=== PATIENT | male | born 1940 | race Caucasian/White ===

== ENCOUNTER → 2019-07-25 | Outpatient (REF) | payer MEDICARE ==
[~2019-07-25] MED LIST: ALLO100T PO; AMLO25TA PO; ASPI325T PO; ASPI81TA83 OR; BENAZEPRIL/HCTZ OR; CALC1CAP31 PO; CRES10TA32 OR; FISHCAP PO; FURO40TA2 PO; KLOR1TAB69 PO; LOPRESSOR PO; METO1TAB32 PO; MINO2.5T PO; PLAV75TA2 OR; TYLE325T5 PO
[2019-07-27 12:45] LABS: HEPATITIS B CORE ANTIBODY IGM NEGATIVE (NEGATIVE); HEPATITIS B SURFACE ANTIBODY NEGATIVE (POSITIVE); HEPATITIS B SURFACE ANTIGEN NEGATIVE (NEGATIVE); HEPATITIS C VIRUS ABY INDEX 0.1 INDEX (<0.8)
== END ==
LOC: M LAB REF 16:46
PROVIDERS: ATTEND Internal Medicine Nephrology
DX: N18.6 End stage renal disease (principal); Z79.899 Other long term (current) drug therapy

== ENCOUNTER 2019-09-01 11:56 | Outpatient (CLI) | payer MEDICARE ==
[~2019-09-01] VITALS: Ht 177.8 cm; Wt 104.5 kg
[2019-09-01 13:00] VITALS: BP 139/61
[2019-09-01 14:00] VITALS: BP 130/67
[2019-09-01] MEDS ORDERED: diphenhydrAMINE INJ 50MG/ML VIAL (J1200) IV PRN (14:00)
[2019-09-01] MEDS ORDERED: EPINEPHrine INJ 1 MG/ML 1ML VIAL IM PRN (14:00)
[2019-09-01] MEDS ORDERED: ALBUTEROL SULFATE 2.5 MG/0.5 ML INH NEB SOLN INH PRN (14:00)
[2019-09-01] MEDS ORDERED: methylPREDNISolone INJ 125 MG/2 ML VIAL (J2930) IV PRN (14:00)
[2019-09-01] MEDS ORDERED: FERRIC CARBOXYMALTOSE INJ 750 MG in NS 250 ML IV ONE (14:00)
[2019-09-01] MEDS ORDERED: NS 1,000 ML IV SCH (14:00)
[2019-09-01] MEDS ORDERED: diphenhydrAMINE INJ 50MG/ML VIAL (J1200) IV ONE (14:00)
[2019-09-01 15:00] VITALS: BP 141/74
[2019-09-01 15:30] VITALS: BP 141/67
== END 2019-09-01 15:35 | disposition home or self-care (01) ==
LOC: M INFU 11:56
PROVIDERS: ATTEND Internal Medicine Nephrology
DX: D50.9 Iron deficiency anemia, unspecified (principal)
CPT/HCPCS: 96365; J1200; J1439

== ENCOUNTER 2019-09-08 10:28 | Outpatient (CLI) | payer MEDICARE ==
[~2019-09-08] VITALS: Ht 177.8 cm; Wt 104.5 kg
[2019-09-08 10:50] VITALS: BP 123/61
[2019-09-08] MEDS ORDERED: EPINEPHrine INJ 1 MG/ML 1ML VIAL IM PRN (11:00)
[2019-09-08] MEDS ORDERED: diphenhydrAMINE INJ 50MG/ML VIAL (J1200) IV PRN (11:00)
[2019-09-08] MEDS ORDERED: methylPREDNISolone INJ 125 MG/2 ML VIAL (J2930) IV PRN (11:00)
[2019-09-08] MEDS ORDERED: FERRIC CARBOXYMALTOSE INJ 750 MG in NS 250 ML IV ONE (11:00)
[2019-09-08] MEDS ORDERED: NS 1,000 ML IV SCH (11:00)
[2019-09-08] MEDS ORDERED: diphenhydrAMINE INJ 50MG/ML VIAL (J1200) IV ONE (11:00)
[2019-09-08] MEDS ORDERED: ALBUTEROL SULFATE 2.5 MG/0.5 ML INH NEB SOLN INH PRN (11:00)
[2019-09-08 12:31] VITALS: BP 143/67
== END 2019-09-08 12:35 | disposition home or self-care (01) ==
LOC: M INFU 10:28
PROVIDERS: ATTEND Internal Medicine Nephrology
DX: D50.9 Iron deficiency anemia, unspecified (principal)
CPT/HCPCS: 96365; 96375; J1200; J1439

== ENCOUNTER → 2019-09-28 | Outpatient (CLI) | payer MEDICARE ==
[~2019-09-28] MED LIST changes: +ISOVUE-370 76% 100ML VIAL (Q9967) As Ordered ONE
--- NOTE | 2019-09-28 08:23 | REP ---
CT PULMONARY ANGIOGRAM: With IV contrast. HISTORY: Chronic pulmonary embolism. COMPARISON STUDIES: Comparison noncontrast CT study March 21, 2016. CONTRAST DOSE: 75 mL of Isovue [address] TECHNIQUE: Helical scanning is acquired and overlapping 1.5 mm and contiguous 3 mm axial images are reformatted. In addition, maximum intensity projection and multiplanar re-formation images are generated in sagittal and coronal imaging projections. CT PULMONARY ANGIOGRAPHIC FINDINGS: There is good opacification of the pulmonary arterial tree. Median sternotomy wires and mediastinal clips are noted consistent with previous coronary bypass surgery. There is no evidence of pulmonary arterial filling defect or vessel cutoff. No CT evidence of pulmonary embolism is visible. The thoracic aorta shows vascular calcification. No evidence of aneurysm or dissection. There is mild diffuse pleural thickening and there are pleural calcifications scattered bilaterally suggesting previous asbestos exposure. No adrenal lesion is seen. There is marked atrophy of the left kidney and mild atrophy of the right kidney. Cholelithiasis is noted. There is an infrarenal abdominal aortic aneurysm visible at the bottom of the imaging field of view with a stent graft in place. Cardiomegaly is observed. There is no evidence of pericardial or free pleural effusion. There is a small quantity of fissural fluid on the right. There are scattered pretracheal and superior mediastinal lymph nodes. The largest of these is a right paratracheal lymph node in the superior mediastinum measuring 13 mm in short axis dimension. No definite adenopathy. One or two of these lymph nodes contain granulomatous calcifications. There is a right-sided central venous tunnel catheter in place. IMPRESSION: No CT evidence of pulmonary embolus. Cardiomegaly. Small quantity of pleural fluid in the fissures. Cholelithiasis, renal cortical atrophy, granulomatous changes. Calcific pleural plaquing. Prior sternotomy and abdominal aortic stent graft. Electronically Signed by Nirmal Ambrosio MD 09/28/2019 08:59 A
== END ==
LOC: M RAD 07:38
PROVIDERS: ATTEND Internal Medicine Nephrology
DX: I27.82 Chronic pulmonary embolism (principal)
CPT/HCPCS: 71275; Q9967

== ENCOUNTER 2020-07-11 16:02 | Inpatient (IN) | payer MEDICARE ==
[~2020-07-11] VITALS: Ht 177.8 cm; Wt 87.9 kg
[2020-07-11] MEDS: PANTOPRAZOLE SODIUM 40 MG in D5W 50 ML IV SCH ×2 (03:40→18:58)
[~2020-07-11 16:02] MED LIST changes: -ISOVUE-370 76% 100ML VIAL (Q9967) As Ordered ONE
--- OUTSIDE RECORDS SUMMARY | 2020-07-11 16:11 | CCD ---
Continuity of Care Document (CCD) Created on: 05/22/2020 Jaren Wallis JR External Reference #: [id number] : [id number] Sex: Male Author Author Jaren FIELD D.O. Organization Unknown Address [address] [address] Phone [phone] Problems Active Problems Provider Date Coronary arteriosclerosis Delvis Field D.O., [place] Onset : 04/02/2008 Hyperlipidemia Delvis Field D.O., FAAFP Onset: 03/22 Benign essential hypertension Delvis Field D.O., MIRNAFP O nset: 04/02/2008 Type 2 diabetes mellitus Delvis Field D.O., FAAFP Onset: 01/17/2010 Gout Delvis Field D.O., FAAFP Onset: 12/21 Cerebrovascular disease Delvis Field D.O., FAAFP Onset: 03/14/2011 Obesity Delvis Field D.O., FAAFP Onset: 06/23 Proteinuria Delvis Field D.O., FAAFP Onset: 06/23 Chronic kidney disease stage 4 Delvis Field D.O., FAAFP Onset: 06/07/2015 History of malignant neoplasm of bladder Lashonda Nj, FAAFP Onset: 07/11/2018 Note: followed by urology said to be non invasive Social History Type Date Description Comments Sex Unknown Tobacco Use Start: Unknown Never Smoked Cigarettes ETOH Use current.liquor.rarely Tobacco Use Start: Unknown Patient has never smoked Smoking Status Reviewed: 05/22/20 Patient has never smoked Allergies, Adverse Reactions, Alerts Active Allergies Reaction Severity Comments Date No Drug Allergies 03/31/2008 NSAIDs RENAL FAILURE 03/29/2014 Inactive Allergies NKDA 12/09/2010 Medications Active Medications SIG Qnty Indications Ordering Provide r Date Crestor 10mg Tablets take one tablet by mouth every day 90tabs Delvis Field D.O., [facility] 05/2016 Clopidogrel Bisulfate 75mg Tablets take one tablet by mouth every day 90tabs Laura Nj, [facility] 11/17/[address] 1 by mouth every day Unknown Calcitriol 0.25mcg Capsules take one capsule by mouth one time daily during dyalisis 3 times a week Unknown Sevelamer Carbonate 800mg Tablets 2 PO tid with meals Unknown Vitamin D3 Ultra Potency 1.25mg (22228 Ut) Tablets take one tablet once a week Unknown Pentoxifylline ER 400mg Tablets ER 1 by mouth twice a day Unknown History Medications Mupirocin 2% Ointment top twice a day x 10 days prn Lesions Please Call Patient 22gm Delvis Field D.O., [facility] 02/22/2020 - 05/22/2020 Medications Administered in Office Medication SIG Qnty Indications Ordering Provider Date Injection (SC)/(Im) Injection Delvis Field D.O., [facility] 01/14/2010 Immunizations CPT Code Status Date Vaccine Reaction Lot # [id number] Given 01/14/2010 Tdap Tetanus,Dip htheria Toxoids/Acellular Pertussis 7Yrs Or Older [id number] Refused 05/22/2020 Influenza Virus Vaccine, Quadrivalent, Slit Virus, Im Use 3Y & Up 05754 Refused 03/27/2017 Influenza Virus Vaccine, Quadrivalent, Slit Virus, Im Use 3Y & Up 01159 Refused 04/18/2016 Influenza Virus Vaccine, Quadrivalent, Slit Virus, Im Use 3Y & Up 98896 Refused 05/19/2014 Influenza Virus Vac. Split Virus Individuals 3 Years And Above 79320 Refused 07/14/2012 Pneumococcal Immunization 67867 Refused 04/07/2012 Influenza Virus Vac. Split Virus Individuals 3 Years And Above pt refused Vital Signs Date Vital Result Comment 05/22/2020 1:50pm BP Systolic 118 mmHg BP Diastolic 68 mmHg Body Temperature 98.4 F Heart Rate 70 /min Respiratory Rate 16 /min Height 70 inches 5'10" Weight 198.00 lb [place] Body Weight 166 lb BMI (Body Mass Index) 28.4 kg/m2 O2 % BldC Oximetry 97 % 02/21/2020 1:14pm BP Systolic 118 mmHg BP Diastolic 74 mmHg Body Temperature 98.0 F Heart Rate 70 /min Respiratory Rate 16 /min Height 70 inches 5'10" Weight 198.00 lb [place] Body Weight 166 lb BMI (Body Mass Index) 28.4 kg/m2 O2 % BldC Oximetry 94 % Results Test Acquired Date Facility Test Result H/L Range Note Laboratory test finding 05/22/2020 [facility] Hemoglobin A1c 4.9 % 4.40 - 6.10 Laboratory test finding 02/21/2020 [facility] Hemoglobin A1c 5.3 % 4.40 - 6.10 Procedures Date Code Description Status 02/21/2020 35570 Capillary Blood Collection Finge r, Heel, Ear Stick Completed Medical Devices Description No Information Available Encounters Type Date Location Provider Dx Diagnosis Office Visit 05/22/2020 1:30p [place] [facility] Tim Nj, [facility] R73.09 Other abnormal glucose Z99.2 Dependence on renal dialysis E78.5 Hyperlipidemia, unspecified I25.810 Atherosclerosis of CABG w/o angina pectoris Office Visit 02/21/2020 1:00p [place] [facility] Tim Nj, FAAFP E11.9 Type 2 diabetes mellitus without complic ations I73.9 Peripheral vascular disease, unspecified Office Visit 11/24/2019 1:00p [place] [facility] Aaron Trejo M.D . R21 Rash and other nonspecific skin eruption Assessments Date Code Description Provider 05/22/2020 R73.09 Other abnormal glucose Delvis Field D.O., FAAFP 05/22/2020 Z99.2 Dependence on renal dialysis Calixto Field D.O., FAAFP 05/22/2020 E78.5 Hyperlipidemia, unspecified Ever Field D.O., FAAFP 05/22/2020 I25.810 Atherosclerosis of c oronary artery bypass graft(s) without angina pectoris Delvis Field D.O., FAAFP 02/21/2020 E11.9 Type 2 diabetes mellitus without complications Delvis Field D.O., FAAFP 02/21/2020 I73.9 Peripheral vascular disease, uns pecified Delvis Field D.O., FAAFP 11/24/2019 R21 Rash and other nonspecific skin eruption Aaron Trejo M.D. Plan of Treatment Future Appointment(s):* 08/21/2020 1:45 pm - Delvis Field D.O., FAA at [facility] Functional Status Description No Information Available Mental Status Description No Information Available Referrals Description No Information Available
--- OUTSIDE RECORDS SUMMARY | 2020-07-11 16:11 | CCD | Continuity of Care Document ---
Author Author Jaren ARANA Organization Unknown Address [address] [place] [address] Phone [phone] Care Team Providers Care Training And Documentation Specialist Name Role Phone Delvis Veronica D.O. AUTM [phone] Luke Avila M.D. AUTM [phone] John Mullen M.D. AUTM [phone] [facility] Care Everywhere AUTM Problems Active Problems Provider Date Essential hypertension Giuseppe Espinosa M.D. Onset: 01/23/2014 Hyperlipidemia Giuseppe Espinosa M.D. Onset: 01/23/2014 Coronary arteriosclerosis Giuseppe Espinosa M.D. Onset: 014 Acute myocardial infarction Giuseppe Espinosa M.D. Onset: 01/23 Cerebrovascular disease Giuseppe Espinosa M.D. Onset: 4 Abdominal aortic aneurysm without rupture Belinda Hernandez M.D. Onset: 02/10/2014 Proteinuria John Mullen M.D. Onset: 02/21/2014 History of cerebrovascular accident John Mullen M.D. Onse t: 02/21/2014 Gout John Mullen M.D. Onset: 02/21/2014 Type 2 diabetes mellitus John Mullen M.D. Onset: 02/22/20 14 Kidney disease Onset: 12/13/2014 End-stage renal disease Nael Welsh Onset: 0 Social History Type Date Description Comments Sex Unknown ETOH Use Rarely consumes alcohol Tobacco Use Reviewed: 05/10/20 Patient has never smoked Smoking Status Reviewed: 05/10/20 Patient has never smoked Allergies, Adverse Reactions, Alerts Active Allergies Reaction Severity Comments Date Contrast Dye decreased renal function Medications Active Medications SIG Qnty Indications Ordering Provide r Date Metoprolol Succinate ER 50mg Tablets ER 24HR bid Unknown Clopidogrel Bisulfate 75mg Tablets 1 by mouth every day 30tabs Unknown Crestor 10mg Tablets 3 Days A Week Unknown Calcitriol 0.25mcg Capsules e very day Unknown Aspirin [address] tu trae day Unknown Vitamin D (Ergocalciferol) 1.25mg (63150 Ut) Capsules every week Unknown Sevelamer HCL 800mg Tablets 3 tablets 3x /day Unknown Pentoxifylline ER 400mg Tablets ER take one tablet by mouth three times a day Unknown Immunizations Description No Information Available Vital Signs Date Vital Result Comment 05/10/2020 1:18pm BP Systolic Right Arm 110 mmHg BP Diastolic Right Arm 70 mmHg Heart Rate 40 /min Height 70 inches 5'10" Weight 195.00 lb Weight 88.452 kg BMI (Body Mass Index) 28.0 kg/m2 04/18/2020 2:08pm BP Systolic Right Arm 130 mmHg BP Diastolic Right Arm 80 mmHg Heart Rate 70 /min Weight 195.00 lb Weight 88.452 kg Results Test Acquired Date Facility Test Result H/L Range Note Xray 01/17/2020 Main Office [phone] Carotid Ultrasound Bilateral <pending> Abdominal Aortic Aneurysm Ultrasound <pending> Procedures Date Code Description Status 01/17/2020 81259 Duplex Scan Aorta/In f Vena Cava/Iliac Vasc/Bypass GRFT LTD/Fol-Up Completed 01/17/2020 22838 Duplex Scan Extracranial Arterie s, Follow-Up Or Limited Study Completed 01/17/2020 98067 Duplex Scan Extracranial Arterie s, Follow-Up Or Limited Study Completed Medical Devices Description No Information Available Encounters Type Date Location Provider Dx Diagnosis Office Visit 04/18/2020 2:00p Main Office Belinda Hernandez M.D. 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 01/17/2020 Z48.812 Encounter for surgic al aftercare following surgery on the circulatory system Belinda Hernandez M.D. 01/17/2020 Z48.812 Encounter for surgic al aftercare following surgery on the circulatory system [facility] Lab 01/17/2020 I71.4 Abdominal aortic aneurysm, witho ut rupture Belinda Hernandez M.D. 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 11/18/2019 L97.419 Non-pressure chronic ulcer of right heel and midfoot with unspecified severity Belinda Hernandez M.D. Plan of Treatment Future Appointment(s):* 01/22/2021 11:30 am - [facility] * 01/22/2021 11:30 am - Belinda Hernandez M.D. at [facility] * 08/17/2020 11:00 am - Belinda Hernandez M.D. at Main Office * 08/17/2020 10:00 am - Vascular Lab at Main Office Functional Status Description No Information Available Mental Status Description No Information Available Referrals Description No Information Available
--- OUTSIDE RECORDS SUMMARY | 2020-07-11 16:11 | CCD | Continuity of Care Document ---
Author Author Jaren VERONICA D.O. Organization Unknown Address [address] [address] Phone [phone] Problems Active Problems Provider Date Coronary arteriosclerosis Delvis Veronica D.O., [place] Onset : 04/02/2008 Hyperlipidemia Delvis Veronica D.O., FAAFP Onset: 03/22 Gout Delvis Veronica D.O., FAAFP Onset: 12/21 Cerebrovascular disease Delvis Veronica D.O., FAAFP Onset: 03/14/2011 Obesity Delvis Veronica D.O., FAAFP Onset: 06/23 Proteinuria Delvis Veronica D.O., FAAFP Onset: 06/23 Chronic kidney disease stage 4 Delvis Veronica D.O., FAAFP Onset: 06/07/2015 History of malignant neoplasm of bladder Lashonda Nj, FAAFP Onset: 07/11/2018 Note: followed by urology said to be non invasive Renal dialysis Delvis Veronica D.O., FAAFP Onset: 06/2019 Social History Type Date Description Comments Sex [...] tablet by mouth every day 90tabs Delvis Veronica D.O., FAAFP 05/2016 Clopidogrel Bisulfate 75mg Tablets take one tablet by mouth every day 90tabs Laura Nj, [facility] 11/17/[address] 1 by mouth every day Unknown Calcitriol 0.25mcg Capsules take one capsule by mouth one time daily during dyalisis 3 times a week Unknown Sevelamer Carbonate 800mg Tablets 2 PO tid with meals Unknown Vitamin D3 Ultra Potency 1.25mg (38894 Ut) Tablets take one tablet once a week Unknown Pentoxifylline ER 400mg Tablets ER 1 by mouth twice a day Unknown History Medications Mupirocin 2% Ointment top twice a day x 10 days prn Lesions Please Call Patient 22gm Delvis Veronica D.O., [facility] 02/22/2020 - 05/22/2020 Medications Administered in Office Medication SIG Qnty Indications Ordering Provider Date Injection (SC)/(Im) Injection Delvis Veronica D.O., [facility] 01/14/2010 Immunizations CPT Code Status Date Vaccine Reaction Lot # [id number] Given 01/14/2010 Tdap Tetanus,Dip htheria Toxoids/Acellular Pertussis 7Yrs Or Older [id number] Refused 05/22/2020 Influenza Virus Vaccine, Quadrivalent, Slit Virus, Im Use 3Y & Up 47064 Refused 03/27/2017 Influenza Virus Vaccine, Quadrivalent, Slit Virus, Im Use 3Y & Up 63930 Refused 04/18/2016 Influenza Virus Vaccine, Quadrivalent, Slit Virus, Im Use 3Y & Up 31796 Refused 05/19/2014 Influenza Virus Vac. Split Virus Individuals 3 Years And Above 98182 Refused 07/14/2012 Pneumococcal Immunization 19609 Refused 04/07/2012 Influenza Virus Vac. Split Virus Individuals 3 Years And Above pt refused Vital Signs Date Vital Result Comment 05/22/2020 1:50pm BP Systolic 118 mmHg BP Diastolic 68 mmHg Body Temperature 98.4 F Heart Rate 70 /min Respiratory Rate 16 /min Height 70 inches 5'10" Weight 198.00 lb [place] Body Weight 166 lb BMI (Body Mass Index) 28.4 kg/m2 O2 % BldC Oximetry 97 % 02/21/2020 1:14pm BP Systolic 118 mmHg BP Diastolic 74 mmHg Body Temperature 98.0 F Heart Rate 70 /min Respiratory Rate 16 /min Height 70 inches 5'10" Weight 198.00 lb [place] Body Weight 166 lb BMI (Body Mass Index) 28.4 kg/m2 O2 % BldC Oximetry 94 % Results Test Acquired Date Facility Test Result H/L Range Note Laboratory test finding 05/22/2020 [facility] Hemoglobin A1c 4.9 % 4.40 - 6.10 Laboratory test finding 02/21/2020 [facility] Hemoglobin A1c 5.3 % 4.40 - 6.10 Procedures Date Code Description Status 05/22/2020 39378 Capillary Blood Collection Finge r, Heel, Ear Stick Completed 02/21/2020 00669 Capillary Blood Collection Finge r, Heel, Ear Stick Completed Medical Devices Description No Information Available Encounters Type Date Location Provider Dx Diagnosis Office Visit 05/22/2020 1:30p [place] [facility] Tim Nj, FAAFP R73.09 Other abnormal glucose Z99.2 Dependence on renal dialysis E78.5 Hyperlipidemia, unspecified I25.810 Atherosclerosis of CABG w/o angina pectoris Office Visit 02/21/2020 1:00p [place] [facility] Tim Nj, FAAFP E11.9 Type 2 diabetes mellitus without complic ations I73.9 Peripheral vascular disease, unspecified Assessments Date Code Description Provider 05/22/2020 R73.09 Other abnormal glucose Delvis Veronica D.O., FAAFP 05/22/2020 Z99.2 Dependence on renal dialysis Calixto Veronica D.O., FAAFP 05/22/2020 E78.5 Hyperlipidemia, unspecified Ever Veronica D.O., FAAFP 05/22/2020 I25.810 Atherosclerosis of c oronary artery bypass graft(s) without angina pectoris Delvis Veronica D.O., FAAFP 02/21/2020 E11.9 Type 2 diabetes mellitus without complications Delvis Veronica D.O., FAAFP 02/21/2020 I73.9 Peripheral vascular disease, uns pecified Delvis Veronica D.O., FAAFP Plan of Treatment Future Appointment(s):* 08/21/2020 1:45 pm - Delvis Veronica D.O., MIRNAFP at [facility] Functional Status Description No Information Available Mental Status Description No Information Available Referrals Description No Information Available
--- OUTSIDE RECORDS SUMMARY | 2020-07-11 16:11 | CCD | Continuity of Care Document ---
Author Author Jaren ARANA Organization Unknown Address [address] [place] [address] Phone [phone] Care Team Providers Care Hot Worker Name Role Phone Delvis Veronica D.O. AUTM [phone] Luke Avila M.D. AUTM [phone] John Mullen M.D. AUTM [phone] [facility] Care Everywhere AUTM [phone] Problems Active Problems Provider Date Essential hypertension [...] trae day Unknown Vitamin D (Ergocalciferol) 1.25mg (59702 Ut) Capsules every week Unknown Sevelamer HCL [...] H/L Range Note Xray 01/17/2020 Main Office [phone] Carotid Ultrasound Bilateral <pending> Abdominal Aortic Aneurysm Ultrasound <pending> Procedures Date Code Description Status 05/01/2020 66480 Revise Arteriovenous Fistula Com pleted 01/17/2020 62069 Duplex Scan Aorta/In f Vena Cava/Iliac Vasc/Bypass GRFT LTD/Fol-Up Completed 01/17/2020 67301 Duplex Scan Extracranial Arterie s, Follow-Up Or Limited Study Completed 01/17/2020 80492 Duplex Scan Extracranial Arterie s, Follow-Up Or Limited Study Completed Medical Devices Description No Information Available Encounters Type Date Location Provider Dx Diagnosis Office Visit 05/10/2020 1:15p Main Office Nael Welsh Z48.812 Encntr for surgical aftcr following surgery on the circ sys Office Visit 04/18/2020 2:00p Main Office Belinda Hernandez M.D. 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 04/18/2020 N18.6 End stage renal disease Belinda [...] Future Appointment(s):* 01/22/2021 11:30 am - [facility] * 01/22/2021 11:30 am - Belinda Hernandez M.D. at [facility] * 08/17/2020 11:00 am - Belinda Hernandez M.D. at Main Office * 08/17/2020 10:00 am - Vascular Lab at Main Office 05/10/2020 - Emerald Welsh.* Z48.812 Encntr for surgical aftcr following surgery on the circ sys Functional Status Description No Information Available Mental Status Description No Information Available Referrals Description No Information Available
--- OUTSIDE RECORDS SUMMARY | 2020-07-11 16:11 | CCD ---
Continuity of Care Document (CCD) Created on: 04/24/2020 Jaren Wallis JR External Reference #: [id number] Sex: Male Author Author Jaren HERNANDEZ MD Organization Unknown Address [address] [place] [address] Phone [phone] Care Team Providers Care Cnc Mill Set Up Operator Name Role Phone Jeremías Delvis Newell AUTM [phone] Luke Avila M.D. AUTM [phone] John Mullen M.D. AUTM [phone] Problems Active Problems Provider Date Essential hypertension [...] Onset: 02/22/20 14 Kidney disease Onset: 12/13/2014 Social History Type Date Description Comments Sex Unknown ETOH Use Rarely consumes alcohol Tobacco Use Reviewed: 04/18/20 Patient has never smoked Smoking Status Reviewed: 04/18/20 Patient has never smoked Allergies, Adverse Reactions, [...] Unknown Aspirin [address] tu larkin day Unknown Vitamin D (Ergocalciferol) 1.25mg (13081 Ut) Capsules every week Unknown Sevelamer HCL 800mg Tablets 3 tablets 3x /day Unknown Pentoxifylline ER 400mg Tablets ER take one tablet by mouth three times a day Unknown History Medications Eliquis 2.5mg Tablets 1 tab by mouth twice a day 60tabs Belinda Hernandez M.D. 10/25/2019 - 10/30/2019 Immunizations Description No Information Available Vital Signs Date Vital Result Comment 04/18/2020 2:08pm BP Systolic Right Arm 130 mmHg BP Diastolic Right Arm 80 mmHg Heart Rate 70 /min Weight 195.00 lb Weight 88.452 kg 01/24/2020 11:03am BP Systolic Right Arm 131 mmHg BP Diastolic Right Arm 89 mmHg Heart Rate 69 /min Body Temperature 96.0 F Respiratory Rate 17 /min Weight 199.94 lb Weight 90.700 kg O2 % BldC Oximetry 97 % Pain Level 0 Results Test Acquired Date Facility Test Result H/L Range Note Xray 01/17/2020 Main Office [phone] Carotid Ultrasound Bilateral <pending> Abdominal Aortic Aneurysm Ultrasound <pending> Procedures Date Code Description Status 01/17/2020 30841 Duplex Scan Aorta/In f Vena Cava/Iliac Vasc/Bypass GRFT LTD/Fol-Up Completed 01/17/2020 19430 Duplex Scan Extracranial Arterie s, Follow-Up Or Limited Study Completed 01/17/2020 92638 Duplex Scan Extracranial Arterie s, Follow-Up Or [...] Future Appointment(s):* 01/22/2021 11:30 am - [facility] * 01/22/2021 11:30 am - Belinda Hernandez M.D. at [facility] * 08/17/2020 11:00 am - Belinda Hernandez M.D. 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
--- OUTSIDE RECORDS SUMMARY | 2020-07-11 16:11 | CCD | Continuity of Care Document ---
Author Author Jaren HERNANDEZ MD Organization Unknown Address [address] [place] [id number] Phone [phone] Care Team Providers Care Customer Engineering Specialist Name Role Phone Delvis Veronica D.O. AUTM [phone] Luke Avila M.D. AUTM [phone] John Mullen M.D. AUTM [phone] [facility] Care Everywhere AUTM Problems Active Problems [...] Aspirin [address] tu trae Unknown Vitamin D (Ergocalciferol) 1.25mg (88239 Ut) Capsules every week Unknown Sevelamer HCL [...] H/L Range Note Xray 01/17/2020 Main Office [phone] Carotid Ultrasound Bilateral <pending> Abdominal Aortic Aneurysm Ultrasound <pending> Procedures Date Code Description Status 05/01/2020 24861 Revise Arteriovenous Fistula Com pleted 01/17/2020 41704 Duplex Scan Aorta/In f Vena Cava/Iliac Vasc/Bypass GRFT LTD/Fol-Up Completed 01/17/2020 17120 Duplex Scan Extracranial Arterie s, Follow-Up Or Limited Study Completed 01/17/2020 00344 Duplex Scan Extracranial Arterie s, Follow-Up Or [...] unsp severt Assessments Date Code Description Provider 05/01/2020 T82.898A Other specified comp lication of [...] Future Appointment(s):* 01/22/2021 11:30 am - [facility] [...]
--- OUTSIDE RECORDS SUMMARY | 2020-07-11 16:12 | CCD ---
Author Author [facility] Organization [facility] Address Unknown Phone Unavailable Care Team Providers Care Putty Mixer And Applier Name Role Phone Cassandra, Bossman Lopez MD Unavailable Unavailable Cassandra, Bossman Lopez MD Unavailable Unavailable Cassandra, Bossman Lopez MD Unavailable Unavailable Cassandra, Bossman Lopez MD Unavailable Unavailable Cassandra, Bossman Lopez MD Unavailable Unavailable Cassandra, Bossman Lopez MD Unavailable Unavailable Cassandra, Bossman Lopez MD Unavailable Unavailable Cassandra, Bossman Lopez MD Unavailable Unavailable Cassandra, Bossman Lopez MD Unavailable Unavailable Cassandra, Bossman Lopez MD Unavailable Unavailable Cassandra, Bossman Lopez MD Unavailable Unavailable Cassandra, Bossman Lopez MD Unavailable Unavailable Cassandra, Bossman Lopez MD Unavailable Unavailable Cassandra, Bossman Lopez MD Unavailable Unavailable Cassandra, Bossman Lopez MD Unavailable Unavailable Cassandra, Bossman Lopez MD Unavailable Unavailable Cassandra, Bossman Lopez MD Unavailable Unavailable Cassandra, Bossman Lopez MD Unavailable Unavailable Cassandra, Bossman Lopez MD Unavailable Unavailable Cassandra, Bossman Lopez MD Unavailable Unavailable Cassandra, Bossman Lopez MD Unavailable Unavailable Cassandra, Bossman Lopez MD Unavailable Unavailable Cassandra, Bossman Lopez MD Unavailable Unavailable Cassandra, Bossman Lopez MD Unavailable Unavailable Cassandra, Bossman Lopez MD Unavailable Unavailable Cassandra, Bossman Lopez MD Unavailable Unavailable Cassandra, Bossman Lpoez MD Unavailable Unavailable Cassandra, Bossman Lopez MD Unavailable Unavailable Cassandra, P Khalid MD Unavailable Unavailable Cassandra, P Khalid MD Unavailable Unavailable Cassandra, P Khalid MD Unavailable Unavailable Cassandra, P Khalid MD Unavailable Unavailable Cassandra, P Khalid MD Unavailable Unavailable Cassandra, P Khalid MD Unavailable Unavailable Cassandra, P Khalid MD Unavailable Unavailable Cassandra, P Khalid MD Unavailable Unavailable Cassandra, P Khalid MD Unavailable Unavailable Cassandra, P Khalid MD Unavailable Unavailable Cassandra, P Khalid MD Unavailable Unavailable Cassandra, P Khalid MD Unavailable Unavailable Cassandra, P Khalid MD Unavailable Unavailable Cassandra, P Khalid MD Unavailable Unavailable Cassandra, P Khalid MD Unavailable Unavailable Cassandra, P Khalid MD Unavailable Unavailable Cassandra, P Khalid MD Unavailable Unavailable Cassandra, P Khalid MD Unavailable Unavailable Cassandra, P Khalid MD Unavailable Unavailable Cassandra, P Khalid MD Unavailable Unavailable Cassandra, P Khalid MD Unavailable Unavailable Cassandra, P Khalid MD Unavailable Unavailable Fish, J Delvis Unavailable Unavailable Fish, J Delvis Unavailable Unavailable Fish, J Delvis Unavailable Unavailable Fish, J Delvis Unavailable Unavailable Fish, J Delvis Unavailable Unavailable Fish, J Delvis Unavailable Unavailable Fish, J Delvis Unavailable Unavailable Fish, J Delvis Unavailable Unavailable Fish, J Delvis Unavailable Unavailable Fish, J Delvis Unavailable Unavailable Fish, J Delvis Unavailable Unavailable Fish, J Delvis Unavailable Unavailable Fish, J Delvis Unavailable Unavailable Fish, J Delvis Unavailable Unavailable Fish, J Delvis Unavailable Unavailable Fish, J Delvis Unavailable Unavailable Fish, J Delvis Unavailable Unavailable Fish, J Delvis Unavailable Unavailable Fish, J Delvis Unavailable Unavailable Fish, J Delvis Unavailable Unavailable Fish, J Delvis Unavailable Unavailable Fish, J Delvis Unavailable Unavailable Fish, J Delvis Unavailable Unavailable Fish, J Delvis Unavailable Unavailable Fish, J Delvis Unavailable Unavailable Fish, J Delvis Unavailable Unavailable Fish, J Delvis Unavailable Unavailable Fish, J Delvis Unavailable Unavailable Fish, J Delvis Unavailable Unavailable Fish, J Delvis Unavailable Unavailable Fish, J Delvis Unavailable Unavailable Fish, J Delvis Unavailable Unavailable Fish, J Delvis Unavailable Unavailable Fish, J Delvis Unavailable Unavailable Fish, J Delvis Unavailable Unavailable Fish, J Delvis Unavailable Unavailable Fish, J Delvis Unavailable Unavailable Fish, J Delvis Unavailable Unavailable Fish, J Delvis Unavailable Unavailable Fish, J Delvis Unavailable Unavailable Fish, J Delvis Unavailable Unavailable Fish, J Delvis Unavailable Unavailable Fish, J Delvis Unavailable Unavailable Fish, J Delvis Unavailable Unavailable Fish, J Delvis Unavailable Unavailable Fish, J Delvis Unavailable Unavailable Fish, J Delvis Unavailable Unavailable Fish, J Delvis Unavailable Unavailable Fish, J Delvis Unavailable Unavailable Fish, J Delvis Unavailable Unavailable Fish, J Delvis Unavailable Unavailable Fish, J Delvis Unavailable Unavailable Fish, J Delvis Unavailable Unavailable Fish, J Delvis Unavailable Unavailable Fish, J Delvis Unavailable Unavailable Fish, J Delvis Unavailable Unavailable Fish, J Delvis Unavailable Unavailable Fish, J Delvis Unavailable Unavailable Fish, J Delvis Unavailable Unavailable Fish, J Delvis Unavailable Unavailable Fish, J Delvis Unavailable Unavailable Fish, J Delvis Unavailable Unavailable Fish, J Delvis Unavailable Unavailable Fish, J Delvis Unavailable Unavailable Fish, J Delvis Unavailable Unavailable Fish, J Delvis Unavailable Unavailable Fish, J Delvis Unavailable Unavailable Fish, J Delvis Unavailable Unavailable Fish, J Delvis Unavailable Unavailable Fish, J Delvis Unavailable Unavailable Fish, J Delvis Unavailable Unavailable Fish, J Delvis Unavailable Unavailable Fish, J Delvis Unavailable Unavailable Fish, J Delvis Unavailable Unavailable Fish, J Delvis Unavailable Unavailable Fish, J Delvis Unavailable Unavailable Fish, J Delvis Unavailable Unavailable Fish, J Delvis Unavailable Unavailable Fish, J Delvis Unavailable Unavailable Fish, J Delvis Unavailable Unavailable Fish, J Delvis Unavailable Unavailable Fish, J Delvis Unavailable Unavailable Fish, J Delvis Unavailable Unavailable Fish, J Delvis Unavailable Unavailable Fish, J Delvis Unavailable Unavailable Lynette MENDEZ MD Unavailable Unavailable Lynette MENDEZ MD Unavailable Unavailable Lynette MENDEZ MD Unavailable Unavailable Lynette MENDEZ MD Unavailable Unavailable Lynette MENDEZ MD Unavailable Unavailable Lynette MENDEZ MD Unavailable Unavailable Lynette MENDEZ MD Unavailable Unavailable Lynette MENDEZ MD Unavailable Unavailable Lynette MENDEZ MD Unavailable Unavailable Lynette MENDEZ MD Unavailable Unavailable Lynette MENDEZ MD Unavailable Unavailable Lynette MENDEZ MD Unavailable Unavailable Lynette MENDEZ MD Unavailable Unavailable VANESSA H AUDIE BAKER Unavailable Unavailable VANESSA H AUDIE BAKER Unavailable Unavailable VANESSA, H AUDIE BAKER Unavailable Unavailable VANESSA H AUDIE BAKER Unavailable Unavailable VANESSA, H AUDIE BAKER Unavailable Unavailable VANESSA H AUDIE MD Unavailable Unavailable VANESSA H AUDIE MD Unavailable Unavailable VANESSA, H AUDIE MD Unavailable Unavailable VANESSA, H AUDIE MD Unavailable Unavailable VANESSA, H AUDIE ABKER Unavailable Unavailable VANESSA, H AUDIE MD Unavailable Unavailable VANESSA, H AUDIE MD Unavailable Unavailable VANESSA, H AUDIE MD Unavailable Unavailable VANESSA, H AUDIE MD Unavailable Unavailable VANESSA, H AUDIE MD Unavailable Unavailable VANESSA, H AUDIE MD Unavailable Unavailable VANESSA, H AUDIE MD Unavailable Unavailable VANESSA, H AUDIE MD Unavailable Unavailable VANESSA, H AUDIE MD Unavailable Unavailable VANESSA, H AUDIE MD Unavailable Unavailable VANESSA, H AUDIE MD Unavailable Unavailable VANESSA, H AUDIE BAKER Unavailable Unavailable VANESSA, H AUDIE BAKER Unavailable Unavailable VANESSA, H AUDIE BAKER Unavailable Unavailable VANESSA H AUDIE BAKER Unavailable Unavailable VANESSA H AUDIE BAKER Unavailable Unavailable VANESSA H AUDIE BAKER Unavailable Unavailable VANESSA H AUDIE BAKER Unavailable Unavailable VANESSA H AUDIE BAKER Unavailable Unavailable VANESSA H AUDIE BAKER Unavailable Unavailable VANESSA H AUDIE BAKER Unavailable Unavailable VANESSA H AUDIE BAKER Unavailable Unavailable Lynette MENDEZ MD Unavailable Unavailable Lynette MENDEZ MD Unavailable Unavailable Lynette MENDEZ MD Unavailable Unavailable Lynette MENDEZ MD Unavailable Unavailable Lynette MEDNEZ MD Unavailable Unavailable VANESSA H AUDIE BAKER Unavailable Unavailable Lynette MENDEZ MD Unavailable Unavailable Lynette MENDEZ MD Unavailable Unavailable Lynette MENDEZ MD Unavailable Unavailable Lynette MENDEZ MD Unavailable Unavailable Lynette MENDEZ MD Unavailable Unavailable Lynette MENDEZ MD Unavailable Unavailable Lynette MENDEZ MD Unavailable Unavailable Lynette MENDEZ MD Unavailable Unavailable VANESSA H AUDIE BAKER Unavailable Unavailable Lynette MENDEZ MD Unavailable Unavailable VANESSA H AUDIE BAKER Unavailable Unavailable Lynette MENDEZ MD Unavailable Unavailable Lynette MENDEZ MD Unavailable Unavailable Lynette MENDEZ MD Unavailable Unavailable Lynette MENDEZ MD Unavailable Unavailable Lynette MENDEZ MD Unavailable Unavailable Lynette MENDEZ MD Unavailable Unavailable VANESSA H AUDIE BAKER Unavailable Unavailable VANESSA H AUDIE BAKER Unavailable Unavailable Lynette MENDEZ MD Unavailable Unavailable VANESSA H AUDIE BAKER Unavailable Unavailable Lynette MENDEZ MD Unavailable Unavailable Lynette MENDEZ MD Unavailable Unavailable Lynette MENDEZ MD Unavailable Unavailable VANESSA H AUDIE BAKER Unavailable Unavailable Awilda WOLF MD Unavailable Unavailable Awilda WOLF MD Unavailable Unavailable Awilda WOLF MD Unavailable Unavailable Awilda WOLF MD Unavailable Unavailable Awilda WOLF MD Unavailable Unavailable LUCIANO, A VASYL MD Unavailable Unavailable LUCIANO, A VASYL MD Unavailable Unavailable LUCIANO, A VASYL MD Unavailable Unavailable LUCIANO, A VASYL MD Unavailable Unavailable LUCIANO, A VASYL MD Unavailable Unavailable LUCIANO, A VASYL MD Unavailable Unavailable LUCIANO, A VASYL MD Unavailable Unavailable LUCIANO, A VASYL MD Unavailable Unavailable LUCIANO, A VASYL MD Unavailable Unavailable LUCIANO, A VASYL MD Unavailable Unavailable LUCIANO, A VASYL MD Unavailable Unavailable LUCIANO, A VASYL MD Unavailable Unavailable LUCIANO, A VASYL MD Unavailable Unavailable LUCIANO, A VASYL MD Unavailable Unavailable LUCIANO, A VASYL MD Unavailable Unavailable LUCIANO, A VASYL MD Unavailable Unavailable LUCIANO, A VASYL MD Unavailable Unavailable LUCIANO, A VASYL MD Unavailable Unavailable LUCIANO, A VASYL MD Unavailable Unavailable LUCIANO, A VASYL MD Unavailable Unavailable LUCIANO, A VASYL MD Unavailable Unavailable LUCIANO, A VASYL MD Unavailable Unavailable LUCIANO, A VASYL MD Unavailable Unavailable LUCIANO, A VASYL MD Unavailable Unavailable LUCIANO, A VASYL MD Unavailable Unavailable LUCIANO, A VASYL MD Unavailable Unavailable LUCIANO, A VASYL MD Unavailable Unavailable LUCIANO, A VASYL MD Unavailable Unavailable LUCIANO, A VASYL MD Unavailable Unavailable LUCIANO, A VASYL MD Unavailable Unavailable LUCIANO, A VASYL MD Unavailable Unavailable LUCIANO, A VASYL MD Unavailable Unavailable LUCIANO, A VASYL MD Unavailable Unavailable LUCIANO, A VASYL MD Unavailable Unavailable LUCIANO, A VASYL MD Unavailable Unavailable LUCIANO, A VASYL MD Unavailable Unavailable LUCIANO, A VASYL MD Unavailable Unavailable LUCIANO, A VASYL MD Unavailable Unavailable LUCIANO, A VASYL MD Unavailable Unavailable LUCIANO, A VASYL MD Unavailable Unavailable LUCIANO, A VASYL MD Unavailable Unavailable LUCIANO, A VASYL MD Unavailable Unavailable LUCIANO, A VASYL MD Unavailable Unavailable LUCIANO, A VASYL MD Unavailable Unavailable LUCIANO, A VASYL MD Unavailable Unavailable LUCIANO, A VASYL MD Unavailable Unavailable LUCIANO, A VASYL MD Unavailable Unavailable LUCIANO, A VASYL MD Unavailable Unavailable LUCIANO, A VASYL MD Unavailable Unavailable LUCIANO, A VASYL MD Unavailable Unavailable LUCIANO, A VASYL MD Unavailable Unavailable LUCIANO, A VASYL MD Unavailable Unavailable LUCIANO, A VASYL MD Unavailable Unavailable LUCIANO, A VASYL MD Unavailable Unavailable LUCIANO, A VASYL MD Unavailable Unavailable LUCIANO, A VASYL MD Unavailable Unavailable LUCIANO, A VASYL MD Unavailable Unavailable Awilda WOLF MD Unavailable Unavailable Awilda WOLF MD Unavailable Unavailable Awilda WOLF MD Unavailable Unavailable Awilda WOLF MD Unavailable Unavailable Awilda WOLF MD Unavailable Unavailable Awilda WOLF MD Unavailable Unavailable Awilda WOLF MD Unavailable Unavailable Awilda WOLF MD Unavailable Unavailable Awilda WOLF MD Unavailable Unavailable Awilda WOLF MD Unavailable Unavailable Awilda WOLF MD Unavailable Unavailable Awilda WOLF MD Unavailable Unavailable Awilda WOLF MD Unavailable Unavailable Awilda WOLF MD Unavailable Unavailable Awilda WOLF MD Unavailable Unavailable LAMBERT, J GENO DPM PC Unavailable Unavailable LAMBERT, J GENO DPM PC Unavailable Unavailable LAMBERT, J GENO DPM PC Unavailable Unavailable LAMBERT, J GENO DPM PC Unavailable Unavailable LAMBERT, J GENO DPM PC Unavailable Unavailable LAMBERT, J GENO DPM PC Unavailable Unavailable LAMBERT, J GENO DPM PC Unavailable Unavailable LAMBERT, J GENO DPM PC Unavailable Unavailable LAMBERT, J GENO DPM PC Unavailable Unavailable LAMBERT, J GENO DPM PC Unavailable Unavailable LAMBERT, J GENO DPM PC Unavailable Unavailable LAMBERT, J GENO DPM PC Unavailable Unavailable LAMBERT, J GENO DPM PC Unavailable Unavailable LAMBERT, J GENO DPM PC Unavailable Unavailable LAMBERT, J GENO DPM PC Unavailable Unavailable LAMBERT, J GENO DPM PC Unavailable Unavailable LAMBERT, J GENO DPM PC Unavailable Unavailable LAMBERT, J GENO DPM PC Unavailable Unavailable LAMBERT, J GENO DPM PC Unavailable Unavailable LAMBERT, J GENO DPM PC Unavailable Unavailable LAMBERT, J GENO DPM PC Unavailable Unavailable LAMBERT, J GENO DPM PC Unavailable Unavailable LAMBERT, J GENO DPM PC Unavailable Unavailable LAMBERT, J GENO DPM PC Unavailable Unavailable LAMBERT, J GENO DPM PC Unavailable Unavailable Antonio, Nathalie PA Unavailable Unavailable Antonio, Nathalie PA Unavailable Unavailable Antonio, Nathalie PA Unavailable Unavailable Antonio, Nathalie PA Unavailable Unavailable Antonio, Nathalie PA Unavailable Unavailable Antonio, Nathalie PA Unavailable Unavailable Antonio, Nathalie PA Unavailable Unavailable Antonio, Nathalie PA Unavailable Unavailable Antonio, Nathalie PA Unavailable Unavailable Antonio, Nathalie PA Unavailable Unavailable Antonio, Nathalie PA Unavailable Unavailable Antonio, Nathalie PA Unavailable Unavailable Antonio, Nathalie PA Unavailable Unavailable Antonio, Nathalie PA Unavailable Unavailable Antonio, Nathalie PA Unavailable Unavailable Antonio, Nathalie PA Unavailable Unavailable Antonio, Nathalie PA Unavailable Unavailable Antonio, Nathalie PA Unavailable Unavailable Antonio, Nathalie PA Unavailable Unavailable Antonio, Nathalie PA Unavailable Unavailable Antonio, Nathalie PA Unavailable Unavailable Antonio, Nathalie PA Unavailable Unavailable Antonio, Nathalie PA Unavailable Unavailable Antonio, Nathalie PA Unavailable Unavailable Antonio, Nathalie PA Unavailable Unavailable Antonio, Nathalie PA Unavailable Unavailable Antonio, Nathalie PA Unavailable Unavailable Antonio, Nathalie PA Unavailable Unavailable Antonio, Nathalie PA Unavailable Unavailable Antonio, Nathalie PA Unavailable Unavailable Antonio, Nathalie PA Unavailable Unavailable Antonio, Nathalie PA Unavailable Unavailable Antonio, Nathalie PA Unavailable Unavailable Antonio, Nathalie PA Unavailable Unavailable Antonio, Nathalie PA Unavailable Unavailable Antonio, Nathalie PA Unavailable Unavailable Antonio, Nathalie PA Unavailable Unavailable Antonio, Nathalie PA Unavailable Unavailable Antonio, Nathalie PA Unavailable Unavailable Antonio, Nathalie PA Unavailable Unavailable Antonio, Nathalie PA Unavailable Unavailable Antonio, Nathalie PA Unavailable Unavailable Antonio, Nathalie PA Unavailable Unavailable CATARINO AMANUELAMADO Unavailable Unavailable Edda JOLLY MD Unavailable Unavailable Edda JOLLY MD Unavailable Unavailable Edda JOLLY MD Unavailable Unavailable Edda JOLLY MD Unavailable Unavailable Edda JOLLY MD Unavailable Unavailable Edda JOLLY MD Unavailable Unavailable Edda JOLLY MD Unavailable Unavailable Edda JOLLY MD Unavailable Unavailable Edda JOLLY MD Unavailable Unavailable Edda JOLLY MD Unavailable Unavailable Edda JOLLY MD Unavailable Unavailable Edda JOLLY MD Unavailable Unavailable Edda JOLLY MD Unavailable Unavailable Edda JOLLY MD Unavailable Unavailable Edda JOLLY MD Unavailable Unavailable Edda JOLLY MD Unavailable Unavailable Edda JOLLY MD Unavailable Unavailable Edda JOLLY MD Unavailable Unavailable Edda JOLLY MD Unavailable Unavailable Edda JOLLY MD Unavailable Unavailable Edda JOLLY MD Unavailable Unavailable Edda JOLLY MD Unavailable Unavailable Edda JOLLY MD Unavailable Unavailable Edda JOLLY MD Unavailable Unavailable Edda JOLLY MD Unavailable Unavailable Edda JOLLY MD Unavailable Unavailable Edda JOLLY MD Unavailable Unavailable Edda JOLLY MD Unavailable Unavailable Edda JOLLY MD Unavailable Unavailable Edda JOLLY MD Unavailable Unavailable Edda JOLLY MD Unavailable Unavailable Edda JOLLY MD Unavailable Unavailable Edda JOLLY MD Unavailable Unavailable Edda JOLLY MD Unavailable Unavailable SHANAEEdda MD Unavailable Unavailable SHANAEEdda MD Unavailable Unavailable SHANAEEdda MD Unavailable Unavailable SHANAE, Edda BUSTILLOS MD Unavailable Unavailable SHANAE, Edda BUSTILLOS MD Unavailable Unavailable SHANAE, Edda BUSTILLOS MD Unavailable Unavailable SHANAE, Edda BUSTILLOS MD Unavailable Unavailable SHANAEEdda MD Unavailable Unavailable SHANAE, Edda BUSTILLOS MD Unavailable Unavailable SHANAE, Edda BUSTILLOS MD Unavailable Unavailable SHANAE, Edda BUSTILLOS MD Unavailable Unavailable SHANAE, Edda BUSTILLOS MD Unavailable Unavailable SHANAE, Edda BUSTILLOS MD Unavailable Unavailable SHANAE, Edda BUSTILLOS MD Unavailable Unavailable SHANAE, Edda BUSTILLOS MD Unavailable Unavailable SHANAE, Edda BUSTILLOS MD Unavailable Unavailable SHANAE, Edda BUSTILLOS MD Unavailable Unavailable SHANAE, Edda BUSTILLOS MD Unavailable Unavailable SHANAE, Edda BUSTILLOS MD Unavailable Unavailable SHANAE, Edda BUSTILLOS MD Unavailable Unavailable SHANAE, Edda BUSTILLOS MD Unavailable Unavailable SHANAE, Edda BUSTILLOS MD Unavailable Unavailable SHANAE, Edda BUSTILLOS MD Unavailable Unavailable SHANAE, Edda BUSTILLOS MD Unavailable Unavailable SHANAE, Edda BUSTILLOS MD Unavailable Unavailable SHANAE, Edda BUSTILLOS MD Unavailable Unavailable SHANAE, Edda BUSTILLOS MD Unavailable Unavailable SHANAEEdda MD Unavailable Unavailable SHANAEEdda MD Unavailable Unavailable SHANAEEdda MD Unavailable Unavailable SHANAEEdda MD Unavailable Unavailable SHANAEEdda MD Unavailable Unavailable SHANAEEdda MD Unavailable Unavailable SHANAE, Edda BUSTILLOS MD Unavailable Unavailable SHANAEEdda MD Unavailable Unavailable SHANAEEdda MD Unavailable Unavailable SHANAEEdda MD Unavailable Unavailable SHANAEEdda MD Unavailable Unavailable SHANAEEdda MD Unavailable Unavailable SHANAEEdda MD Unavailable Unavailable SHANAEEdda MD Unavailable Unavailable María CHOPRA SAFETY PHYSICIAN Unavailable Unavailable María CHOPRA SAFETY PHYSICIAN Unavailable Unavailable María CHOPRA SAFETY PHYSICIAN Unavailable Unavailable María CHOPRA SAFETY PHYSICIAN Unavailable Unavailable María CHOPRA SAFETY PHYSICIAN Unavailable Unavailable María CHOPRA SAFETY PHYSICIAN Unavailable Unavailable María CHOPRA SAFETY PHYSICIAN Unavailable Unavailable María CHOPRA SAFETY PHYSICIAN Unavailable Unavailable María CHOPRA SAFETY PHYSICIAN Unavailable Unavailable María CHOPRA SAFETY PHYSICIAN Unavailable Unavailable María CHOPRA SAFETY PHYSICIAN Unavailable Unavailable CHOPRAMaría Stroud SAFETY PHYSICIAN Unavailable Unavailable CHOPRA, M ALESSIA SAFETY PHYSICIAN Unavailable Unavailable CHOPRA, M ALESSIA SAFETY PHYSICIAN Unavailable Unavailable CHOPRA, M ALESSIA SAFETY PHYSICIAN Unavailable Unavailable CHOPRA, M ALESSIA SAFETY PHYSICIAN Unavailable Unavailable CHOPRA, M ALESSIA SAFETY PHYSICIAN Unavailable Unavailable CHOPRA, M ALESSIA SAFETY PHYSICIAN Unavailable Unavailable CHOPRA, M ALESSIA SAFETY PHYSICIAN Unavailable Unavailable CHOPRA, M ALESSIA SAFETY PHYSICIAN Unavailable Unavailable CHOPRA, M ALESSIA SAFETY PHYSICIAN Unavailable Unavailable CHOPRA, M ALESSAI SAFETY PHYSICIAN Unavailable Unavailable CHOPRA, M ALESSIA SAFETY PHYSICIAN Unavailable Unavailable CHOPRA, M ALESSIA SAFETY PHYSICIAN Unavailable Unavailable CHOPRA, M ALESSIA SAFETY PHYSICIAN Unavailable Unavailable CHOPRA, M ALESSIA SAFETY PHYSICIAN Unavailable Unavailable CHOPRA, M ALESSIA SAFETY PHYSICIAN Unavailable Unavailable CHOPRA, M ALESSIA SAFETY PHYSICIAN Unavailable Unavailable CHOPRA, M ALESSIA SAFETY PHYSICIAN Unavailable Unavailable CHOPRA, M ALESSIA SAFETY PHYSICIAN Unavailable Unavailable CHOPRA, M ALESSIA SAFETY PHYSICIAN Unavailable Unavailable CHOPRA, M ALESSIA SAFETY PHYSICIAN Unavailable Unavailable CHOPRA, M ALESSIA SAFETY PHYSICIAN Unavailable Unavailable CHOPRA, M ALESSIA SAFETY PHYSICIAN Unavailable Unavailable CHOPRA, M ALESSIA SAFETY PHYSICIAN Unavailable Unavailable CHOPRA, M ALESSIA SAFETY PHYSICIAN Unavailable Unavailable CHOPRA, M ALESSIA SAFETY PHYSICIAN Unavailable Unavailable CHOPRA, M ALESSIA SAFETY PHYSICIAN Unavailable Unavailable CHOPRA, M ALESSIA SAFETY PHYSICIAN Unavailable Unavailable CHOPRA, M ALESSIA SAFETY PHYSICIAN Unavailable Unavailable CHOPRA, M ALESSIA SAFETY PHYSICIAN Unavailable Unavailable CHOPRA, M ALESSIA SAFETY PHYSICIAN Unavailable Unavailable CHOPRA, M ALESSIA SAFETY PHYSICIAN Unavailable Unavailable CHOPRA, M ALESSIA SAFETY PHYSICIAN Unavailable Unavailable CHOPRA, M ALESSIA SAFETY PHYSICIAN Unavailable Unavailable CHOPRA, M ALESSIA SAFETY PHYSICIAN Unavailable Unavailable CHOPRA, M ALESSIA SAFETY PHYSICIAN Unavailable Unavailable CHOPRA, M ALESSIA SAFETY PHYSICIAN Unavailable Unavailable CHOPRA, M ALESSIA SAFETY PHYSICIAN Unavailable Unavailable CHOPRA, M ALESSIA SAFETY PHYSICIAN Unavailable Unavailable CHOPRA, M ALESSAI SAFETY PHYSICIAN Unavailable Unavailable CHOPRA, M ALESSIA SAFETY PHYSICIAN Unavailable Unavailable CHOPRA, M ALESSIA SAFETY PHYSICIAN Unavailable Unavailable CHOPRA, M ALESSIA SAFETY PHYSICIAN Unavailable Unavailable CHOPRA, M ALESSIA SAFETY PHYSICIAN Unavailable Unavailable CHOPRA, M ALESSIA SAFETY PHYSICIAN Unavailable Unavailable CHOPRA, M ALESSIA SAFETY PHYSICIAN Unavailable Unavailable CHOPRA, M ALESSIA SAFETY PHYSICIAN Unavailable Unavailable Sweet, Gambee Lala PA-C Unavailable Unavailable Sweet, Gambee Lala PA-C Unavailable Unavailable Sweet, Gambee Lala PA-C Unavailable Unavailable Sweet, Gambee Lala PA-C Unavailable Unavailable Sweet, Gambee Lala PA-C Unavailable Unavailable Sweet, Gambee Lala PA-C Unavailable Unavailable Sweet, Gambee Lala PA-C Unavailable Unavailable Sweet, Gambee Lala PA-C Unavailable Unavailable Sweet, Gambee Lala PA-C Unavailable Unavailable Sweet, Gambee Lala PA-C Unavailable Unavailable Sweet, Gambee Lala PA-C Unavailable Unavailable Sweet, Gambee Lala PA-C Unavailable Unavailable Sweet, Gambee Lala PA-C Unavailable Unavailable Sweet, Gambee Lala PA-C Unavailable Unavailable Sweet, Gambee Lala PA-C Unavailable Unavailable Sweet, Gambee Lala PA-C Unavailable Unavailable Sweet, Gambee Lala PA-C Unavailable Unavailable Sweet, Gambee Lala PA-C Unavailable Unavailable Sweet, Gambee Lala PA-C Unavailable Unavailable Sweet, Gambee Lala PA-C Unavailable Unavailable Sweet, Gambee Lala PA-C Unavailable Unavailable Sweet, Gambee Lala PA-C Unavailable Unavailable Sweet, Gambee Lala PA-C Unavailable Unavailable Sweet, Gambee Lala PA-C Unavailable Unavailable Sweet, Gambee Lala PA-C Unavailable Unavailable Sweet, Gambee Lala PA-C Unavailable Unavailable Sweet, Gambee Lala PA-C Unavailable Unavailable Sweet, Gambee Lala PA-C Unavailable Unavailable Sweet, Gambee Lala PA-C Unavailable Unavailable Sweet, Gambee Lala PA-C Unavailable Unavailable Sweet, Gambee Lala PA-C Unavailable Unavailable Sweet, Gambee Lala PA-C Unavailable Unavailable Sweet, Gambee Lala PA-C Unavailable Unavailable Sweet, Gambee Lala PA-C Unavailable Unavailable Sweet, Gambee Lala PA-C Unavailable Unavailable Sweet, Gambee Lala PA-C Unavailable Unavailable Sweet, Gambee Lala PA-C Unavailable Unavailable Sweet, Gambee Lala PA-C Unavailable Unavailable Sweet, Gambee Lala PA-C Unavailable Unavailable Fish, J Delvis Unavailable Unavailable Fish, J Delvis Unavailable Unavailable Fish, J Delivs Unavailable Unavailable Fish, J Delvis Unavailable Unavailable Fish, J Delvis Unavailable Unavailable Fish, J Delvis Unavailable Unavailable Fish, J Delvis Unavailable Unavailable Fish, J Delvis Unavailable Unavailable Fish, J Delvis Unavailable Unavailable Fish, J Delvis Unavailable Unavailable Fish, J Delvis Unavailable Unavailable Fish, J Delvis Unavailable Unavailable Fish, J Delvis Unavailable Unavailable Fish, J Delvis Unavailable Unavailable Fish, J Delvis Unavailable Unavailable Fish, J Delvis Unavailable Unavailable Fish, J Delvis Unavailable Unavailable Fish, J Delvis Unavailable Unavailable Fish, J Delvis Unavailable Unavailable Fish, J Delvis Unavailable Unavailable Fish, J Delvis Unavailable Unavailable Fish, J Delvis Unavailable Unavailable Fish, J Delvis Unavailable Unavailable Fish, J Delvis Unavailable Unavailable Fish, J Delvis Unavailable Unavailable Fish, J Delvis Unavailable Unavailable Fish, J Delvis Unavailable Unavailable Fish, J Delvis Unavailable Unavailable Fish, J Delvis Unavailable Unavailable Fish, J Delvis Unavailable Unavailable Fish, J Delvis Unavailable Unavailable Fish, J Delvis Unavailable Unavailable Fish, J Delvis Unavailable Unavailable Fish, J Delvis Unavailable Unavailable Fish, J Delvis Unavailable Unavailable Fish, J Delvis Unavailable Unavailable Fish, J Delvis Unavailable Unavailable Fish, J Delvis Unavailable Unavailable Fish, J Delvis Unavailable Unavailable Fish, J Delvis Unavailable Unavailable Fish, J Delvis Unavailable Unavailable Fish, J Delvis Unavailable Unavailable Fish, J Delvis Unavailable Unavailable Fish, J Delvis Unavailable Unavailable Fish, J Delvis Unavailable Unavailable Fish, J Delvis Unavailable Unavailable Fish, J Delvis Unavailable Unavailable Fish, J Delvis Unavailable Unavailable Fish, J Delvis Unavailable Unavailable Fish, J Delvis Unavailable Unavailable Fish, J Delvis Unavailable Unavailable Fish, J Delvis Unavailable Unavailable Fish, J Delvis Unavailable Unavailable Fish, J Delvis Unavailable Unavailable Fish, J Delvis Unavailable Unavailable Fish, J Delvis Unavailable Unavailable Fish, J Delvis Unavailable Unavailable Fish, J Delvis Unavailable Unavailable Fish, J Delvis Unavailable Unavailable Fish, J Delvis Unavailable Unavailable Fish, J Delvis Unavailable Unavailable Fish, J Delvis Unavailable Unavailable Fish, J Delvis Unavailable Unavailable Fish, J Delvis Unavailable Unavailable Fish, J Delvis Unavailable Unavailable Fish, J Delvis Unavailable Unavailable Fish, J Delvis Unavailable Unavailable Fish, J Delvis Unavailable Unavailable Fish, J Delvis Unavailable Unavailable Fish, J Delvis Unavailable Unavailable Fish, J Delvis Unavailable Unavailable Fish, J Delvis Unavailable Unavailable Fish, J Delvis Unavailable Unavailable Fish, J Delvis Unavailable Unavailable Fish, J Delvis Unavailable Unavailable Fish, J Delvis Unavailable Unavailable Fish, J Delvis Unavailable Unavailable Fish, J Devlis Unavailable Unavailable Fish, J Delvis Unavailable Unavailable Fish, J Delvis Unavailable Unavailable Fish, J Delvis Unavailable Unavailable Fish, J Delvis Unavailable Unavailable Fish, J Delvis Unavailable Unavailable Fish, J Delvis Unavailable Unavailable Fish, J Delvis Unavailable Unavailable Juan A Hernandez MD Unavailable Unavailable Juan A Hernandez MD Unavailable Unavailable Juan A Hernandez MD Unavailable Unavailable Juan A Hernandez MD Unavailable Unavailable Juan A Hernandez MD Unavailable Unavailable Juan A Hernandez MD Unavailable Unavailable Juan A Hernandez MD Unavailable Unavailable Juan A Hernandez MD Unavailable Unavailable Juan A Hernandez MD Unavailable Unavailable Juan A Hernandez MD Unavailable Unavailable Juan A Hernandez MD Unavailable Unavailable Juan A Hernandez MD Unavailable Unavailable Juan A Hernandez MD Unavailable Unavailable Juan A Hernandez MD Unavailable Unavailable Juan A Hernandez MD Unavailable Unavailable Juan A Hernandez MD Unavailable Unavailable Juan A Hernandez MD Unavailable Unavailable Juan A Hernandez MD Unavailable Unavailable Juan A Hernandez MD Unavailable Unavailable Juan A Hernandez MD Unavailable Unavailable Juan A Hernandez MD Unavailable Unavailable Juan A Hernandez MD Unavailable Unavailable Juan A Hernandez MD Unavailable Unavailable Juan A Hernandez MD Unavailable Unavailable Juan A Hernandez MD Unavailable Unavailable Juan A Hernandez MD Unavailable Unavailable Juan A Hernandez MD Unavailable Unavailable Juan A Hernandez MD Unavailable Unavailable Juan A Hernandez MD Unavailable Unavailable Juan A Hernandez MD Unavailable Unavailable Juan A Hernandez MD Unavailable Unavailable Juan A Hernandez MD Unavailable Unavailable Juan A Hernandez MD Unavailable Unavailable Juan A Hernandez MD Unavailable Unavailable Juan A Hernandez MD Unavailable Unavailable Juan A Hernandez MD Unavailable Unavailable Juan A Hernandez MD Unavailable Unavailable Juan A Hernandez MD Unavailable Unavailable Juan A Hernandez MD Unavailable Unavailable Juan A Hernandez MD Unavailable Unavailable Juan A Hernandez MD Unavailable Unavailable Juan A Hernandez MD Unavailable Unavailable Juan A Hernandez MD Unavailable Unavailable Juan A Hernandez MD Unavailable Unavailable Juan A Hernandez MD Unavailable Unavailable Juan A Hernandez MD Unavailable Unavailable Juan A Hernandez MD Unavailable Unavailable Juan A Hernandez MD Unavailable Unavailable Juan A Hernandez MD Unavailable Unavailable Juan A Hernandez MD Unavailable Unavailable Juan A Hernandez MD Unavailable Unavailable Juan A Hernandez MD Unavailable Unavailable Juan A Hernandez MD Unavailable Unavailable Juan A Hernandez MD Unavailable Unavailable Juan A Hernandez MD Unavailable Unavailable Juan A Hernandez MD Unavailable Unavailable Juan A Hernandez MD Unavailable Unavailable Juan A Hernandez MD Unavailable Unavailable Juan A Hernandez MD Unavailable Unavailable Juan A Hernandez MD Unavailable Unavailable Juan A Hernandez MD Unavailable Unavailable Juan A Hernandez MD Unavailable Unavailable Juan A Hernandez MD Unavailable Unavailable Juan A Hernandez MD Unavailable Unavailable Juan A Hernandez MD Unavailable Unavailable Juan A Hernandez MD Unavailable Unavailable Juan A Hernandez MD Unavailable Unavailable Juan A Hernandez MD Unavailable Unavailable Juan A Hernandez MD Unavailable Unavailable Juan A Hernandez MD Unavailable Unavailable Juan A Hernandez MD Unavailable Unavailable Juan A Hernandez MD Unavailable Unavailable Juan A Hernandez MD Unavailable Unavailable Re-disclosure Warning The records that you are about to access may contain information from federally-assisted alcohol or drug abuse programs. If such information is present, then the following federally mandated warning applies: This information has been disclosed to you from records protected by federal confidentiality rules (42 CFR part 2). The federal rules prohibit you from making any further disclosure of this information unless further disclosure is expressly permitted by the written consent of the person to whom it pertains or as otherwise permitted by 42 CFR part 2. A general authorization for the release of medical or other information is NOT sufficient for this purpose. The Federal rules restrict any use of the information to criminally investigate or prosecute any alcohol or drug abuse patient.The records that you are about to access may contain highly sensitive health information, the redisclosure of which is protected by Article 27-F of the [facility] Public Health law. If you continue you may have access to information: Regarding HIV / AIDS; Provided by facilities licensed or operated by the [facility] Office of Mental Health; or Provided by the [facility] Office for People With Developmental Disabilities. If such information is present, then the following [facility] mandated warning applies: This information has been disclosed to you from confidential records which are protected by state law. State law prohibits you from making any further disclosure of this information without the specific written consent of the person to whom it pertains, or as otherwise permitted by law. Any unauthorized further disclosure in violation of state law may result in a fine or senior care sentence or both. A general authorization for the release of medical or other information is NOT sufficient authorization for further disc losure. Allergies and Adverse Reactions Type Description Substance Reaction Status Data Source(s ) CLASS CONTRAST MEDIA, IODINE RELATED CONTRAST MEDIA, IODINE RELA SANDER [facility] Family History Family Member Name Family Member Gender Family Member Status Date o f Status Description Data Source(s) Unknown Male Problem [facility] ([facility] Unknown Unknown Problem [facility] ([facility] Unknown Female Problem [facility] ([facility] ) Encounters Encounter Providers Location Date Indications Data Source(s ) Outpatient Attender: Delvis Veronica [place] [facility] 05/22/2020 12:30:0 0 PM EST [facility] ([facility] Office Visit Attender: Nathalie CASTRO Main Office 05/10/2020 12:15:00 PM EST [facility] ([facility]) Outpatient Attender: Gabriella Hernandez MDReferrer: Gabriella cooper MD MOB-MOB.PAT 04/26/2020 12:51:28 PM EST - 04/26/2020 02:30:19 PM [facility] Outpatient Referrer: Gabriella ANDREWS.PAT 04/26 11:13:22 AM EST - 04/26/2020 11:13:36 AM EST [facility] Attender: Gabriella Hernandez MDAdmitter: Gabriella cooper MD ES1-OR 04/25/2020 10:38:43 AM EST - 05/01/2020 07:03:00 PM [facility] Patient discharged. Outpatient Attender: Gabriella Hernandez MD Main Office 04/18/2020 02:00:00 PM EDT [facility] ([facility]) Outpatient Attender: GENO VERDIN DPM PCConsultant: Mary Veronica 03/27/2020 01:50:00 PM EDT [facility] GENO VERDIN DPM PCConsultant: Mary Veronica 03/06/2020 09:48:00 AM EDT - 03/06/2020 09:48:00 AM [facility] Outpatient Attender: Delvis Veronica [place] [facility] 02/21/2020 01:00:0 0 PM EDT MED[facility] ([facility] Outpatient Attender: GENO VERDIN DPM PCConsultant: Calixtokarina chu Jeremías 02/14/2020 09:38:00 AM EDT - 02/14/2020 09:38:00 AM [facility] Outpatient Attender: VASYL Montiel/ A.M.P. Urology 02/01/2020 01:00:00 PM EDT [facility] ([facility]) Outpatient Attender: GENO VERDIN DPM PCConsultant: Calixtokarina chu Jeremías 01/25/2020 08:41:00 AM EDT - 01/25/2020 08:41:00 AM [facility] Outpatient Attender: GENO VERDIN DPM PCConsultant: Mary Veronica 01/03/2020 01:51:00 PM EDT - 01/03/2020 01:51:00 PM EDT [facility] Outpatient Attender: APOLLO JOLLY MD BF-BF 12/20/2019 07:29:14 AM EDT [facility] Outpatient Attender: GENO VERDIN DPM PCConsultant: Mary Veronica 12/13/2019 01:33:00 PM EDT - 12/13/2019 01:33:00 PM EDT [facility] Outpatient Attender: GENO VERDIN DPM PCConsultant: Mary Veronica 11/29/2019 10:12:00 AM EDT - 11/29/2019 10:12:00 AM EDT [facility] Outpatient Attender: AUDIE MENDEZ MD [place] [facility] 09/2019 01:00:00 PM EDT [facility] ([facility] Outpatient Attender: APOLLO JOLLY MD BF-BF 11/24/2019 07:45:57 AM EDT [facility] Outpatient Referrer: Gabriella Hernandez MD 11/18/2019 10:57:50 AM EDT [facility] Outpatient Attender: Gabriella Hernandez MD Main Office 11/18/2019 09:00:00 AM EDT [facility] ([facility]) Outpatient Attender: Delvis Veronica [place] [facility] 11/15/2019 01:30:0 0 PM EDT [facility] ([facility] Outpatient Attender: ALESSIA CHOPRA NP [place] [facility] 11/07 02:00:00 PM EDT [facility] ([facility] Outpatient Referrer: CIELO HERNANDEZ 11/02/2019 11:21:00 AM EDT [facility] Outpatient Referrer: CIELO HERNANDEZ 11/02/2019 11:20:00 AM EDT [facility] Outpatient Referrer: CIELO HERNANDEZ 10/27/2019 03:52:00 PM EDT [facility] Outpatient Attender: Lala Figueroa PA-C BF-BF.[facility] 12:00:00 AM EDT - 09/06/2019 03:41:26 PM EDT [facility] Outpatient Attender: John Cassandra MDConsultant: Delvis Kemar almeida 08/16/2019 11:40:00 AM EST - 08/16/2019 12:40:00 PM EST [facility] Outpatient Attender: Gabriella Hernandez MD Main Office 08/05/2019 10:00:00 AM EST [facility] ([facility]) Immunizations Vaccine Date Status Description Data Source(s) New in 2012. IIV4 05/22/2020 12:51:00 PM EST completed [facility] ([facility] Medications Medication Brand Name Start Date Product Form Dose Route Admi nistrative Instructions Pharmacy Instructions Status Indications Reaction Description Data Source(s) Pentoxifylline 400 MG Extended Release Oral Tablet Pentoxify lline ER 03/06/2020 12:00:00 AM EDT ORAL active M EDENT ([facility]) Mupirocin 0.02 MG/MG Topical Ointment Mupirocin 02/22/2020 12:00:00 AM EDT completed [facility] Rosuvastatin calcium 10 MG Oral Tablet rosuvastatin (C RESTOR) 10 MG tablet rosuvastatin (CRESTOR) 10 MG tablet 01/11/2020 12:00:00 AM EDT active TAKE 1 TABLET BY MOUTH THREE TIMES A WEE K. THURSDAY, THURSDAY, AND THURSDAY. [facility] Pentoxifylline 400 MG Extended Release Oral Tablet Pentoxify lline ER 11/29/2019 12:00:00 AM EDT ORAL completed [facility] ([facility]) Doxycycline Monohydrate 100 MG Oral Capsule Doxycycline [place] hydrate 11/08/2019 12:00:00 AM EDT ORAL completed [facility] ([facility] mometasone furoate 1 MG/ML Topical Cream Mometasone Furoate 11/08/2019 12:00:00 AM EDT active [facility] ([facility] Eucrisa Eucrisa 11/08/2019 12:00:00 AM EDT complet ed [facility] ([facility] apixaban 2.5 MG Oral Tablet [Eliquis] Eliquis 10/25/2019 12:00:00 AM EDT ORAL completed [facility] ([facility]) 24 HR metoprolol succinate 50 MG Extende d Release Oral Tablet metoprolol succinate (TOPROL-XL) 50 MG 24 hr tablet metoprolol succinate (TOPROL-XL) 50 MG 24 hr tablet 09/19/2019 12:00:00 AM EDT 50 mg Oral abort ed Take 1 tablet (50 mg total) by mouth nightly [facility] clopidogrel 75 MG Oral Tablet clopidogrel (PLAVIX) 75 MG tablet clopidogrel (PLAVIX) 75 MG tablet 08/18/2019 12:00:00 AM EST 75 mg Oral active Take 1 tablet (75 mg total) by mouth daily [facility] 24 HR metoprolol succinate 25 MG Extende d Release Oral Tablet metoprolol succinate (TOPROL-XL) 25 MG 24 hr tablet metoprolol succinate (TOPROL-XL) 25 MG 24 hr tablet 03/17/2019 12:00:00 AM EDT 25 mg Oral abort ed Take 1 tablet (25 mg total) by mouth daily [facility] Spironolactone 25 MG Oral Tablet spironolactone (ALDAC TONE) 25 MG tablet spironolactone (ALDACTONE) 25 MG tablet 01/17/2019 12:00:00 AM EDT 25 mg Oral aborted Take 1 tablet (25 mg tota l) by mouth daily [facility] Finasteride 5 MG Oral Tablet finasteride (PROSCAR) 5 M G tablet finasteride (PROSCAR) 5 MG tablet 5 mg Oral aborted Ta ke 5 mg by mouth daily [facility] Ferrous Gluconate 239 (27 Fe) MG TABS 29901-97318 Oral aborted Take by mouth daily [facility] Calcitriol 0.30031 MG Oral Capsule calcitriol (ROCALTR OL) 0.25 MCG capsule calcitriol (ROCALTROL) 0.25 MCG capsule 0.25 ug Oral aborted Take 0.25 mcg by mouth daily [facility] Insurance Providers Payer name Policy type / Coverage type Policy ID Covered alliance party ID Covered alliance party's relationship to curry Policy Curry Plan Information MEDICARE [id number] SP [id number] [employer] HE[employer] C[employer] OPTIONS [id number] SP [id number] INSURANCE COVID-19 [id number] MEDICARE [id number] INSURANCE COVID-19 COVID Mackenzie C OVID MEDICARE [id number] Mackenzie [id number] UHC [id number] Mackenzie [id number] AARP HE[employer] CARE OPTIONS [id number] 18 [id number] MEDICARE PART A [place] [id number] 18 [id number] MEDICARE C [id number] S [id number] AARP O [id number] S [id number] MEDICARE PART A -O/P [id number] 18 [id number] AARP HEALTH CARE OPTIONS-O/P [id number] 18 [id number] MEDICARE [id number] Mackenzie [id number] A Medicare Part B Medicare Primary [id number] Self [id number] [employer] Healthcare Options Medigap Part B [id number] Self [id number] Medicare Part B Medicare Primary [id number] Self [id number] [employer]arp Medigap Part B [id number] Self [id number] Medicare Medicare Primary [id number] Self [id number] Aarp Supplemental Plan Medigap Part B [id number] Self [id number] Medicare Medicare Primary [id number] Self [id number] Aarp Supplemental Plan Medigap Part B [id number] Self [id number] Medicare Medicare Primary [id number] Self 11 [id number] [employer] Medigap Part B [id number] Self [id number] Medicare Medicare Primary [id number] Self [id number] MEDICARE C [id number] S [id number] A [employer] Medigap Part B Self Medicare Medicare Primary Self [employer] Medigap Part B [place] Primary Self MEDICARE -O/P [id number] 18 [id number] MEDICARE [id number] SP [id number] A Medicare Medicare Primary Self [employer] [facility] Medigap Part B Self MEDICARE M [id number] S [id number] A [facility] O [id number] S [id number] Problems, Conditions, and Diagnoses Code Display Name Description Problem Type Effective Dates Data Source(s) 917967701 Renal dialysis Renal dialysis Problem 05/22/2020 12:00: 00 AM EST [facility] ([facility] 86341660 Ulcer of foot Ulcer of foot Problem 11/29/2019 12:00:00 AM EDT [facility] ([facility]) 46769525 Pain in limb Pain in limb Problem 11/29/2019 12:00:00 A M EDT [facility] ([facility]) 60150800 Atherosclerosis of arteries of the extre mities Atherosclerosis of arteries of the extremities Problem 11/29/2019 12:00:00 AM EDT MEDEN T (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 Non-pressure chronic ulcer of other part of unspecified foot with unspecified severity Diagnosis 03/27/2020 01:50:00 PM EDT [facility] A11428 Pain in left foot Pain in left foot Diagnosis 03/27/2020 01:50:00 PM EDT [facility] D82623 Pain in right foot Pain in right foot Diagnosis 11/2019 01:50:00 PM EDT [facility] 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 Diagnosis 03/27/2020 01:50: 00 PM EDT [facility] R41107 Unspecified atherosclerosis of sun'[place] arteries of extremities, bilateral legs Unspecified atherosclerosis of [place] ar teries of extremities, bilateral legs Diagnosis 03/27/2020 01:50:00 PM EDT [facility] E78.5 Hyperlipidemia, unspecified Hyperlipidemia, unspecifie d Diagnosis 09/06/2019 03:10:29 PM EDT [facility] I10 Essential (primary) hypertension Essential (primary) h ypertension Diagnosis 09/06/2019 03:10:29 PM EDT [facility] 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 Atherosclerotic heart disease of sun'aq Diagnosis 09/06/2019 03:10:29 PM EDT [facility] R918 Other nonspecific abnormal finding of bisi ng field Other nonspecific abnormal finding of lung field Diagnosis 08/16/2019 11:40:00 AM [facility] I517 Cardiomegaly Cardiomegaly Diagnosis 08/16/2019 11:40:00 A M [facility] R0602 Shortness of breath Shortness of breath Diagnosis 0 08/16/2019 11:40:00 AM [facility] Surgeries/Procedures Procedure Description Date Indications Data Source(s) Capillary Blood Collection Finger, Heel, Ear Stick 05/22/2020 12:00:00 AM ANDREA JAMES ([facility] ) Revise Arteriovenous Fistula 05/01/2020 12:00:00 AM ADALBERTO JAMES ([facility]) ECG ROUTINE ECG W/LEAST 12 LDS TRCG ONLY W/O I&R ECG 12-LEAD Routine 04/26/2020 2:25 PM EST End stage renal disease 04/26/2020 07:25:08 PM EST End stage debby al disease [facility] End stage renal disease BLOOD COUNT COMPLETE AUTOMATED CBC Routine 0 2:10 PM EST End stage renal disease 04/26/2020 07:10:00 PM EST End stage debby al disease [facility] End stage renal disease HEMOGLOBIN GLYCOSYLATED A1C HEMOGLOBIN A1C Routine 04/26/2020 2:10 PM EST End stage renal disease 04/26/2020 07:10:00 PM EST End stage debby al disease [facility] End stage renal disease BASIC METABOLIC PANEL CALCIUM TOTAL BASIC METABOLIC PANEL Routi ne 04/26/2020 2:10 PM EST End stage renal disease 04/26/2020 07:10:00 PM EST End stage debby al disease [facility] End stage renal disease Capillary Blood Collection Finger, Heel, Ear Stick 02/21/2020 12:00:00 AM EDT [facility] ([facility] ) CYSTOURETHROSCOPY 02/01/2020 12:00:00 AM EDT [facility] ([facility]) US RETROPERITONEAL REAL TIME W/IMAGE LIMITED 0 12:00:00 AM EDT [facility] ([facility]) US RETROPERITONEAL REAL TIME W/IMAGE COMPLETE 02/01/20 20 12:00:00 AM EDT [facility] ([facility]) Duplex Scan Extracranial Arteries, Follow-Up Or Limited Stud y 01/17/2020 12:00:00 AM EDT [facility] ([facility]) Duplex Scan Extracranial Arteries, Follow-Up Or Limited Stud y 01/17/2020 12:00:00 AM EDT [facility] ([facility]) Duplex Scan Aorta/Inf Vena Cava/Iliac Vasc/Bypass GRFT LTD/F ol-Up 01/17/2020 12:00:00 AM EDT [facility] ([facility]) DUPLEX SCAN EXTRACRANIAL ART COMPL BI STUDY 01/17/2020 12:00:00 AM EDT [facility] ([facility]) Results ID Date Data Source [id number] 05/22/2020 02:17:00 PM EST [facility] ([facility] Name Value Range Interpretation Code Description Data Sil rce(s) Supporting Document(s) Hemoglobin A1c/Hemoglobin.total in Blood 4.9 % 4.40-6.10 [facility] ([facility] ID Date Data Source [id number] 05/04/2020 07:14:54 AM EST [facility]FORMATIONPatient MRN Name Date of Age Gend*PT [id number] Kell Wallis Jr. 1940 79 years M SDCPT Location Admission Date/Time [facility]44 --- --- EPI ID CSN Admitting Provider [id number] Gabriella Hernandez MD([id number]) [place] [address] OPERATIVE REPORT OPNAME: SHAN WARDHeladio KELL Paz#: [id number] #: [id number] ADMISSION DATE: 05/01/2020DOB: 1940 SEX: M PT TYPE: H SURACCT #: [id number] CARE PHYSICIAN: DELVIS MIDDLETONTE OF OPERATION: 05/01/2020PREOPERATIVE DIAGNOSIS:Aneurysmal dilation, left arm arteriovenous fistula.POSTOPERATIVE DIAGNOSIS:Aneurysmal dilation, left arm arteriovenous fistula.PROCEDURE PERFORMED:Revision of left arm AV fistula with primary repair of aneurysm.SURGEON:Gabriella Hernandez MD.PIPE FITTER MAINTENANCE:GLORIA Munoz. Please note that there was no qualified residentavailable for the procedure.ANESTHESIA:Local plus MAC.ESTIMATED BLOOD LOSS:100 mL.COMPLICATIONS:None.SPECIMEN:None.IMPLANTS:None.INDICATIONS:This is a 79-year-old gentleman with end-stage renal failure who has a leftarm AV fistula with aneurysmal dilation and thinning of the skin at thelevel of the wrist and is here for revision.DESCRIPTION OF PROCEDURE:After explaining the procedure to the patient, taking written consent, thepatient was taken to the operating room. Patient was placed under generalanesthesia by the Anesthesia staff. Ultrasound was done by me to niki thearea of the previously present stent. 1% lidocaine and 0.5% Marcaine wasused to anesthetize the wrist area. The old incision was opened up withcircumferential dissection and thinned out of the aneurysm was done.Manual compression was kept on both sides. Care was taken not to compressthe stent and a running 3-0 Prolene was used to repair the area of theaneurysm and a suture placed in the distal part of the fistula. Anelliptical removal of the skin was done, which was all thinned out. Afterconfirming hemostasis, there was still a very good thrill present in thefistula. Wound was closed. Skin was closed using vertical mattress 3-0nylon. Dressing was applied. Patient was woken up and brought to recoveryroom in stable condition with unchanged neurovascular exam. I was presentthroughout the case.GABRIELLA HERNANDEZ, KACY/BHUPINDER Job #: [id number] DOC #: [id number]: [facility] Name Value Range Interpretation Code Description Data Sil rce(s) Supporting Document(s) ID Date Data Source [id number] 05/01/2020 05:39:12 PM EST [facility] Name Value Range Interpretation Code Description Data Sil rce(s) Supporting Document(s) POC NOVA GLU 86 mg/dL (70-99) [facility] [place] PERFORMED BY [facility] ID Date Data Source [id number] 05/01/2020 04:08:42 PM EST [facility] NT INFORMATIONPatient MRN Name Date of Age Gend*PT [id number] Kell Wallis Jr. 1940 79 years M SDCPT Location Admission Date/Time [facility] --- Gabriella Hernandez MD([id number]) EPI ID CSN Admitting Provider [id number] Gabriella Hernandez MD([id number])H&P reviewed. The patient was examined and there are no changes to the H&P.Gabriella Hernandez MD4:08 PM Name Value Range Interpretation Code Description Data Sil rce(s) Supporting Document(s) ID Date Data Source [id number] 05/01/2020 01:33:16 PM EST [facility] Name Value Range Interpretation Code Description Data Sil rce(s) Supporting Document(s) POC GLU 62 MG/DL (70-99) L [facility] PERFORMED BY [facility] ID Date Data Source [id number] 05/01/2020 01:33:16 PM EST [facility] Name Value Range Interpretation Code Description Data Sil rce(s) Supporting Document(s) POC POTASSIUM 4.5 MMOL/L (3.6-5.2) [facility] BY [facility] ID Date Data Source [id number] 05/01/2020 01:33:16 PM EST [facility] Name Value Range Interpretation Code Description Data Sil rce(s) Supporting Document(s) POC HCT 32 % (41.0-53.0) L [facility] ID Date Data Source [id number] 04/26/2020 02:29:42 PM EST [facility] Name Value Range Interpretation Code Description Data Sil rce(s) Supporting Document(s) EKG [facility] [id number] jb2 [file] SAFETY PHYSICIAN/[id number]07XR6H [file] MR+manager golf/J3qZbf77Vjcs1M7nL9bFG6voP+t9Wap4bBroCOL4YWkhU+2nzY3U//cNY3E+/MYZc+hzi1QQf [file] pxZ9u6VJQzQLqmGG9gouOdGSUnErghOc8irCI6IOHiGbdFOv7Iw8TgqsA3ewGiAkEzGDe2UkAoYP2Q ID Date Data Source [id number] 04/26/2020 07:31:57 PM EST [facility] Name Value Range Interpretation Code Description Data Sil rce(s) Supporting Document(s) HEMOGLOBIN A1C @ 5.3 % (4.0-6.0) [facility] Performed using Siemens Dover immunoassa y.Care must be taken when interpreting VbE9njtmspgf in patients with a hemoglobin variantor decreased erythrocyte lifespan. Values 5.7 - 6.4% suggest prediabetes.Values >=6.5% are diagnostic for diabetes.REFERENCE: DIABETES CARE 2018: 41(S13-S27). EST AVERAGE GLUCOSE 105 mg/dL [facility] ID Date Data Source [id number] 04/26/2020 07:29:28 PM EST [facility] Name Value Range Interpretation Code Description Data Sil rce(s) Supporting Document(s) SODIUM 140 mmol/L (136-145) [facility] POTASSIUM 5.6 mmol/L (3.6-5.2) H [facility] CHLORIDE 100 mmol/L (100-108) [facility] CO2 30 mmol/L (22-31) [facility] ANION GAP 10 mmol/L (7-16) [facility] UREA NITROGEN 65 mg/dL (7-24) H [facility] CREATININE 7.82 mg/dL (0.80-1.30) HH [facility] RESULT(S) CALLED TO AND READ BACK BYDR Masoud MARES AT [phone] ON [id number] [address] [address]. BUN/CREAT RATIO 8.3 RATIO (10.0-20.0) L [facility] GLUCOSE 82 mg/dL (70-99) [facility] CALCIUM 9.4 mg/dL (8.4-10.2) [facility] GFR 7 ml/min/1.73m2 (>59) L [facility] GFR ( AMER) 8 ml/min/1.73m2 (>59) L [facility] GFR INTERPRETATION [facility] --NORMAL KIDNEY FUNCTION OR MILD DISEASE - GFR >OR= 60CHRONIC KIDNEY DISEASE - GFR 15 - 59RENAL FAILURE - GFR <15 Est. GFR calculation based on the MDRDstudy equation, which assumes a steadystate for creatinine. Est. GFR should notbe used for medication dosing. ID Date Data Source [id number] 04/26/2020 06:36:02 PM EST [facility] Name Value Range Interpretation Code Description Data Sil rce(s) Supporting Document(s) WBC 6.6 10*3/uL (4.1-11.0) [facility] RBC 3.35 10*6/uL (4.60-6.10) L [facility] HGB 11.0 g/dL (13.5-18.0) L [facility] HCT 33.7 % (41.0-53.0) L [facility] MCV 100.6 fL (80.0-95.0) H [facility] MCH 32.9 pg (27.0-32.0) H [facility] MCHC 32.7 g/dL (32.0-36.0) [facility] RDW 17.5 % (10.5-14.5) H [facility] PLT 94 10*3/uL (150-450) L [facility] MPV 9.6 fL (7.1-10.7) [facility] ID Date Data Source [id number] 04/26/2020 02:07:57 PM EST [facility]PAT[facility] NT INFORMATIONPatient MRN Name Date of Age Gend*PT [id number] Kell Wallis Jr. 1940 79 years M OPPT Location Admission Date/Time Visit ID Attending Provider --- --- --- Gabriella Hernandez MD([id number]) EPI ID CSN Admitting Provider [id number] ---OUTPATIENT / OBSERVATIONAL SURGICAL OR INVASIVE PROCEDUREName: Kell Wallis Jr. : 1940 Sex: male Care Provider: DELVIS VERONICA [facility] Physician: Dr. Hernandez.HISTORY OF PRESENT ILLNESS: 79 years old white male with a history of end-stagerenal disease followed by his vulcanizer rubber plate, Dr. Mullen. Patient had left AVfistula insertion in 2014. He states fistula has been enlarging. Patient metwith Dr. Hernandez, options were discussed, and he has now elected to undergosurgical intervention.PAST MEDICAL HISTORY:Past Medical History:Diagnosis Date AAA (abdominal aortic aneurysm) s/p EVAR 01/2014 Dr Espinosa Coronary artery disease Followed by Dr Jolly Diabetes mellitus previously documented patient denies End stage renal disease Dialysis Mondays and Fridays only. Followed by Dr Mullen Gout Hyperlipidemia Hypertension Myocardial infarction 2000, 2001 Peripheral vascular disease Stroke 2011PA SURGICAL HISTORY:Past Surgical History:Procedure Laterality Date ABDOMINAL AORTIC ANEURYSM REPAIR, ENDOVASCULAR N/A 01/31/2014 Procedure: REPAIR ANEURYSM ENDOVASCULAR ABDOMINAL AORTA/ILIAC ARTERY ;Surgeon: Giuseppe Espinosa MD; Location: [facility]; Service: Vascular;Laterality: N/A; AV FISTULA PLACEMENT Left 02/19/2015 Procedure: INSERT ARTERIAL VENOUS FISTULA UPPER EXTREMITY LEFT ; Surgeon:Gabriella Hernandez MD; Location: [facility]; Service: Vascular; Laterality:Left; CORONARY ANGIOPLASTY WITH STENT PLACEMENT 06/2019 and previous to CABG CORONARY ARTERY BYPASS GRAFT 03/17/2008 Endov[facility]culare repair AAA 01/31/2014 Dr EspinosaALLERGIES:AllergiesAllergen Reactions Iodinated Diagnostic Agents Other (See Comments) Kidney functionMEDICATIONS:Current Outpatient Medications on File Prior to VisitMedication Sig Dispense Refill aspirin EC 81 MG EC tablet Take 81 mg by mouth nightly clopidogrel (PLAVIX) 75 MG tablet Take 1 tablet (75 mg total) by mouth daily90 tablet 3 lidocaine-prilocaine (EMLA) cream Apply 1 application topically as needed (fordialysis) metoprolol succinate (TOPROL-XL) 25 MG 24 hr tablet Take 25 mg by mouth 2(two) times a day pentoxifylline (TRENTAL) 400 MG CR tablet Take 400 mg by mouth 2 (two) times aday rosuvastatin (CRESTOR) 10 MG tablet TAKE 1 TABLET BY MOUTH THREE TIMES A WEEK.THURSDAY, THURSDAY, AND THURSDAY. (Patient taking differently: Take 10 mg by mouth3 (three) times a week on Thursday, Thursday, and Thursday) 38 tablet 3 sevelamer (RENVELA) 800 MG tablet Take 2,400 mg by mouth 2 (two) times a day vitamin D, Ergocalciferol, 1.25 MG (03959 UT) CAPS Take 1 capsule by mouthonce a week on Thursday [DISCONTINUED] calcitriol (ROCALTROL) 0.25 MCG capsule Take 0.25 mcg by mouthdaily [DISCONTINUED] Ferrous Gluconate 239 (27 Fe) MG TABS Take by mouth daily [DISCONTINUED] finasteride (PROSCAR) 5 MG tablet Take 5 mg by mouth daily [DISCONTINUED] metoprolol succinate (TOPROL-XL) 25 MG 24 hr tablet Take 1tablet (25 mg total) by mouth daily 90 tablet 3 [DISCONTINUED] metoprolol succinate (TOPROL-XL) 50 MG 24 hr tablet Take 1tablet (50 mg total) by mouth nightly 90 tablet 3 [DISCONTINUED] spironolactone (ALDACTONE) 25 MG tablet Take 1 tablet (25 mgtotal) by mouth daily 90 tablet 3No current facility-administered medications on file prior to visit.Social HistoryTobacco Use Smoking status: Never Smoker Smokeless tobacco: Never UsedSubstance Use Topics Alcohol use: Yes Comment: 1/year Drug use: NoFamily HistoryProblem Relation Age of Onset Malig Hyperthermia Neg HxREVIEW OF SYSTEMS:Respiratory: Denies any shortness of breath, cough, yellow sputum production orwheezing.Cardiovascular: Denies any chest pain, pressure or tightness. Denies anyparoxysmal nocturnal dyspnea or orthopnea.Musculoskeletal: Uses a cane for ambulation. Using wheelchair today.GI: Denies nausea, vomiting, diarrhea, constipation or melena.Neurologic: Denies any numbness, tingling, tremors or syncope.Vascular: Reports bilateral lower extremity edema. Denies claudication.PHYSICAL EXAM:GENERAL: He is a 79 years old, pleasant white male, in no acute distress at timeof examination. Vitals on arrival to the office are BP 131/69 (BP Location:Right upper arm, Patient Position: Sitting) | Pulse 62 | Ht 1.778 m (5' 10")| Wt 88.5 kg (195 lb) | SpO2 97% | BMI 27.98 kg/m Body mass index is 27.98kg/m ..Skin is pink, warm, and dry.NECK: He has a grade 3 airway. Neck is supple, midline, without cervicaladenopathy. No thyromegaly. No carotid bruits.MENTAL / NEUROLOGICAL STATUS: [id number]: Clear to auscultation. No wheezes, rhonchi or crackles.HEART: Rate rhythm regular. S1, S2. No murmur, rub or gallop.ABDOMEN: Bowel sounds positive times four. Soft, non tender. No reboundtenderness. No hepatosplenomegaly. Negative CVAT.EXTREMITIES: Pulses are diminished. +1 edema.OPERATIVE SITE: Without rash.CODE STATUS: Full Code per the patient.Steroid use: He denies any oral steroid therapy for three weeks or greaterwithin the last 3 months.Anesthesia complications: [facility] Fra[facility] :: 6/10 Moderately Frail (need help with all outsideactivities and with keeping house. Inside, they often have problems with stairsand need help with bathing and might need minimal assistance (cuing, standby)with dressing).Stop Bang Questionnaire - Total Score:STOP-Bang Total Score: 3ASSESSMENT: Primary Diagnosis/Indication: End-stage renal disease.PLAN: Procedure: Revision or removal dialysis arteriovenous fistula upperextremity left.04/26/2020 2:07 PMSaba Vanessa document or parts of this document, were dictated using [employer] speaking software. A reasonable attempt at proofreading has beenmade to minimize errors. Please call with any questions or corrections.* Name Value Range Interpretation Code Description Data Sil rce(s) Supporting Document(s) ID Date Data Source [id number] 04/26/2020 11:00:00 AM EST [facility] Name Value Range Interpretation Code Description Data [facility] rce(s) Supporting Document(s) SARS coronavirus 2 RNA [facility] This lab was ordered by [facility] and reported by [facility]. ID Date Data Source [id number] 04/27/2020 12:09:22 PM EST [facility] Name Value Range Interpretation Code Description Data [facility] rce(s) Supporting Document(s) SARS-COV-2 TOSIN [facility] Not DetectedReference range: Not Detecte d Testing was performed using the rita(R) SARS-CoV-2 test. This nucleic acid amplification test was developed and its performance characteristics determined by [facility]. Nucleic acid amplification tests include PCR and TMA. This test has not been FDA cleared or approved. This test has been authorized by FDA under an Emergency Use Authorization (EUA). This test is only authorized for the duration of time the declaration that circumstances exist justifying the authorization of the emergency use of in vitro diagnostic tests for detection of SARS-CoV-2 virus and/or diagnosis of COVID-19 infection under section 564(b)(1) of the Act, 21 U.S.C. 360bbb-3(b) (1), unless the authorization is terminated or revoked sooner. When diagnostic testing is negative, the possibility of a false negative result should be considered in the context of a patient's recent exposures and the presence of clinical signs and symptoms consistent with COVID-19. An individual without symptoms of COVID- 19 and who is not shedding SARS-CoV-2 virus would expect to have a negative (not detected) result in this assay. Performed At: [facility] [address] [id number] Dami Meredith MD Ph:[phone] ID Date Data Source [id number] 02/21/2020 01:37:00 PM EDT [facility] ([facility] Name Value Range Interpretation Code Description Data Sil rce(s) Supporting Document(s) Hemoglobin A1c/Hemoglobin.total in Blood 5.3 % 4.40-6.10 [facility] ([facility] ID Date Data Source [id number] 01/17/2020 12:53:00 PM EDT [facility] ([facility]) Name Value Range Interpretation Code Description Data Sil rce(s) Supporting Document(s) Abdominal Aortic Aneurysm Ultrasound Laboratory test result [facility] ([facility]) Carotid Ultrasound Bilateral Laboratory test result [facility] ([facility]) ID Date Data Source [id number] 12/20/2019 10:39:04 AM EDT [facility]PAT[facility] NT INFORMATIONPatient MRN Name Date of Age Gend*PT [id number] Shan Kell Bañuelos Jr. 1940 79 years M ---PT Location Admission Date/Time Visit ID Attending Provider --- --- --- --- EPI ID CSN Admitting Provider [id number] ---Cardiology History and PhysicalName: Kell Wallis Jr. Gender: maleDate of : 1940 Age: 79 yearsPrimary Care Provider / Referring Physician: DELVIS VERONICA[facility] [place] Telemedicine VisitPatient was identified by name and date of .Verbal consent was obtained from the patient for this telemedicine visit.Patient is aware of the risks, limitations, and benefits of a telemedicinevisit.This telemedicine assessment was conducted remotely with the assistance ofZENN Motorication technology: Telephone Only Codes 57703: 21 -30 minutes of medicaldiscussion: Telephone OnlyCurrent HistoryChief Complaint: This is a Telemedicine visitHPI:This patient is a 79 years male with the following updated problem list:1. Known coronary disease with multiple stents and ultimately CABG x3 [id number]. Cardiac catheterization 07/18/2019 PCI/CHAI LAD. EF 40%.2. Chronic kidney disease followed by Dr. Mullen. On dialysis3. Status post aortic endovascular repair for an aneurysm in 2013- Dr Espinosa4. Diabetes mellitus5. Hypertension6. HyperlipidemiaReview of Systems General Denies dizziness or lightheadedness. Denies any recent, unexpectedweight changes. HEENT Denies any loss or change of vision. Denies tinnitus. Respiratory Denies PND, orthopnea, LIMON, hemoptysis, cough, or shortness ofbreath. Cardiac Denies chest pain or pressure, denies palpitations GI Denies melena, hematochezia, nausea, or vomiting. MS Denies any lower extremity edema. Neuro Denies speech, motor, or sensory impairment. Psych Denies depression or anxiety. Endo Denies polyuria or polydipsia, denies temperature intolerance. Derm Denies diaphoresis, ulcerations of his toes distally and I have seenpictures which she has sent to mePast HistoryPast Medical History:Diagnosis Date AAA (abdominal aortic aneurysm) s/p EVAR 01/2014 Dr Espinosa Coronary artery disease Diabetes mellitus Gout Hyperlipidemia Hypertension Myocardial infarction StrokePast Surgical History:Procedure Laterality Date ABDOMINAL AORTIC ANEURYSM REPAIR, ENDOVASCULAR N/A 01/31/2014 Procedure: REPAIR ANEURYSM ENDOVASCULAR ABDOMINAL AORTA/ILIAC ARTERY ;Surgeon: Giuseppe Espinosa MD; Location: [facility]; Service: Vascular;Laterality: N/A; AV FISTULA PLACEMENT Left 02/19/2015 Procedure: INSERT ARTERIAL VENOUS FISTULA UPPER EXTREMITY LEFT ; Surgeon:Gabriella Hernandez MD; Location: [facility]; Service: Vascular; Laterality:Left; CORONARY ARTERY BYPASS GRAFT 03/17/2008 Endovasculare repair AAA 01/31/2014 Dr Phillips reviewed. No pertinent family history.Social HistorySocioeconomic History Marital status: Spouse name: Not on file Number of children: Not on file Years of education: Not on file Highest education level: Not on fileOccupational History Not on fileSocial Needs Financial resource strain: Not on file Food insecurity: Worry: Not on file Inability: Not on file Transportation needs: Medical: Not on file Non-medical: Not on fileTobacco Use Smoking status: Never Smoker Smokeless tobacco: Never UsedSubstance and Sexual Activity Alcohol use: Yes Comment: rare Drug use: No Sexual activity: Not on fileLifestyle Physical activity: Days per week: Not on file Minutes per session: Not on file Stress: Not on fileRelationships Social connections: Talks on phone: Not on file Gets together: Not on file Attends caodaism service: Not on file Active member of club or organization: Not on file Attends meetings of clubs or organizations: Not on file Relationship status: Not on file Intimate partner violence: Fear of current or ex partner: Not on file Emotionally abused: Not on file Physically abused: Not on file Forced sexual activity: Not on fileOther Topics Concern Bike Helmet Not Asked History of Falls Not Asked Self-Exams Not Asked Caffeine Concern Not Asked Hobby Hazards Not Asked Sleep Concern Not Asked Daily Calcium Supplement Not Asked Lead Exposure Not Asked Special Diet Not Asked Daily Vitamin D Supplement Not Asked Service Not Asked Stress Concern Not Asked Domestic Violence in home Not Asked Radon exposure Not Asked Weight Concern Not Asked Exercise Not Asked Seat Belt Not Asked Well water Not Asked Firearms in home Not AskedSocial History Narrative Not on fileMedications and AllergiesALLERGIES/SENSITIVITIES: Iodinated diagnostic agentsCurrent Outpatient Medications: aspirin EC 81 MG EC tablet, Take 81 mg by mouth nightly , Disp: , Rfl: calcitriol (ROCALTROL) 0.25 MCG capsule, Take 0.25 mcg by mouth daily, Disp:, Rfl: clopidogrel (PLAVIX) 75 MG tablet, Take 1 tablet (75 mg total) by mouthdaily, Disp: 90 tablet, Rfl: 3 Ferrous Gluconate 239 (27 Fe) MG TABS, Take by mouth daily, Disp: , Rfl: finasteride (PROSCAR) 5 MG tablet, Take 5 mg by mouth daily, Disp: , Rfl: metoprolol succinate (TOPROL-XL) 25 MG 24 hr tablet, Take 1 tablet (25 mgtotal) by mouth daily, Disp: 90 tablet, Rfl: 3 metoprolol succinate (TOPROL-XL) 50 MG 24 hr tablet, Take 1 tablet (50 mgtotal) by mouth nightly, Disp: 90 tablet, Rfl: 3 rosuvastatin (CRESTOR) 10 MG tablet, Take 1 tablet (10 mg total) by mouthdaily 3 times weekly on Thursday, Thursday, and Thursday, Disp: 36 tablet, Rfl: 3 sevelamer (RENVELA) 800 MG tablet, Take 2,400 mg by mouth 2 (two) times a day, Disp: , Rfl: spironolactone (ALDACTONE) 25 MG tablet, Take 1 tablet (25 mg total) by mouthdaily, Disp: 90 tablet, Rfl: 3 vitamin D, Ergocalciferol, 1.25 MG (20925 UT) CAPS, Take 1 capsule by mouthonce a week, Disp: , Rfl:PhysicalPHYSICAL EXAM: Deferred due to Telemedicine encounterBP 130/65 | Pulse 72 | Wt 95.7 kg (211 lb) | BMI 30.28 kg/m DiagnosticsLabNoneImaging/Testing: There simply pictures of his ulcerated toes and I have reviewedEKG: NoneAssessment & PlanASSESSMENT/PLAN:1. Known coronary disease S/P LAD PCI in 09/08, on DAPT2. Chronic kidney disease followed by Dr. Mullen. On dialysis3. Status post aortic endovascular repair for an aneurysm in 2013- Dr Espinosa4. Diabetes mellitus5. Hypertension: good control6. Hyperlipidemia: on a statin7. Ulcerations on his lower extremities: They are healing and he is followingwith a podiatristI have spent 15 minutes with the patient, claims counsel ing/coordinating the patient'scare.I discussed the above listed diagnoses and discussed Results of diagnostictesting, Management option risks and benefits and Treatment/managementinstructionsFollow up has been arranged and the patient knows to call if any issues arisebetween now and then, all question were answered.Signature: Apollo Jolly MDDate: December 20, 2019Time: 10:26 AMThis document or parts of this document, were dictated using [employer]. A reasonable attempt at proofreading has been made to minimize errors.Please call with any questions or corrections. Name Value Range Interpretation Code Description Data Sil rce(s) Supporting Document(s) ID Date Data Source [id number] 11/24/2019 11:32:17 AM EDT [facility] CenterPAT[facility] NT INFORMATIONPatient MRN Name Date of Age Gend*PT [id number] Kell Wallis Jr. 1940 79 years M ---PT Location Admission Date/Time Visit ID Attending Provider --- --- --- --- EPI ID CSN Admitting Provider [id number] ---Cardiology History and PhysicalName: Kell Wallis Jr. Gender: maleDate of : 1940 Age: 79 yearsPrimary Care Provider / Referring Physician: DELVIS VERONICA[facility] [place] [facility] Telemedicine VisitPatient was identified by name and date of .Verbal consent was obtained from the patient for this telemedicine visit.Patient is aware of the risks, limitations, and benefits of a telemedicinevisit.This telemedicine assessment was conducted remotely with the assistance ofZENN Motorication technology: Telephone Only Codes 68786: 21 -30 minutes of medicaldiscussion: Telephone OnlyCurrent HistoryChief Complaint: This is a Telemedicine visitHPI:This patient is a 79 years male with the following updated problem list:1. Known coronary disease with multiple stents and ultimately CABG x3 in 2007.Cardiac catheterization 07/18/2019 PCI/CHAI LAD. EF 40%.2. Chronic kidney disease followed by Dr. Mullen. On dialysis3. Status post aortic endovascular repair for an aneurysm in 2013- Dr Espinosa4. Diabetes mellitus5. Hypertension6. Hyperlipidemia Review of Systems General Denies dizziness or lightheadedness. Denies any recent, unexp ectedweight changes. HEENT Denies any loss or change of vision. Denies tinnitus. Respiratory His weight was up to 230 pounds but now that he is at 217 withgood dialysis he is no longer short of breath and able to lie flat Cardiac Denies chest pain or pressure, denies palpitations GI Denies melena, hematochezia, nausea, or vomiting. MS Denies any lower extremity edema. Neuro Denies speech, motor, or sensory impairment. Psych Denies depression or anxiety. Endo Denies polyuria or polydipsia, denies temperature intolerance. Derm he has ulcerations on his foot involving his toes and what has beendescribed as ischemic changes of his lower extremitiesPast HistoryPast Medical History:Diagnosis Date AAA (abdominal aortic aneurysm) s/p EVAR 01/2014 Dr Espinosa Coronary artery disease Diabetes mellitus Gout Hyperlipidemia Hypertension Myocardial infarction StrokePast Surgical History:Procedure Laterality Date ABDOMINAL AORTIC ANEURYSM REPAIR, ENDOVASCULAR N/A 01/31/2014 Procedure: REPAIR ANEURYSM ENDOVASCULAR ABDOMINAL AORTA/ILIAC ARTERY ;Surgeon: Giuseppe Espinosa MD; Location: [facility]; Service: Vascular;Laterality: N/A; AV FISTULA PLACEMENT Left 02/19/2015 Procedure: INSERT ARTERIAL VENOUS FISTULA UPPER EXTREMITY LEFT ; Surgeon:Gabriella Hernandez MD; Location: [facility]; Service: Vascular; Laterality:Left; CORONARY ARTERY BYPASS GRAFT 03/17/2008 Endovasculare repair AAA 01/31/2014 Dr EspinosaHistory reviewed. No pertinent family history.Social HistorySocioeconomic History Marital status: Spouse name: Not on file Number of children: Not on file Years of education: Not on file Highest education level: Not on fileOccupational History Not on fileSocial Needs Financial resource strain: Not on file Food insecurity: Worry: Not on file Inability: Not on file Transportation needs: Medical: Not on file Non-medical: Not on fileTobacco Use Smoking status: Never Smoker Smokeless tobacco: Never UsedSubstance and Sexual Activity Alcohol use: Yes Comment: rare Drug use: No Sexual activity: Not on fileLifestyle Physical activity: Days per week: Not on file Minutes per session: Not on file Stress: Not on fileRelationships Social connections: Talks on phone: Not on file Gets together: Not on file Attends caodaism service: Not on file Active member of club or organization: Not on file Attends meetings of clubs or organizations: Not on file Relationship status: Not on file Intimate partner violence: Fear of current or ex partner: Not on file Emotionally abused: Not on file Physically abused: Not on file Forced sexual activity: Not on fileOther Topics Concern Bike Helmet Not Asked History of Falls Not Asked Self-Exams Not Asked Caffeine Concern Not Asked Hobby Hazards Not Asked Sleep Concern Not Asked Daily Calcium Supplement Not Asked Lead Exposure Not Asked Special Diet Not Asked Daily Vitamin D Supplement Not Asked Service Not Asked Stress Concern Not Asked Domestic Violence in home Not Asked Radon exposure Not Asked Weight Concern Not Asked Exercise Not Asked Seat Belt Not Asked Well water Not Asked Firearms in home Not AskedSocial History Narrative Not on fileMedications and AllergiesALLERGIES/SENSITIVITIES: Iodinated diagnostic agentsCurrent Outpatient Medications: Ferrous Gluconate 239 (27 Fe) MG TABS, Take by mouth daily, Disp: , Rfl: aspirin EC 81 MG EC tablet, Take 81 mg by mouth nightly , Disp: , Rfl: calcitriol (ROCALTROL) 0.25 MCG capsule, Take 0.25 mcg by mouth daily, Disp:, Rfl: clopidogrel (PLAVIX) 75 MG tablet, Take 1 tablet (75 mg total) by mouthdaily, Disp: 90 tablet, Rfl: 3 finasteride (PROSCAR) 5 MG tablet, Take 5 mg by mouth daily, Disp: , Rfl: metoprolol succinate (TOPROL-XL) 25 MG 24 hr tablet, Take 1 tablet (25 mgtotal) by mouth daily, Disp: 90 tablet, Rfl: 3 metoprolol succinate (TOPROL-XL) 50 MG 24 hr tablet, Take 1 tablet (50 mgtotal) by mouth nightly, Disp: 90 tablet, Rfl: 3 rosuvastatin (CRESTOR) 10 MG tablet, Take 1 tablet (10 mg total) by mouthdaily 3 times weekly on Thursday, Thursday, and Thursday, Disp: 36 tablet, Rfl: 3 sevelamer (RENVELA) 800 MG tablet, Take 2,400 mg by mouth 2 (two) times a day, Disp: , Rfl: spironolactone (ALDACTONE) 25 MG tablet, Take 1 tablet (25 mg total) by mouthdaily, Disp: 90 tablet, Rfl: 3 vitamin D, Ergocalciferol, 1.25 MG (56055 UT) CAPS, Take 1 capsule by mouthonce a week, Disp: , Rfl:PhysicalPHYSICAL EXAM: Deferred due to Telemedicine encounterBP 130/72 | Pulse 72 | Wt 98.4 kg (217 lb) | SpO2 95% | BMI 31.14 kg/m DiagnosticsLabNoneImaging/Testing: NoneEKG: NoneAssessment & PlanASSESSMENT/P MUMTAZ:1. Known coronary disease S/P LAD PCI in 09/08, on DAPT2. Chronic kidney disease followed by Dr. Mullen. On dialysis3. Status post aortic endovascular repair for an aneurysm in 2013- Dr Espinosa4. Diabetes mellitus5. Hypertension: good control6. Hyperlipidemia: on a statin7. Ulcerations on his lower extremities: Patient tells me that he underwent aCTA and was called by vascular surgery and told him that there were no issuesrelated to this. Given his previous history of an aortic aneurysm repair andknown vascular disease this certainly sounds like this may be a result ofvascular insufficiency and will need to be addressed by vascular surgery.I have spent 15 minutes with the patient, counseling/coordinating the patient'scare.I discussed the above listed diagnoses and discussed Prognosis, Managementoption risks and benefits, Treatment/management instructions, Compliance andRisk Factor ReductionFollow up has been arranged and the patient knows to call if any issues arisebetween now and then, all question were answered.Signature: Apollo Jolly MDDate: November 24, 2019Time: 11:04 AMThis document or parts of this document, were dictated using [employer]. A reasonable attempt at proofreading has been made to minimize errors.Please call with any questions or corrections. Name Value Range Interpretation Code Description Data Sil rce(s) Supporting Document(s) ID Date Data Source [id number] 11/18/2019 11:16:00 AM EDT [facility] AssociatesEXAM: XRAY FOOT COMPLETE RIGHTCLINICAL HISTORY: Osteomyelitis. Bilateral foot swelling and pain.COMPARISON: None.TECHNIQUE: Four views.FINDINGS: The bones are severely osteopenic. There is mild degenerative joint disease at the first metatarsophalangeal joint. No focal lytic bony lesion is seen. There is no fracture or dislocation.IMPRESSION: Diffuse osteopenia. Mild degenerative joint disease first metatarsophalangeal joint. No plain x-ray evidence of osteomyelitis is appreciated.Dictated by: Kim HOPKINS M.D. on 11/18/2019 Transcribed by: samia on <<TranscriptionDateTime1>>cc: Name Value Range Interpretation Code Description Data Sil rce(s) Supporting Document(s) ID Date Data Source [id number] 11/18/2019 11:15:00 AM EDT [facility] FOOT COMPLETE LEFTCLINICAL HISTORY: Osteomyelitis. Bilateral foot swelling and pain.COMPARISON: None.TECHNIQUE: Four views.FINDINGS: The bones are severely diffusely osteopenic. No focal lytic bony lesion is seen. No soft tissue gas or foreign body is seen. There is no fracture or dislocation. Mild degenerative joint disease present at the first metatarsophalangeal joint.IMPRESSION: Severe osteopenia. No plain x-ray evidence of osteomyelitis is seen.Dictated by: Kim HOPKINS M.D. on 11/18/2019 Transcribed by: samia on <<TranscriptionDateTime1>>cc: Name Value Range Interpretation Code Description Data Sil rce(s) Supporting Document(s) ID Date Data Source [id number] 11/08/2019 02:39:00 PM EDT [facility] ([facility] Name Value Range Interpretation Code Description Data Sil rce(s) Supporting Document(s) Virus identified in Unspecified specimen by Culture Laboratory test result [facility] ([facility] SRC: CERVIX [id number] ID Date Data Source [id number] 11/08/2019 02:37:00 PM EDT [facility] ([facility] Name Value Range Interpretation Code Description Data Sil rce(s) Supporting Document(s) Bacteria identified in Unspecified specimen by Aerobe culture Laboratory test result [facility] ([facility] SRC: BACK Bacteria identified in Unspecified specimen by Culture Laborator y test result [facility] ([facility] ) SRC: BACK ID Date Data Source [id number] 11/08/2019 02:37:00 PM EDT [facility] ([facility]) Name Value Range Interpretation Code Description Data Sil rce(s) Supporting Document(s) Bacteria identified in Unspecified specimen by Aerobe culture Laboratory test result [facility] ([facility]) ID Date Data Source [id number] 11/02/2019 12:00:00 AM EDT [facility] Gabriella Hernandez MD Patient Name: MARINA WALLIS [address] Date of : 1940[place] [address] Date of Exam: 11/02/2019#: Fax: [phone] EXAM: CT ANGIO ABDOMINAL W RUN OFFCLINICAL INFORMATION: Abdominal aortic aneurysm without rupture.CT CONTRAST DOSE: 125 ml of intravenous Optiray 350.CT TECHNIQUE: Helical scanning is acquired and axial 3 mm and 1.5 mmimages are reformatted. MIP, MPR and 3D surface rendered images aregenerated.NONVASCULAR CT FINDINGS:There is moderate 4-chamber cardiomegaly with central venous catheter inthe superior vena cava, right atrial junction. There is right ventricleand right atrial dilation and reflux of contrast opacified blood is seen inthe hepatic veins and intrahepatic vena cava consistent with right heartfailure. There is a small quantity of granuloma opaque material in thegallbladder suggesting small gallstones. There is marked atrophy of theleft kidney. A small left renal calculus is observed and there is a smallleft renal cyst. A small right renal cyst is observed. There is a minimalquantity of ascites in the pelvic reflections. Left colonic diverticulosisis seen.CT ANGIOGRAPHY VASCULAR FINDINGS:There is mild ectasia and mixed calcific and non-calcific plaquing of thedistal thoracic aorta. There is calcific plaquing at the origin of theceliac axis but no high-grade stenosis is seen. Similarly, the superiormesenteric artery origin shows no significant stenosis.There is a aortobiiliac stent graft in place for abdominal aortic aneurysm. The upper portion of the stent terminates at the origin of the right renalartery. The right renal artery is patent but there is calcific plaquingand evidence of substantial stenosis, 60 to 75%. The left renal arteryorigin appears to be occluded and possibly reconstituted. There is noevidence to suggest endoleak. The abdominal aortic aneurysm measures 6.3cm in greatest anteroposterior dimension. The common iliac arteries areectatic bilaterally with the stent grafts in place.Presumably, due to the patient's heart failure and prolonged circulationtime, contrast opacification in the vessels distal to the iliacs is lessthan optimal. A delayed acquisition was performed to correct for this.The external iliac arteries appear widely patent with calcific plaquing.There are surgical clips in the left inguinal soft tissues. No high- gradestenosis is seen in the common femoral arteries. There is extensiveatherosclerotic calcification along the course of the superficial femoralarteries bilaterally but no high-grade stenosis is seen. Popliteal arteryis of good caliber with calcification, there is mild ectasia of thepopliteal artery. The calf trifurcation shows no evidence of occlusion orsignificant stenosis. Proximal anterior tibial artery demonstrates a shortsegment occlusion with reconstituted flow. Anterior and tibial arteriescross the ankle showing patency.IMPRESSION:Status post aortobiiliac stent graft repair for 6.3 cm abdominal aorticaneurysm. 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 Marked left renal atrophy. Fairly extensive calcificplaquing diffusely in the superficial femoral arteries. Short segmentocclusions of the proximal anterior tibial arteries bilaterally.Accredited by the [employer] in [place].LEXUS Bolanos/Cassie lopez for referring KELL WALLIS to our office. Electronically Signed - VICENTA LONG MD 11/04/19 12:56 Name Value Range Interpretation Code Description Data Sil rce(s) Supporting Document(s) ID Date Data Source [id number] 09/06/2019 04:14:36 PM EDT [facility] NT INFORMATIONPatient MRN Name Date of Age Gend*PT [id number] Kell Wallis Jr. 1940 79 years M ---PT Location Admission Date/Time Visit ID Attending Provider --- --- --- --- EPI ID CSN Admitting Provider [id number] ---Cardiology Office VisitSubjectiveChief Complaint: Here for follow-up visitHPI:This patient is a 79 years male with a past medical history as stated below1. Known coronary disease with multiple stents and ultimately CABG x3 in 2007.Cardiac catheterization 07/18/2019 PCI/CHAI LAD. EF 40%.2. Chronic kidney disease followed by Dr. Mullen. On dialysis3. Status post aortic endovascular repair for an aneurysm in 2013- Dr Espinosa4. Diabetes mellitus5. Hypertension6. HyperlipidemiaWho presents to the office today for follow-up. He is accompanied by his .Patient's main complaint today is shortness of breath with exertion. He iscurrently undergoing dialysis. His weight is down 9 pounds since his lastvisit. He denies any associated chest pain or lower extremity edema. DeniesPND or orthopnea. He recently [facility] [place] [facility] catheterization with successful stentplacement to the LAD. He is on dual antiplatelet therapy with aspirin andPlavix. He is on lipid-lowering therapy.Review of SystemsThis patient denies otherwise, weight loss or weight gain, fevers, chills,sweats, change in urine or change in bowel habits, breast, lung, liver or kidneydisease. She denies hematologic, neurologic, dermatologic, pulmonary,psychiatric, orthopedic, endocrine, hematologic, gastroenterologic, infectious,oncologic, gynecologic or gender specific diseases.Past HistoryPast Medical History:Diagnosis Date AAA (abdominal aortic aneurysm) s/p EVAR 01/2014 Dr Espinosa Coronary artery disease Diabetes mellitus Gout Hyperlipidemia Hypertension Myocardial infarction StrokePast Surgical History:Procedure Laterality Date ABDOMINAL AORTIC ANEURYSM REPAIR, ENDOVASCULAR N/A 01/31/2014 Procedure: REPAIR ANEURYSM ENDOVASCULAR ABDOMINAL AORTA/ILIAC ARTERY ;Surgeon: Giuseppe Espinosa MD; Location: [facility]; Service: Vascular;Laterality: N/A; AV FISTULA PLACEMENT Left 02/19/2015 Procedure: INSERT ARTERIAL VENOUS FISTULA UPPER EXTREMITY LEFT ; Surgeon:Gabriella Hernandez MD; Location: [facility]; Service: Vascular; Laterality:Left; CORONARY ARTERY BYPASS GRAFT 03/17/2008 Endovasculare repair AAA 01/31/2014 Dr Israel family history on file.Social HistorySocioeconomic History Marital status: Spouse name: Not on file Number of children: Not on file Years of education: Not on file Highest education level: Not on fileOccupational History Not on fileSocial Needs Financial resource strain: Not on file Food insecurity: Worry: Not on file Inability: Not on file Transportation needs: Medical: Not on file Non-medical: Not on fileTobacco Use Smoking status: Never Smoker Smokeless tobacco: Never UsedSubstance and Sexual Activity Alcohol use: Yes Comment: rare Drug use: No Sexual activity: Not on fileLifestyle Physical activity: Days per week: Not on file Minutes per session: Not on file Stress: Not on fileRelationships Social connections: Talks on phone: Not on file Gets together: Not on file Attends caodaism service: Not on file Active member of club or organization: Not on file Attends meetings of clubs or organizations: Not on file Relationship status: Not on file Intimate partner violence: Fear of current or ex partner: Not on file Emotionally abused: Not on file Physically abused: Not on file Forced sexual activity: Not on fileOther Topics Concern Bike Helmet Not Asked History of Falls Not Asked Self-Exams Not Asked Caffeine Concern Not Asked Hobby Hazards Not Asked Sleep Concern Not Asked Daily Calcium Supplement Not Asked Lead Exposure Not Asked Special Diet Not Asked Daily Vitamin D Supplement Not Asked Service Not Asked Stress Concern Not Asked Domestic Violence in home Not Asked Radon exposure Not Asked Weight Concern Not Asked Exercise Not Asked Seat Belt Not Asked Well water Not Asked Firearms in home Not AskedSocial History Narrative Not on fileMedications and AllergiesAllergiesAllergen Reactions Iodinated Diagnostic Agents Other (See Comments) Kidney functionCurrent Outpatient MedicationsMedication Sig Dispense Refill amLODIPine (NORVASC) 5 MG tablet Take 1 tablet (5 mg total) by mouth daily 90tablet 3 aspirin EC 81 MG EC tablet Take 81 mg by mouth nightly calcitriol (ROCALTROL) 0.25 MCG capsule Take 0.25 mcg by mouth daily clopidogrel (PLAVIX) 75 MG tablet Take 1 tablet (75 mg total) by mouth daily90 tablet 3 ferrous gluconate (FERGON) 324 MG tablet Take 324 mg by mouth daily withbreakfast finasteride (PROSCAR) 5 MG tablet Take 5 mg by mouth daily metoprolol succinate (TOPROL-XL) 25 MG 24 hr tablet Take 1 tablet (25 mgtotal) by mouth daily 90 tablet 3 metoprolol succinate (TOPROL-XL) 50 MG 24 hr tablet Take 1 tablet (50 mgtotal) by mouth nightly 90 tablet 3 rosuvastatin (CRESTOR) 10 MG tablet Take 1 tablet (10 mg total) by mouth daily3 times weekly on Thursday, Thursday, and Thursday 36 tablet 3 sevelamer (RENVELA) 800 MG tablet Take 800 mg by mouth 3 (three) times a daywith meals spironolactone (ALDACTONE) 25 MG tablet Take 1 tablet (25 mg total) by mouthdaily 90 tablet 3 vitamin D, Ergocalciferol, 1.25 MG (01114 UT) CAPS Take 1 capsule by mouthonce a weekNo current facility-administered medications for this visit.PhysicalBP 132/58 (BP Location: Right upper arm, Patient Position: Sitting) | Pulse 80| Temp 97.8 F (Tympanic) | Resp 24 | Ht 1.778 m (5' 10") | Wt 100.3 kg (221lb 3.2 oz) | SpO2 94% | BMI 31.74 kg/m Physical Exam:Neck: Trachea is midline, there is no JVD, there are no bruits.Cardiac: S1, S2, physiologically split. Rhythm is regular. There is no S3. Thereis no S4. PMI is in the fourth LICS AAL.There were no lifts, heaves, rubs orthrills.Lungs: Are clear to auscultation and percussion without rhonchi, rubs rales orwheezes. Diaphragmatic excursion is normal. Inspiratory and expiratory durationsare normal.Extremities: Are without erythema, cyanosis, clubbing or edemaNeurologic/psychiatric: Cranial nerves, strength, sensory, reflexes, cerebellum,orientation, mood and affect are unremarkable. A very cursory psychiatricexamination exhibits no obvious psychiatric issues.Skin: Is warm and dry. There are no definitive areas of cellulitis or unusualskin findings.DiagnosticsLab:No visits with results within 1 Month(s) from this visit.Latest known visit with results is:Admission on 02/19/2015, Discharged on 02/19/2015Component Date Value Ref Range Status Potassium 02/19/2015 4.5 3.6 - 5.2 mmol/L Final Hematocrit 02/19/2015 38.2* 41.0 - 53.0 % Final Glucose, POC 02/19/2015 107* 70 - 99 mg/dL FinalImaging/Testing:N/AEKG: N/AAssessment & PlanPatient Active Problem ListDiagnosis Hypertension, essential Hyperlipidemia, acquired Gout Coronary artery disease Stroke Diabetes mellitus AAA (abdominal aortic aneurysm) Kidney atrophy PETEY (acute kidney injury) Hemoptysis ACS (acute coronary syndrome) CKD (chronic kidney disease) stage 4, GFR 15-29 ml/min1. Known coronary artery disease; history of previous bypass. Recent [place]acc[place] in [place] with stenting to the LAD, he is on dual antiplatelettherapy and lipid- lowering therapy.2. Chronic kidney disease; followed closely by nephrology. Currentlyundergoing dialysis3. Hyperlipidemia; target LDL should be 70 or less. He does remain on astatin.4. Hypertension; blood pressures under good control today.5. Shortness of breath with exertion; we did discuss performing an overnightoximetry. Patient's O2 saturation was fluctuating between 90 and 95 duringtoday's visit. He politely declined. Denies worsening symptoms of heartfailure. Is undergoing dialysis 3 times a week. Recently had ischemicevaluation with cardiac catheterization as stated above. We will see him backin 6 months for follow-up. He is aware to call office sooner if he has anyquestions or concerns.Signature: WANDA Martinate: September 06, 2019Time: 4:14 PM Name Value Range Interpretation Code Description Data Sil rce(s) Supporting Document(s) ID Date Data Source [id number] 08/17/2019 08:57:00 AM EST [facility] [address] [place] [address] PHONE: [phone] FAX: [phone] Name .................. : SHAN Bañuelos Acct Number.................. : [id number] ROOM. ................. : Number ................... : [id number] Stay type ............. : O/P Discharge Date......... ... : 08/16/19 Admit Date ......... : 08/16/19 Admit Phys .................... : CASSANDRAFELIPA SHEA Date of ....... : 1940 Family Phys ................... : JEREMÍAS HE Phone . ................. : [phone] Age ................................ : 79 Film# .................. .:[id number] Sex ................................. : M Unsigned transcriptions are preliminary reports and do not represent a medical or legal document CHEST 2 VIEWS [id number] COMPLETE:08/16/19 16:53 ABELINO [id number] (REASON FOR CHEST: SOB CHEST X-RAY: PA AND LATERAL VIEWS HISTORY: Shortness of breath. FINDINGS: The heart is enlarged. There are increased markings at the lung bases. No active infiltrates are seen. Operative changes and previous CABG are noted. A right jugular dialysis catheter has its tip in the right atrium. IMPRESSION: Cardiomegaly. Increased markings at the lung bases could be related to chronic pulmonary disease. Electronically Reviewed and Signed By Cristhian Knox MD , 08/17/19 08:57, MRA Transcribe Initials: DZ , Transcribe Date: 08/16/19 20:37, Dictation Date: Copy for: CASSANDRA LOPEZ via fax Copy for: JEREMÍAS FRYE via fax Copy for: Stephenie MED REC Page 1 of 1 Name Value Range Interpretation Code Description Data Sil rce(s) Supporting Document(s) Procedure Social History Code Duration Value Status Description Data Source(s ) Smoking 05/22/2020 12:00:00 AM EST Patient has never smoked co mpleted Patient has never smoked [facility] ([facility] Smoking 05/10/2020 12:00:00 AM EST Patient has never smoked co mpleted Patient has never smoked [facility] ([facility]) Alcohol intake 04/26/2020 12:00:00 AM EST Yes completed [facility] Smoking 04/26/2020 12:00:00 AM EST Never smoker completed Never s moker [facility] Smoking 03/06/2020 12:00:00 AM EDT Never Smoked A Pipe complet ed Never Smoked A Pipe [facility] ([facility]) Smoking 02/01/2020 12:00:00 AM EDT Never Smoked Cigarettes com pleted Never Smoked Cigarettes [facility] ([facility]) Vital Signs ID Date Data Source UNK Name Value Range Interpretation Code Description Data Source(s) Oxygen saturation in Arterial blood by Pulse oximetry 97 % 97 % [facility] ([facility] Body mass index (BMI) [Ratio] 28.4 kg/m2 28.4 k g/m2 [facility] [place] body weight 166 [lb_av] 166 [lb_av] [facility] T ([facility] Body weight 198.00 [lb_av] 198.00 [lb_av] [facility] T ([facility] Body height 70 [in_i] 70 [in_i] [facility] ([facility] 5'10" Respiratory rate 16 /min 16 /min [facility] ( [facility] Heart rate 70 /min 70 /min [facility] ([facility] Body temperature 98.4 [degF] 98.4 [degF] [facility] ([facility] Diastolic blood pressure 68 mm[Hg] 68 mm[Hg] [facility] ([facility] Systolic blood pressure 118 mm[Hg] 118 mm[Hg] M [facility] ([facility] Body mass index (BMI) [Ratio] 28.0 kg/m2 28.0 k g/m2 [facility] ([facility] Body weight 88.452 kg 88.452 kg [facility] Body weight 195.00 [lb_av] 195.00 [lb_av] [facility] T ([facility]) Body height 70 [in_i] 70 [in_i] [facility] 5'10" Heart rate 40 /min 40 /min [facility] Diastolic blood pressure 70 mm[Hg] 70 mm[Hg] [facility] ([facility]) Systolic blood pressure 110 mm[Hg] 110 mm[Hg] M [facility] ([facility]) Oxygen saturation in Arterial blood by Pulse oximetry 97 % 97 % [facility] Body mass index (BMI) [Ratio] 27.98 kg/m2 27.98 kg/m2 [facility] Body weight 88.451 kg 88.451 kg [facility] Body height 177.8 cm 177.8 cm [facility] Heart rate 62 /min 62 /min [facility] Diastolic blood pressure 69 mm[Hg] 69 mm[Hg] [facility] Systolic blood pressure 131 mm[Hg] 131 mm[Hg] [facility] Body weight 88.452 kg 88.452 kg [facility] ([facility] Body weight 195.00 [lb_av] 195.00 [lb_av] MEDEN T ([facility]) Heart rate 70 /min 70 /min [facility] ([facility] Diastolic blood pressure 80 mm[Hg] 80 mm[Hg] [facility] ([facility]) Systolic blood pressure 130 mm[Hg] 130 mm[Hg] M EDENT ([facility]) Oxygen saturation in Arterial blood by Pulse oximetry 94 % 94 % [facility] ([facility] Body mass index (BMI) [Ratio] 28.4 kg/m2 28.4 k g/m2 [facility] ([facility] [place] body weight 166 [lb_av] 166 [lb_av] MEDEN T ([facility] Body weight 198.00 [lb_av] 198.00 [lb_av] MEDEN T ([facility] Body height 70 [in_i] 70 [in_i] MED[facility] ([facility] 5'10" Respiratory rate 16 /min 16 /min MED[facility] ( [facility] Heart rate 70 /min 70 /min [facility] ([facility] Body temperature 98.0 [degF] 98.0 [degF] [facility] ([facility] Diastolic blood pressure 74 mm[Hg] 74 mm[Hg] [facility] ([facility] Systolic blood pressure 118 mm[Hg] 118 mm[Hg] M EDENT ([facility] Heart rate 67 /min 67 /min [facility] ([facility] Diastolic blood pressure 70 mm[Hg] 70 mm[Hg] [facility] ([facility]) Systolic blood pressure 115 mm[Hg] 115 mm[Hg] M [facility] ([facility]) Body mass index (BMI) [Ratio] 33.0 kg/m2 33.0 k g/m2 [facility] ([facility]) Body weight 104.328 kg 104.328 kg [facility] ([facility] Body weight 230.00 [lb_av] 230.00 [lb_av] [facility] T ([facility]) Body height 70 [in_i] 70 [in_i] [facility] ([facility] 5'10" Oxygen saturation in Arterial blood by Pulse oximetry 97 % 97 % [facility] ([facility]) Body weight 90.700 kg 90.700 kg [facility] ([facility] Body weight 199.94 [lb_av] 199.94 [lb_av] [facility] T ([facility]) Respiratory rate 17 /min 17 /min [facility] ( [facility]) Body temperature 96.0 [degF] 96.0 [degF] [facility] ([facility]) Heart rate 69 /min 69 /min [facility] ([facility]) Diastolic blood pressure 89 mm[Hg] 89 mm[Hg] [facility] ([facility]) Systolic blood pressure 131 mm[Hg] 131 mm[Hg] M [facility] ([facility]) Body weight 93.000 kg 93.000 kg [facility] ([facility] Body weight 205.00 [lb_av] 205.00 [lb_av] [facility] T ([facility]) Diastolic blood pressure 60 mm[Hg] 60 mm[Hg] [facility] ([facility]) Systolic blood pressure 90 mm[Hg] 90 mm[Hg] M [facility] ([facility]) Oxygen saturation in Arterial blood by Pulse oximetry 95 % 95 % [facility] ([facility]) Body weight 95.710 kg 95.710 kg [facility] ([facility] Body weight 211.00 [lb_av] 211.00 [lb_av] [facility] T ([facility]) Respiratory rate 14 /min 14 /min [facility] ( [facility]) Body temperature 97.5 [degF] 97.5 [degF] [facility] ([facility]) Heart rate 81 /min 81 /min [facility] ([facility]) Diastolic blood pressure 83 mm[Hg] 83 mm[Hg] [facility] ([facility]) Systolic blood pressure 118 mm[Hg] 118 mm[Hg] M [facility] ([facility]) Body weight 99.338 kg 99.338 kg [facility] ([facility] ) Body mass index (BMI) [Ratio] 31.4 kg/m2 31.4 k g/m2 [facility] ([facility]) Body weight 219.00 [lb_av] 219.00 [lb_av] MEDEN T ([facility]) Body height 70 [in_i] 70 [in_i] [facility] ([facility]) 5'10" Diastolic blood pressure 70 mm[Hg] 70 mm[Hg] [facility] ([facility]) Systolic blood pressure 119 mm[Hg] 119 mm[Hg] M EDENT ([facility]) Oxygen saturation in Arterial blood by Pulse oximetry 97 % 97 % [facility] ([facility] Body height 70 [in_i] 70 [in_i] [facility] ([facility] 5'10" Respiratory rate 14 /min 14 /min [facility] ( [facility] Heart rate 74 /min 74 /min [facility] ([facility] Body temperature 97.3 [degF] 97.3 [degF] [facility] ([facility] Diastolic blood pressure 80 mm[Hg] 80 mm[Hg] [facility] ([facility] Systolic blood pressure 128 mm[Hg] 128 mm[Hg] M ED[facility] ([facility] Body mass index (BMI) [Ratio] 31.1 kg/m2 31.1 k g/m2 [facility] ([facility]) Body weight 98.431 kg 98.431 kg [facility] ([facility] Body weight 217.00 [lb_av] 217.00 [lb_av] [facility] T ([facility] Body height 70 [in_i] 70 [in_i] [facility] ([facility] 5'10" Heart rate 72 /min 72 /min [facility] Diastolic blood pressure 82 mm[Hg] 82 mm[Hg] [facility] Systolic blood pressure 124 mm[Hg] 124 mm[Hg] M EDENT ([facility]) Oxygen saturation in Arterial blood by Pulse oximetry 97 % 97 % [facility] ([facility] ([place]), ([facility]) Body height 70 [in_i] 70 [in_i] [facility] ([facility] 5'10" Respiratory rate 18 /min 18 /min [facility] ( [facility] Heart rate 75 /min 75 /min [facility] ([facility] Body temperature 98.2 [degF] 98.2 [degF] [facility] ([facility] Diastolic blood pressure 60 mm[Hg] 60 mm[Hg] [facility] ([facility] Systolic blood pressure 142 mm[Hg] 142 mm[Hg] M EDENT ([facility] Oxygen saturation in Arterial blood by Pulse oximetry 97 % 97 % [facility] ([facility] ([place]), (Room Air) Body height 70 [in_i] 70 [in_i] [facility] ([facility] 5'10" Respiratory rate 19 /min 19 /min [facility] ( [facility] Heart rate 66 /min 66 /min [facility] ([facility] Body temperature 99.2 [degF] 99.2 [degF] [facility] ([facility] Diastolic blood pressure 70 mm[Hg] 70 mm[Hg] [facility] ([facility] Systolic blood pressure 132 mm[Hg] 132 mm[Hg] M ED[facility] ([facility] Body mass index (BMI) [Ratio] 31.1 kg/m2 31.1 k g/m2 [facility] ([facility]) Oxygen saturation in Arterial blood by Pulse oximetry 100 % 100 % [facility] ([facility]) Body weight 98.431 kg 98.431 kg [facility] ([facility] Body weight 217.00 [lb_av] 217.00 [lb_av] MEDEN T ([facility]) Body height 70 [in_i] 70 [in_i] [facility] 5'10" Respiratory rate 16 /min 16 /min [facility] ( [facility]) Body temperature 97.0 [degF] 97.0 [degF] [facility] ([facility]) Heart rate 75 /min 75 /min [facility] Diastolic blood pressure 74 mm[Hg] 74 mm[Hg] [facility] ([facility]) Systolic blood pressure 135 mm[Hg] 135 mm[Hg] M EDENT ([facility]) Patient Treatment Plan of Care Planned Activity Planned Date Details Description Data Source (s) Rosuvastatin calcium 10 MG Oral Tablet 01/11/2020 12:00:00 AM EDT [facility] 24 HR metoprolol succinate 50 MG Extended Release Oral Tablet 09/19/2019 12:00:00 AM EDT [facility] clopidogrel 75 MG Oral Tablet 08/18/2019 12:00:00 AM EST [facility] 24 HR metoprolol succinate 25 MG Extended Release Oral Tablet 03/17/2019 12:00:00 AM EDT [facility] Spironolactone 25 MG Oral Tablet 01/17/2019 12:00:00 AM EDT [facility] Ferrous Gluconate 239 (27 Fe) MG TABS [facility] Finasteride 5 MG Oral Tablet [facility] Calcitriol 0.28225 MG Oral Capsule [facility]
--- OUTSIDE RECORDS SUMMARY | 2020-07-11 16:12 | CCD | Continuity of Care Document ---
Author Author Jaren HERNANDEZ MD Organization Unknown Address [address] [place] [id number] Phone [phone] Care Team Providers Care Pearl Glue Operator Name Role Phone JeremíasCalixtoDelvischinedu Newell AUTM [phone] Luke Avila M.D. AUTM [phone] John Mullen M.D. AUTM [phone] Problems Active Problems Provider Date Essential hypertension [...] larkin day Unknown Vitamin D (Ergocalciferol) 1.25mg (01097 Ut) Capsules every week Unknown Sevelamer HCL [...] H/L Range Note Xray 01/17/2020 Main Office [phone] Carotid Ultrasound Bilateral <pending> Abdominal Aortic Aneurysm Ultrasound <pending> Procedures Date Code Description Status 01/17/2020 12494 Duplex Scan Aorta/In f Vena Cava/Iliac Vasc/Bypass GRFT LTD/Fol-Up Completed 01/17/2020 15480 Duplex Scan Extracranial Arterie s, Follow-Up Or Limited Study Completed 01/17/2020 04922 Duplex Scan Extracranial Arterie s, Follow-Up Or Limited Study Completed Medical Devices Description No Information Available Encounters Type Date Location Provider Dx Diagnosis Office Visit 11/18/2019 9:00a Main Office Belinda Hernandez M.D. 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 * 08/17/2020 11:00 am - Belinda Hernandez M.D. at Main Office * 08/17/2020 10:00 am - [facility] at Main Office 04/18/2020 - Belinda Hernandez M.D.* * Follow up:* SCHEDULED FOR SURGERY Functional Status Description No Information Available Mental Status Description No Information Available Referrals Description No Information Available
[2020-07-11] MEDS ORDERED: PENT400T47 PO (16:24)
[2020-07-11 17:29] LABS: BASO # 0.1 10^3/uL (0.0-0.2); BASO % 0.5 % (0.0-1.0); EOS # 0.1 10^3/uL (0.0-0.5); LYMPH # 0.9 10^3/uL (1.5-5.0); LYMPH % 8.5 % (24.0-44.0); MEAN CORPUSCULAR HEMOGLOBIN 34.8 pg (27.0-33.0); MEAN CORPUSCULAR VOLUME 112.3 fl (80.0-96.0); MONO # 1.2 10^3/uL (0.0-0.8); MONO % 10.6 % (0.0-5.0); NEUTROPHILS # 8.6 10^3/uL (1.5-8.5); NEUTROPHILS % 78.9 % (36.0-66.0); PLATELET COUNT, AUTOMATED 122 10^3/uL (150-450); RED BLOOD COUNT 1.87 10^6/uL (4.30-6.10); WHITE BLOOD COUNT 10.9 10^3/uL (4.0-10.0)
[2020-07-11 17:33] LABS: HEMOGLOBIN 6.5 g/dl (13.5-17.5)
[2020-07-11] MEDS ORDERED: ONDANSETRON 4MG/2ML VIAL IV ONE (17:45)
[2020-07-11 17:51] LABS: ALBUMIN 2.8 GM/DL (3.2-5.2); BILIRUBIN,DIRECT 0.7 MG/DL (0.0-0.2); BILIRUBIN,TOTAL 1.1 MG/DL (0.2-1.0); CK-MB VALUE MASS 1.4 NG/ML (<3.6); CREATININE FOR GFR 6.49 MG/DL (0.70-1.30); GLOMERULAR FILTRATION RATE 8.9 (>42); MB/CK RELATIVE INDEX 7.37 (< OR =4); POTASSIUM SERUM 5.2 MEQ/L (3.5-5.1); TOTAL PROTEIN 7.2 GM/DL (6.4-8.2); TROPONIN I 0.26 NG/ML (< 0.10)
[2020-07-11] MEDS ORDERED: PANTOPRAZOLE 40MG VIAL (C9113 PER 1) IV ONE (18:15)
--- NOTE | 2020-07-11 18:17 | REP ---
INDICATION: r/o SBO. COMPARISON: Chest 07/10/2014. TECHNIQUE: Supine and erect views of the abdomen are performed. A frontal view of the chest is performed. FINDINGS: There is no evidence of free intraperitoneal air. No significantly dilated bowel loops are visualized, with no compelling radiographic evidence of small bowel obstruction. Vascular calcifications and phleboliths are seen in the pelvis. 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 Calcifications are seen of the distal abdominal aorta. There is moderate cardiomegaly. Multiple sternal wires mediastinal clips are present. The mediastinal silhouette is unchanged. There are mild chronic bibasilar interstitial changes with no acute infiltrate. IMPRESSION: No free air or obstruction. Moderate cardiomegaly. No acute infiltrate. <Electronically signed by Frank Rodriguez > 07/11/20 0490
[2020-07-11] MEDS ORDERED: D5W/0.45% SODIUM CHLORIDE 1,000 ML IV SCH (18:25)
[2020-07-11 18:28] LABS: RSV AMPLIFICATION NEGATIVE (NEGATIVE)
[2020-07-11] MEDS ORDERED: GLUCOSE 4GM CHEW TABLET PO PRN (18:30)
[2020-07-11] MEDS ORDERED: GLUCAGON INJ 1MG VIAL SC PRN (18:30)
[2020-07-11] MEDS ORDERED: DEXTROSE 50% 50 ML SYRINGE IV PRN (18:30)
[2020-07-11] MEDS ORDERED: SEVE800T3 PO (18:31)
[2020-07-11] MEDS ORDERED: ASPI81TA27 PO (18:31)
[2020-07-11] MEDS ORDERED: ROSU10TA6 PO (18:31)
--- OUTSIDE RECORDS SUMMARY | 2020-07-11 18:49 | CCD ---
Author Author [facility] Organization [facility] Address Unknown Phone Unavailable Care Team Providers Care Golf Course Laborer Name Role Phone Cassandra, Bossman Lopez MD [...] Fish, J Delvis Unavailable Unavailable Fish, J Dlevis Unavailable Unavailable Fish, J Delvis Unavailable Unavailable [...] AUDIE BAKER Unavailable Unavailable VANESSA, H AUDIE MD Unavailable [...] Unavailable SHANAEEdda MD Unavailable Unavailable María CHOPRA RETAIL BUSINESS DEVELOPMENT MANAGER Unavailable Unavailable María CHOPRA RETAIL BUSINESS DEVELOPMENT MANAGER Unavailable Unavailable María CHOPRA RETAIL BUSINESS DEVELOPMENT MANAGER Unavailable Unavailable María CHOPRA RETAIL BUSINESS DEVELOPMENT MANAGER Unavailable Unavailable María CHOPRA RETAIL BUSINESS DEVELOPMENT MANAGER Unavailable Unavailable María CHOPRA RETAIL BUSINESS DEVELOPMENT MANAGER Unavailable Unavailable María CHOPRA RETAIL BUSINESS DEVELOPMENT MANAGER Unavailable Unavailable María CHOPRA RETAIL BUSINESS DEVELOPMENT MANAGER Unavailable Unavailable María CHOPRA RETAIL BUSINESS DEVELOPMENT MANAGER Unavailable Unavailable María CHOPRA RETAIL BUSINESS DEVELOPMENT MANAGER Unavailable Unavailable María CHOPRA RETAIL BUSINESS DEVELOPMENT MANAGER Unavailable Unavailable CHOPRAMaría Stroud RETAIL BUSINESS DEVELOPMENT MANAGER Unavailable Unavailable CHOPRA, M ALESSIA RETAIL BUSINESS DEVELOPMENT MANAGER Unavailable Unavailable CHOPRA, M ALESSIA RETAIL BUSINESS DEVELOPMENT MANAGER Unavailable Unavailable CHOPRA, M ALESSIA RETAIL BUSINESS DEVELOPMENT MANAGER Unavailable Unavailable CHOPRA, M ALESSIA RETAIL BUSINESS DEVELOPMENT MANAGER Unavailable Unavailable CHOPRA, M ALESSIA RETAIL BUSINESS DEVELOPMENT MANAGER Unavailable Unavailable CHOPRA, M ALESSIA RETAIL BUSINESS DEVELOPMENT MANAGER Unavailable Unavailable CHOPRA, M ALESSIA RETAIL BUSINESS DEVELOPMENT MANAGER Unavailable Unavailable CHOPRA, M ALESSIA RETAIL BUSINESS DEVELOPMENT MANAGER Unavailable Unavailable CHOPRA, M ALESSIA RETAIL BUSINESS DEVELOPMENT MANAGER Unavailable Unavailable CHOPRA, M ALESSIA RETAIL BUSINESS DEVELOPMENT MANAGER Unavailable Unavailable CHOPRA, M ALESSIA RETAIL BUSINESS DEVELOPMENT MANAGER Unavailable Unavailable CHOPRA, M ALESSIA RETAIL BUSINESS DEVELOPMENT MANAGER Unavailable Unavailable CHOPRA, M ALESSIA RETAIL BUSINESS DEVELOPMENT MANAGER Unavailable Unavailable CHOPRA, M ALESSIA RETAIL BUSINESS DEVELOPMENT MANAGER Unavailable Unavailable CHOPRA, M ALESSIA RETAIL BUSINESS DEVELOPMENT MANAGER Unavailable Unavailable CHOPRA, M ALESSIA RETAIL BUSINESS DEVELOPMENT MANAGER Unavailable Unavailable CHOPRA, M ALESSIA RETAIL BUSINESS DEVELOPMENT MANAGER Unavailable Unavailable CHOPRA, M ALESSIA RETAIL BUSINESS DEVELOPMENT MANAGER Unavailable Unavailable CHOPRA, M ALESSIA RETAIL BUSINESS DEVELOPMENT MANAGER Unavailable Unavailable CHOPRA, M ALESSIA RETAIL BUSINESS DEVELOPMENT MANAGER Unavailable Unavailable CHOPRA, M ALESSIA RETAIL BUSINESS DEVELOPMENT MANAGER Unavailable Unavailable CHOPRA, M ALESSIA RETAIL BUSINESS DEVELOPMENT MANAGER Unavailable Unavailable CHOPRA, M ALESSIA RETAIL BUSINESS DEVELOPMENT MANAGER Unavailable Unavailable CHOPRA, M ALESSIA RETAIL BUSINESS DEVELOPMENT MANAGER Unavailable Unavailable CHOPRA, M ALESSIA RETAIL BUSINESS DEVELOPMENT MANAGER Unavailable Unavailable CHOPRA, M ALESSIA RETAIL BUSINESS DEVELOPMENT MANAGER Unavailable Unavailable CHOPRA, M ALESSIA RETAIL BUSINESS DEVELOPMENT MANAGER Unavailable Unavailable CHOPRA, M ALESSIA RETAIL BUSINESS DEVELOPMENT MANAGER Unavailable Unavailable CHOPRA, M ALESSIA RETAIL BUSINESS DEVELOPMENT MANAGER Unavailable Unavailable CHOPRA, M ALESSIA RETAIL BUSINESS DEVELOPMENT MANAGER Unavailable Unavailable CHOPRA, M ALESSIA RETAIL BUSINESS DEVELOPMENT MANAGER Unavailable Unavailable CHOPRA, M ALESSIA RETAIL BUSINESS DEVELOPMENT MANAGER Unavailable Unavailable CHOPRA, M ALESSIA RETAIL BUSINESS DEVELOPMENT MANAGER Unavailable Unavailable CHOPRA, M ALESSIA RETAIL BUSINESS DEVELOPMENT MANAGER Unavailable Unavailable CHOPRA, M ALESSIA RETAIL BUSINESS DEVELOPMENT MANAGER Unavailable Unavailable CHOPRA, M ALESSIA RETAIL BUSINESS DEVELOPMENT MANAGER Unavailable Unavailable CHOPRA, M ALESSIA RETAIL BUSINESS DEVELOPMENT MANAGER Unavailable Unavailable CHOPRA, M ALESSIA RETAIL BUSINESS DEVELOPMENT MANAGER Unavailable Unavailable CHOPRA, M ALESISA RETAIL BUSINESS DEVELOPMENT MANAGER Unavailable Unavailable CHOPRA, M ALESSIA RETAIL BUSINESS DEVELOPMENT MANAGER Unavailable Unavailable CHOPRA, M ALESSIA RETAIL BUSINESS DEVELOPMENT MANAGER Unavailable Unavailable CHOPRA, M ALESSIA RETAIL BUSINESS DEVELOPMENT MANAGER Unavailable Unavailable CHOPRA, M ALESSIA RETAIL BUSINESS DEVELOPMENT MANAGER Unavailable Unavailable CHOPRA, M ALESSIA RETAIL BUSINESS DEVELOPMENT MANAGER Unavailable Unavailable CHOPRA, M ALESSIA RETAIL BUSINESS DEVELOPMENT MANAGER Unavailable Unavailable CHOPRA, M ALESSIA RETAIL BUSINESS DEVELOPMENT MANAGER Unavailable Unavailable Sweet, Gambee Lala PA-C Unavailable [...] A Hernandez MD Unavailable Unavailable Juan A Hernadnez MD Unavailable Unavailable Juan A Hernandez MD [...] Unavailable Juan A Hernandez MD Unavailable Unavailable Juna A Hernandez MD Unavailable Unavailable Juan A [...] is protected by Article 27-F of the [facility] Public Health law. If you continue you may have access to information: Regarding HIV / AIDS; Provided by facilities licensed or operated by the [facility] Office of Mental Health; or Provided by the [facility] Office for People With Developmental Disabilities. If such information is present, then the following [facility] mandated warning applies: This information has [...] law may result in a fine or halfway sentence or both. A general authorization for the release of medical or other information is NOT sufficient authorization for further disc losure. Allergies and Adverse Reactions Type Description Substance Reaction Status Data Source(s ) CLASS CONTRAST MEDIA, IODINE RELATED CONTRAST MEDIA, IODINE RELA SANDER [facility] Family History Family Member Name Family Member Gender Family Member Status Date o f Status Description Data Source(s) Unknown Male Problem [facility] ([facility] Unknown Unknown Problem [facility] ([facility] Unknown Female Problem [facility] ([facility] ) Encounters Encounter Providers Location Date Indications Data Source(s ) Outpatient Attender: Delvis Veronica [facility] 05/22/2020 12:30:0 0 PM EST [facility] ([facility] Office Visit Attender: Nathalie CASTRO Main Office 05/10/2020 12:15:00 PM EST [facility] ([facility]) Outpatient Attender: Gabriella Hernandez MDReferrer: Gabriella cooper MD MOB-MOB.PAT 04/26/2020 12:51:28 PM EST - 04/26/2020 02:30:19 PM [facility] Outpatient Referrer: Gabriella ANDREWS.PAT 04/26 11:13:22 AM EST - 04/26/2020 11:13:36 AM EST [facility] SDC Attender: Gabriella Hernandez MDAdmitter: Gabriella cooper MD ES1-OR 04/25/2020 10:38:43 AM EST - 05/01/2020 07:03:00 PM [facility] Patient discharged. Outpatient Attender: Gabriella Hernandez MD Main Office 04/18/2020 02:00:00 PM EDT [facility] ([facility]) Outpatient Attender: GENO VERDIN DPM PCConsultant: Mary Veronica 03/27/2020 01:50:00 PM EDT - 03/27/2020 [facility] [place] [facility]: GENO VERDIN DPM PCConsultant: Mary Veronica 03/06/2020 09:48:00 AM EDT - 03/06/2020 09:48:00 AM [facility] Outpatient Attender: Delvis Veronica [facility] 02/21/2020 01:00:0 0 PM EDT MED[facility] ([facility] Outpatient Attender: GENO VERDIN DPM PCConsultant: Calixtokarina chu Jeremías 02/14/2020 09:38:00 AM EDT - 02/14/2020 09:38:00 AM [facility] Outpatient Attender: VASYL Montiel/ A.M.P. Urology 02/01/2020 01:00:00 PM EDT [facility] ([facility]) Outpatient Attender: GENO VERDIN DPM PCConsultant: Calixtokarina chu Jeremías 01/25/2020 08:41:00 AM EDT - 01/25/2020 08:41:00 AM [facility] Outpatient Attender: GENO VERDIN DPM PCConsultant: Mary Veronica 01/03/2020 01:51:00 PM EDT - 01/03/2020 01:51:00 PM EDT [facility] Outpatient Attender: APOLLO JOLLY MD BF-BF 12/20/2019 07:29:14 AM EDT [facility] Outpatient Attender: GENO VERDIN DPM PCConsultant: Mary Veronica 12/13/2019 01:33:00 PM EDT - 12/13/2019 01:33:00 PM EDT [facility] Outpatient Attender: GENO VERDIN DPM PCConsultant: Mary Veronica 11/29/2019 10:12:00 AM EDT - 11/29/2019 10:12:00 AM EDT [facility] Outpatient Attender: AUDIE MENDEZ MD [facility] 09/2019 01:00:00 PM EDT [facility] ([facility] Outpatient Attender: APOLLO JOLLY MD BF-BF 11/24/2019 07:45:57 AM EDT [facility] Outpatient Referrer: Gabriella Hernandez MD 11/18/2019 10:57:50 AM EDT [facility] Outpatient Attender: Gabriella Hernandez MD Main Office 11/18/2019 09:00:00 AM EDT [facility] ([facility]) Outpatient Attender: Delvis Veronica [facility] 11/15/2019 01:30:0 0 PM EDT [facility] ([facility] Outpatient Attender: ALESSIA CHOPRA NP [place] [facility] 11/07 02:00:00 PM EDT [facility] ([facility] Outpatient Referrer: CIELO HERNANDEZ 11/02/2019 11:21:00 AM EDT [facility] Outpatient Referrer: CIELO HERNANDEZ 11/02/2019 11:20:00 AM EDT [facility] Outpatient Referrer: CIELO HERNANDEZ 10/27/2019 03:52:00 PM EDT [facility] Outpatient Attender: Lala Figueroa PA-C BF-BF.CVS 12:00:00 AM EDT - 09/06/2019 03:41:26 PM EDT [facility] Outpatient Attender: John Cassandra MDConsultant: Delvis Kemar almeida 08/16/2019 11:40:00 AM EST - 08/16/2019 12:40:00 PM EST [facility] Outpatient Attender: Gabriella Hernandez MD Main Office 08/05/2019 10:00:00 AM EST [facility] ([facility]) Immunizations Vaccine Date Status Description Data Source(s) New in 2012. IIV4 05/22/2020 12:51:00 PM EST completed [facility] ([facility] Medications Medication Brand Name Start Date Product Form Dose Route Admi nistrative Instructions Pharmacy Instructions Status Indications Reaction Description Data Source(s) Pentoxifylline 400 MG Extended Release Oral Tablet Pentoxify lline ER 03/06/2020 12:00:00 AM EDT ORAL active M EDENT ([facility]) Mupirocin 0.02 MG/MG Topical Ointment Mupirocin 02/22/2020 12:00:00 AM EDT completed [facility] Rosuvastatin calcium 10 MG Oral Tablet rosuvastatin (C RESTOR) 10 MG tablet rosuvastatin (CRESTOR) 10 MG tablet 01/11/2020 12:00:00 AM EDT active TAKE 1 TABLET BY MOUTH THREE TIMES A WEE K. THURSDAY, THURSDAY, AND THURSDAY. [facility] Pentoxifylline 400 MG Extended Release Oral Tablet Pentoxify lline ER 11/29/2019 12:00:00 AM EDT ORAL completed [facility] ([facility]) Doxycycline Monohydrate 100 MG Oral Capsule Doxycycline Sandoval hydrate 11/08/2019 12:00:00 AM EDT ORAL completed [facility] ([facility] mometasone furoate 1 MG/ML Topical Cream Mometasone Furoate 11/08/2019 12:00:00 AM EDT active [facility] ([facility] Eucrisa Eucrisa 11/08/2019 12:00:00 AM EDT complet ed [facility] ([facility] apixaban 2.5 MG Oral Tablet [Eliquis] Eliquis 10/25/2019 12:00:00 AM EDT ORAL completed [facility] ([facility]) 24 HR metoprolol succinate 50 MG Extende d Release Oral Tablet metoprolol succinate (TOPROL-XL) 50 MG 24 hr tablet metoprolol succinate (TOPROL-XL) 50 MG 24 hr tablet 09/19/2019 12:00:00 AM EDT 50 mg Oral abort ed Take 1 tablet (50 mg total) by mouth nightly [facility] clopidogrel 75 MG Oral Tablet clopidogrel (PLAVIX) 75 MG tablet clopidogrel (PLAVIX) 75 MG tablet 08/18/2019 12:00:00 AM EST 75 mg Oral active Take 1 tablet (75 mg total) by mouth daily [facility] 24 HR metoprolol succinate 25 MG Extende d Release Oral Tablet metoprolol succinate (TOPROL-XL) 25 MG 24 hr tablet metoprolol succinate (TOPROL-XL) 25 MG 24 hr tablet 03/17/2019 12:00:00 AM EDT 25 mg Oral abort ed Take 1 tablet (25 mg total) by mouth daily [facility] Spironolactone 25 MG Oral Tablet spironolactone (ALDAC TONE) 25 MG tablet spironolactone (ALDACTONE) 25 MG tablet 01/17/2019 12:00:00 AM EDT 25 mg Oral aborted Take 1 tablet (25 mg tota l) by mouth daily [facility] Finasteride 5 MG Oral Tablet finasteride (PROSCAR) 5 M G tablet finasteride (PROSCAR) 5 MG tablet 5 mg Oral aborted Ta ke 5 mg by mouth daily [facility] Ferrous Gluconate 239 (27 Fe) MG TABS 15235-26488 Oral aborted Take by mouth daily [facility] Calcitriol 0.92749 MG Oral Capsule calcitriol (ROCALTR OL) 0.25 MCG capsule calcitriol (ROCALTROL) 0.25 MCG capsule 0.25 ug Oral aborted Take 0.25 mcg by mouth daily [facility] Insurance Providers Payer name Policy type / Coverage type Policy ID Covered libertarian ID Covered libertarian's relationship to curry Policy Curry Plan Information MEDICARE [id number] SP [id number] AARP HE[employer] CARE OPTIONS [id number] SP [id number] INSURANCE COVID-19 [id number] MEDICARE [id number] INSURANCE COVID-19 COVID Mackenzie C OVID MEDICARE [id number] Mackenzie [id number] UHC [id number] Mackenzie [id number] AARP HEALTH CARE OPTIONS [id number] 18 [id number] MEDICARE PART A [place] [id number] 18 [id number] MEDICARE C [id number] S [id number] AARP O [id number] S [id number] MEDICARE PART A -O/P [id number] 18 [id number] AARP HEALTH CARE OPTIONS-O/P [id number] 18 [id number] MEDICARE [id number] Mackenzie [id number] A Medicare Part B Medicare Primary [id number] Self [id number] [employer] Healthcare Options Medigap Part B [id number] Self [id number] Medicare Part B Medicare Primary [id number] Self [id number] Aarp Medigap Part B [id number] Self [id number] Medicare Medicare Primary [id number] Self [id number] Aarp Supplemental Plan Medigap Part B [id number] Self [id number] Medicare Medicare Primary [id number] Self 11 [id number] Aarp Supplemental Plan Medigap Part B [id number] Self [id number] Medicare Medicare Primary [id number] Self 11 [id number] Aarp Medigap Part B [id number] Self [id number] Medicare Medicare Primary [id number] Self [id number] MEDICARE C [id number] S [id number] A [employer]arp Medigap Part B Self Medicare Medicare Primary Self [employer]arp Medigap Part B [place] Primary Self MEDICARE -O/P [id number] 18 [id number] MEDICARE [id number] SP [id number] A Medicare Medicare Primary Self [facility] [facility] Medigap Part B Self MEDICARE M [id number] S [id number] A [facility] O [id number] S [id number] Problems, Conditions, and Diagnoses Code Display Name Description Problem Type Effective Dates Data Source(s) 926818157 Renal dialysis Renal dialysis Problem 05/22/2020 12:00: 00 AM EST [facility] ([facility] 24781681 Ulcer of foot Ulcer of foot Problem 11/29/2019 12:00:00 AM EDT [facility] ([facility]) 04139203 Pain in limb Pain in limb Problem 11/29/2019 12:00:00 A M EDT [facility] ([facility]) 87274737 Atherosclerosis of arteries of the extre mities Atherosclerosis of arteries of the extremities Problem 11/29/2019 12:00:00 AM EDT MEDEN T ([facility]) 83619422 End-stage renal disease End-stage renal disease Proble m 07/23/2019 12:00:00 AM EST [facility] ([facility]) Z99.2 Dependence on renal dialysis Dependence on renal dialy sis Diagnosis 05/01/2020 12:44:00 PM EST [facility] N18.6 End stage renal disease End stage renal disease Diagno sis 05/01/2020 12:44:00 PM [facility] U07.1 COVID-19 COVID-19 Diagnosis 04/26/2020 11:13:22 AM ES T [facility] B01613 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 Non-pressure chronic ulcer of other part of unspecified foot with unspecified severity Diagnosis 03/27/2020 01:50:00 PM EDT [facility] V52280 Pain in left foot Pain in left foot Diagnosis 03/27/2020 01:50:00 PM EDT [facility] L35104 Pain in right foot Pain in right foot Diagnosis 11/2019 01:50:00 PM EDT [facility] 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 Diagnosis 03/27/2020 01:50: 00 PM EDT [facility] L90922 Unspecified atherosclerosis of [place] arteries of extremities, bilateral legs Unspecified atherosclerosis of [place] ar teries of extremities, bilateral legs Diagnosis 03/27/2020 01:50:00 PM EDT [facility] E78.5 Hyperlipidemia, unspecified Hyperlipidemia, unspecifie d Diagnosis 09/06/2019 03:10:29 PM EDT [facility] I10 Essential (primary) hypertension Essential (primary) h ypertension Diagnosis 09/06/2019 03:10:29 PM EDT [facility] I25.10 Atherosclerotic heart diseas e of [place] coronary artery without angina pectoris Atherosclerotic heart disease of [place] Diagnosis 09/06/2019 03:10:29 PM EDT [facility] R918 Other nonspecific abnormal finding of bisi ng field Other nonspecific abnormal finding of lung field Diagnosis 08/16/2019 11:40:00 AM [facility] I517 Cardiomegaly Cardiomegaly Diagnosis 08/16/2019 11:40:[address] [facility] R0602 Shortness of breath Shortness of breath Diagnosis 0 08/16/2019 11:40:[address] [facility] Surgeries/Procedures Procedure Description Date Indications Data Source(s) Capillary Blood Collection Finger, Heel, Ear Stick 05/22/2020 12:00:00 AM ANDREA JAMES ([facility] ) Revise Arteriovenous Fistula 05/01/2020 12:00:00 AM ADALBERTO JAMES ([facility]) ECG ROUTINE ECG W/LEAST 12 LDS TRCG ONLY W/O I&R ECG 12-LEAD Routine 04/26/2020 2:25 PM EST End stage renal disease 04/26/2020 07:25:08 PM EST End stage debby al disease [facility] End stage renal disease BLOOD COUNT COMPLETE AUTOMATED CBC Routine 0 2:10 PM EST End stage renal disease 04/26/2020 07:10:00 PM EST End stage debby al disease [facility] End stage renal disease HEMOGLOBIN GLYCOSYLATED A1C HEMOGLOBIN A1C Routine 04/26/2020 2:10 PM EST End stage renal disease 04/26/2020 07:10:00 PM EST End stage debby al disease [facility] End stage renal disease BASIC METABOLIC PANEL CALCIUM TOTAL BASIC METABOLIC PANEL Routi ne 04/26/2020 2:10 PM EST End stage renal disease 04/26/2020 07:10:00 PM EST End stage debby al disease [facility] End stage renal disease Capillary Blood Collection Finger, Heel, Ear Stick 02/21/2020 12:00:00 AM EDT [facility] ([facility] ) CYSTOURETHROSCOPY 02/01/2020 12:00:00 AM EDT [facility] ([facility]) US RETROPERITONEAL REAL TIME W/IMAGE LIMITED 0 12:00:00 AM EDT [facility] ([facility]) US RETROPERITONEAL REAL TIME W/IMAGE COMPLETE 02/01/20 20 12:00:00 AM EDT [facility] ([facility]) Duplex Scan Extracranial Arteries, Follow-Up Or Limited Stud y 01/17/2020 12:00:00 AM EDT [facility] ([facility]) Duplex Scan Extracranial Arteries, Follow-Up Or Limited Stud y 01/17/2020 12:00:00 AM EDT [facility] ([facility]) Duplex Scan Aorta/Inf Vena Cava/Iliac Vasc/Bypass GRFT LTD/F ol-Up 01/17/2020 12:00:00 AM EDT [facility] ([facility]) DUPLEX SCAN EXTRACRANIAL ART COMPL BI STUDY 01/17/2020 12:00:00 AM EDT [facility] ([facility]) Results ID Date Data Source [id number] 05/22/2020 02:17:00 PM EST [facility] ([facility] Name Value Range Interpretation Code Description Data Sil rce(s) Supporting Document(s) Hemoglobin A1c/Hemoglobin.total in Blood 4.9 % 4.40-6.10 [facility] ([facility] ID Date Data Source [id number] 05/04/2020 07:14:54 AM EST [facility]FORMATION[facility] Name Date of Age Gend*PT [id number] Kell Wallis Jr. 1940 79 years M SDCPT Location Admission Date/Time Visit ID [facility] 1244 --- --- EPI ID CSN Admitting Provider [id number] Gabriella Hernandez MD([id number]) [place] [address] OPERATIVE REPORT OPNAME: SHAN WARDHeladio KELL Paz#: [id number] #: [id number] ADMISSION DATE: 05/01/2020DOB: 1940 SEX: M PT TYPE: H SURACCT #: [id number] CARE PHYSICIAN: DELVIS MIDDLETONTE OF OPERATION: 05/01/2020PREOPERATIVE DIAGNOSIS:Aneurysmal dilation, left arm arteriovenous fistula.POSTOPERATIVE DIAGNOSIS:Aneurysmal dilation, left arm arteriovenous fistula.PROCEDURE PERFORMED:Revision of left arm AV fistula with primary repair of aneurysm.SURGEON:Gabriella Hernandez MD.SED MIDDLE SCHOOL TEACHER:GLORIA Munoz. Please note that there was no [...] presentthroughout the case.GABRIELLA HERNANDEZ, KACY/BHUPINDER Job #: [id number] DOC #: [id number]: [facility] Name Value Range Interpretation Code Description Data Sil rce(s) Supporting Document(s) ID Date Data Source [id number] 05/01/2020 05:39:12 PM EST [facility] Name Value Range Interpretation Code Description Data Sil rce(s) Supporting Document(s) POC NOVA GLU 86 mg/dL (70-99) [facility] [place] PERFORMED BY [facility]ICAL STAFF ID Date Data Source [id number] 05/01/2020 04:08:42 PM EST [facility] INFORMATIONPatient MRN Name Date of Age Gend*PT [id number] Kell Wallis Jr. 1940 79 years M SDCPT Location Admission Date[facility] --- Gabriella Hernandez MD([id number]) EPI ID CSN Admitting Provider [id number] Gabriella Hernandez MD([id number])H&P reviewed. The patient was examined and there are no changes to the H&P.Gabriella Hernandez MD4:08 PM Name Value Range Interpretation Code Description Data Sil rce(s) Supporting Document(s) ID Date Data Source [id number] 05/01/2020 01:33:16 PM EST [facility] Name Value Range Interpretation Code Description Data Sil rce(s) Supporting Document(s) POC GLU 62 MG/DL (70-99) L [facility] PERFORMED BY [facility] STAFF ID Date Data Source [id number] 05/01/2020 01:33:16 PM EST [facility] Name Value Range Interpretation Code Description Data Sil rce(s) Supporting Document(s) POC POTASSIUM 4.5 MMOL/L (3.6-5.2) [facility] PERFORMED BY [facility] STAFF ID Date Data Source [id number] 05/01/2020 01:33:16 PM EST [facility] Name Value Range Interpretation Code Description Data Sil rce(s) Supporting Document(s) POC HCT 32 % (41.0-53.0) L [facility] STAFF ID Date Data Source [id number] 04/26/2020 02:29:42 PM EST [facility] Name Value Range Interpretation Code Description Data Sil rce(s) Supporting Document(s) EKG [facility] [id number] jb2 [file] RETAIL BUSINESS DEVELOPMENT MANAGER/[id number] [file] MR+health care marketing specialist/[id number]//cNY3E+/MYZc+kvu2IKn [file] [id number] ID Date Data Source [id number] 04/26/2020 07:31:57 PM EST [facility] Name Value Range Interpretation Code Description Data Sil rce(s) Supporting Document(s) HEMOGLOBIN A1C @ 5.3 % (4.0-6.0) [facility] Performed using Siemens [place] immunoassa y.Care must be taken when interpreting [id number] in patients with a hemoglobin variantor decreased erythrocyte lifespan. Values 5.7 - 6.4% suggest prediabetes.Values >=6.5% are diagnostic for diabetes.REFERENCE: DIABETES CARE 2018: 41(S13-S27). EST AVERAGE GLUCOSE 105 mg/dL [facility] ID Date Data Source [id number] 04/26/2020 07:29:28 PM EST [facility] Name Value Range Interpretation Code Description Data Sil rce(s) Supporting Document(s) SODIUM 140 mmol/L (136-145) [facility] POTASSIUM 5.6 mmol/L (3.6-5.2) H [facility] CHLORIDE 100 mmol/L (100-108) [facility] CO2 30 mmol/L (22-31) [facility] ANION GAP 10 mmol/L (7-16) [facility] UREA NITROGEN 65 mg/dL (7-24) [facility] CREATININE 7.82 mg/dL (0.80-1.30) HH [facility] RESULT(S) CALLED TO AND READ BACK BYDR Masoud MARES AT [phone] ON [id number] AT [id number] [place] [id number]. BUN/CREAT RATIO 8.3 RATIO (10.0-20.0) L [facility] GLUCOSE 82 mg/dL (70-99) [facility] CALCIUM 9.4 mg/dL (8.4-10.2) [facility] GFR 7 ml/min/1.73m2 (>59) L [facility] GFR ( AMER) 8 [...] for medication dosing. ID Date Data Source [id number] 04/26/2020 06:36:02 PM EST [facility] Name Value Range Interpretation Code Description Data Sil rce(s) Supporting Document(s) WBC 6.6 10*3/uL (4.1-11.0) [facility] RBC 3.35 10*6/uL (4.60-6.10) L [facility] HGB 11.0 g/dL (13.5-18.0) L [facility] HCT 33.7 % (41.0-53.0) [facility] MCV 100.6 fL (80.0-95.0) [facility] MCH 32.9 pg (27.0-32.0) [facility] MCHC 32.7 g/dL (32.0-36.0) [facility] RDW 17.5 % (10.5-14.5) [facility] PLT 94 10*3/uL (150-450) L [facility] MPV 9.6 fL (7.1-10.7) [facility] ID Date Data Source [id number] 04/26/2020 02:07:57 PM EST [facility] INFORMATIONPatient MRN Name Date of Age Gend*PT [id number] Kell Wallis Jr. 1940 79 years M OPPT Location Admission Date/Time Visit ID Attending Provider --- --- --- Gabriella Hernandez MD([id number]) EPI ID CSN Admitting Provider [id number] ---OUTPATIENT / OBSERVATIONAL SURGICAL OR INVASIVE PROCEDUREName: Kell Wallis Jr. : 1940 Sex: male Care Provider: DELVIS VERONICA [facility] Physician: Dr. Hernandez.HISTORY OF PRESENT ILLNESS: 79 years old white male with a history of end-stagerenal disease followed by his websphere commerce consultant, Dr. Mullen. Patient had left AVfistula insertion [...] AORTA/ILIAC ARTERY ;Surgeon: Giuseppe Espinosa MD; Location: [facility] [place]; Service: Vascular;Laterality: N/A; AV FISTULA PLACEMENT Left 02/19/2015 Procedure: INSERT ARTERIAL VENOUS FISTULA UPPER EXTREMITY LEFT ; Surgeon:Gabriella Hernandez MD; Location: [facility] [place]; Service: Vascular; Laterality:Left; CORONARY ANGIOPLASTY WITH STENT [...] a day vitamin D, Ergocalciferol, 1.25 MG (19838 UT) CAPS Take 1 capsule by mouthonce [...] thyromegaly. No carotid bruits.MENTAL / NEUROLOGICAL STATUS: [id number]: Clear to auscultation. No wheezes, rhonchi or crackles.HEART: Rate rhythm regular. S1, S2. No murmur, rub or gallop.ABDOMEN: Bowel sounds positive times four. Soft, non tender. No reboundtenderness. No hepatosplenomegaly. Negative CVAT.EXTREMITIES: Pulses are diminished. +1 edema.OPERATIVE SITE: Without rash.CODE STATUS: Full Code per the patient.Steroid use: He denies any oral steroid therapy for three weeks or greaterwithin the last 3 months.[facility] :: 6/10 Moderately Frail (need [...] parts of this document, were dictated using [employer] speaking software. A reasonable attempt at proofreading has beenmade to minimize errors. Please call with any questions or corrections.* Name Value Range Interpretation Code Description Data Sil rce(s) Supporting Document(s) ID Date Data Source [id number] 04/26/2020 11:00:00 AM EST [facility] Name Value Range Interpretation Code Description Data [facility] rce(s) Supporting Document(s) SARS coronavirus 2 RNA [facility] This lab was ordered by [facility] and reported by [facility]. ID Date Data Source [id number] 04/27/2020 12:09:22 PM EST [facility] Name Value Range Interpretation Code Description Data [facility] rce(s) Supporting Document(s) SARS-COV-2 TOSIN [facility] Not DetectedReference range: Not Detecte d Testing was performed using the rita(R) SARS-CoV-2 test. This nucleic acid amplification test was developed and its performance characteristics determined by [employer]. Nucleic acid amplification tests include PCR and [...] result in this assay. Performed At: [facility] [address] [id number] Dami Meredith MD Ph:[phone] ID Date Data Source [id number] 02/21/2020 01:37:00 PM EDT [facility] ([facility] Name Value Range Interpretation Code Description Data Sil rce(s) Supporting Document(s) Hemoglobin A1c/Hemoglobin.total in Blood 5.3 % 4.40-6.10 [facility] ([facility] ID Date Data Source [id number] 01/17/2020 12:53:00 PM EDT [facility] ([facility]) Name Value Range Interpretation Code Description Data Sil rce(s) Supporting Document(s) Abdominal Aortic Aneurysm Ultrasound Laboratory test result [facility] ([facility]) Carotid Ultrasound Bilateral Laboratory test result [facility] ([facility]) ID Date Data Source [id number] 12/20/2019 10:39:04 AM EDT [facility] INFORMATIONPatient MRN Name Date of Age Gend*PT [id number] Shan Kell Bañuelos Jr. 1940 79 years M ---PT Location Admission Date/Time Visit ID Attending Provider --- --- --- --- EPI ID CSN Admitting Provider [id number] ---Cardiology History and PhysicalName: Kell Wallis Jr. Gender: maleDate of : 1940 Age: 79 yearsPrimary Care Provider / Referring Physician: DELVIS VERONICA, [facility] Telemedicine VisitPatient was identified by name and date of .Verbal consent was obtained from the patient for this telemedicine visit.Patient is aware of the risks, limitations, and benefits of a telemedicinevisit.This telemedicine assessment was conducted remotely with the assistance ofBrightfishication technology: Telephone Only Codes 37315: 21 -30 minutes of medicaldiscussion: Telephone OnlyCurrent HistoryChief Complaint: This is a Telemedicine visitHPI:This patient is a 79 years male with the following updated problem list:1. Known coronary disease with multiple stents and ultimately CABG x3 [id number]. Cardiac catheterization 07/18/2019 PCI/CHAI LAD. EF 40%.2. 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 A reasonable attempt at proofreading has been made to minimize errors.Please call with any questions or corrections. Name Value Range Interpretation Code Description Data Sil rce(s) Supporting Document(s) ID Date Data Source [id number] 11/24/2019 11:32:17 AM EDT [facility] INFORMATIONPatient MRN Name Date of Age Gend*PT [id number] Kell Wallis Jr. 1940 79 years M ---PT Location Admission Date/Time Visit ID Attending Provider --- --- --- --- EPI ID CSN Admitting Provider [id number] ---Cardiology History and PhysicalName: Kell Wallis Jr. Gender: maleDate of : 1940 Age: 79 yearsPrimary Care Provider / Referring Physician: DELVIS VERONICA, [facility] [place] Telemedicine VisitPatient was identified by name and date of .Verbal consent was obtained from the patient for this telemedicine visit.Patient is aware of the risks, limitations, and benefits of a telemedicinevisit.This telemedicine assessment was conducted remotely with the assistance ofBrightfishication technology: Telephone Only Codes 90361: 21 -30 minutes of medicaldiscussion: Telephone OnlyCurrent [...] AORTA/ILIAC ARTERY ;Surgeon: Giuseppe Espinosa MD; Location: [facility]; Service: Vascular;Laterality: N/A; AV FISTULA PLACEMENT Left 02/19/2015 Procedure: INSERT ARTERIAL VENOUS FISTULA UPPER EXTREMITY LEFT ; Surgeon:Gabriella Hernandez MD; Location: [facility]; Service: Vascular; Laterality:Left; CORONARY ARTERY BYPASS [...] file Gets together: Not on file Attends yarsanism service: Not on file Active member of [...] Rfl: 3 vitamin D, Ergocalciferol, 1.25 MG (72263 UT) CAPS, Take 1 capsule by mouthonce [...] parts of this document, were dictated using [employer]. A reasonable attempt at proofreading has been made to minimize errors.Please call with any questions or corrections. Name Value Range Interpretation Code Description Data Sil rce(s) Supporting Document(s) ID Date Data Source [id number] 11/18/2019 11:16:00 AM EDT [facility] AssociatesEXAM: XRAY FOOT COMPLETE RIGHTCLINICAL HISTORY: [...] rce(s) Supporting Document(s) ID Date Data Source [id number] 11/18/2019 11:15:00 AM EDT [facility] COMPLETE LEFTCLINICAL HISTORY: Osteomyelitis. Bilateral [...] rce(s) Supporting Document(s) ID Date Data Source [id number] 11/08/2019 02:39:00 PM EDT [facility] ([facility] Name Value Range Interpretation Code Description Data Sil rce(s) Supporting Document(s) Virus identified in Unspecified specimen by Culture Laboratory test result [facility] ([facility] SRC: CERVIX [id number] ID Date Data Source [id number] 11/08/2019 02:37:00 PM EDT [facility] ([facility] Name Value Range Interpretation Code Description Data Sil rce(s) Supporting Document(s) Bacteria identified in Unspecified specimen by Aerobe culture Laboratory test result [facility] ([facility] SRC: BACK Bacteria identified in Unspecified specimen by Culture Laborator y test result [facility] ([facility] ) SRC: BACK ID Date Data Source [id number] 11/08/2019 02:37:00 PM EDT [facility] ([facility]) Name Value Range Interpretation Code Description Data Sil rce(s) Supporting Document(s) Bacteria identified in Unspecified specimen by Aerobe culture Laboratory test result [facility] ([facility] Miranda Genao) ID Date Data Source [id number] 11/02/2019 12:00:00 AM EDT [facility] Gabriella Hernandez MD Patient Name: MARINA WALLIS [address] Date of : 1940[place] vel[place] [address] Date of Exam: 11/02/2019#: Fax: [phone] EXAM: [...] proximal anterior tibial arteries bilaterally.Accredited by the [employer] in [place].LEXUS Bolanos/Cassie lopez for referring KELL WALLIS to our office. Electronically Signed - VICENTA LONG MD 11/04/19 12:56 Name Value Range Interpretation Code Description Data Sil rce(s) Supporting Document(s) ID Date Data Source [id number] 09/06/2019 04:14:36 PM EDT [facility]PAT[facility] INFORMATIONPatient MRN Name Date of Age Gend*PT [id number] Kell Wallis Jr. 1940 79 years M ---PT Location Admission Date/Time Visit ID Attending Provider --- --- --- --- EPI ID CSN Admitting Provider [id number] ---Cardiology Office VisitSubjectiveChief Complaint: Here for follow-up [...] DeniesPND or orthopnea. [facility] [place] [facility] with [...] AORTA/ILIAC ARTERY ;Surgeon: Giuseppe Espinosa MD; Location: [facility]; Service: Vascular;Laterality: N/A; AV FISTULA PLACEMENT Left 02/19/2015 Procedure: INSERT ARTERIAL VENOUS FISTULA UPPER EXTREMITY LEFT ; Surgeon:Gabriella Hernandez MD; Location: [facility]; Service: Vascular; Laterality:Left; CORONARY ARTERY BYPASS [...] file Gets together: Not on file Attends yarsanism service: Not on file Active member of [...] tablet 3 vitamin D, Ergocalciferol, 1.25 MG (67862 UT) CAPS Take 1 capsule by mouthonce [...] history of previous bypass. Recent cardiaccatheterization in [place] with stenting to the LAD, he is [...] rce(s) Supporting Document(s) ID Date Data Source [id number] 08/17/2019 08:57:00 AM EST [facility] [address] [place] [address] PHONE: [phone] FAX: [phone] Name .................. : SHAN Bañuelos Acct Number.................. : [id number] ROOM. ................. : Number ................... : [id number] Stay type ............. : O/P Discharge Date......... ... : 08/16/19 Admit Date ......... : 08/16/19 Admit Phys .................... : CASSANDRAFELIPA SHEA Date of ....... : 1940 Family Phys ................... : JEREMÍAS HE Phone . ................. : [phone] Age ................................ : 79 Film# .................. .:[id number] Sex ................................. : M Unsigned transcriptions are preliminary reports and do not represent a medical or legal document CHEST 2 VIEWS [id number] COMPLETE:08/16/19 16:53 ABELINO [id number] (REASON FOR CHEST: SOB CHEST X-RAY: PA [...] Patient has never smoked [facility] ([facility]) Alcohol intake 04/26/2020 12:00:00 AM EST Yes completed [facility] Smoking 04/26/2020 12:00:00 AM EST Never smoker completed Never s moker [facility] Smoking 03/06/2020 12:00:00 AM EDT Never Smoked A Pipe complet ed Never Smoked A Pipe [facility] ([facility]) Smoking 02/01/2020 12:00:00 AM EDT Never Smoked Cigarettes com pleted Never Smoked Cigarettes [facility] ([facility] [place]) Vital Signs ID Date Data Source UNK Name Value Range Interpretation Code Description Data Source(s) Oxygen saturation in Arterial blood by Pulse oximetry 97 % 97 % [facility] ([facility] Body mass index (BMI) [Ratio] 28.4 kg/m2 28.4 k g/m2 [facility] ([facility] Cast[place] body weight 166 [lb_av] 166 [lb_av] [facility] T ([facility] Body weight 198.00 [lb_av] 198.00 [lb_av] [facility] T ([facility] Body height 70 [in_i] 70 [in_i] [facility] ([facility] 5'10" Respiratory rate 16 /min 16 /min [facility] ( [facility] Heart rate 70 /min 70 /min [facility] ([facility] Body temperature 98.4 [degF] 98.4 [degF] [facility] ([facility] Diastolic blood pressure 68 mm[Hg] 68 mm[Hg] [facility] ([facility] Systolic blood pressure 118 mm[Hg] 118 mm[Hg] M [facility] ([facility] Body mass index (BMI) [...] by Pulse oximetry 97 % 97 % [facility] Body mass index (BMI) [Ratio] 27.98 kg/m2 27.98 kg/m2 [facility] Body weight 88.451 kg 88.451 kg [facility] Body height 177.8 cm 177.8 cm [facility] Heart rate 62 /min 62 /min [facility] Diastolic blood pressure 69 mm[Hg] 69 mm[Hg] [facility] Systolic blood pressure 131 mm[Hg] 131 mm[Hg] [facility] Body weight 88.452 kg 88.452 kg [facility] Body weight 195.00 [lb_av] 195.00 [lb_av] [facility] T ([facility]) Heart rate 70 /min 70 /min [facility] ([facility] Diastolic blood pressure 80 mm[Hg] 80 mm[Hg] [facility] ([facility]) Systolic blood pressure 130 mm[Hg] 130 mm[Hg] M [facility] ([facility]) Oxygen saturation in Arterial blood by Pulse oximetry 94 % 94 % [facility] ([facility] Body mass index (BMI) [Ratio] 28.4 kg/m2 28.4 k g/m2 [facility] ([facility] [place] body weight 166 [lb_av] 166 [lb_av] [facility] ([facility] Body weight 198.00 [lb_av] 198.00 [lb_av] [facility] ([facility] Body height 70 [in_i] 70 [in_i] [facility] ([facility] 5'10" Respiratory rate 16 /min 16 /min [facility] ( [facility] Heart rate 70 /min 70 /min [facility] ([facility] Body temperature 98.0 [degF] 98.0 [degF] [facility] ([facility] Diastolic blood pressure 74 mm[Hg] 74 mm[Hg] [facility] ([facility] Systolic blood pressure 118 mm[Hg] 118 mm[Hg] M [facility] ([facility] Heart rate 67 /min 67 /min [facility] [place] Diastolic blood pressure 70 mm[Hg] 70 mm[Hg] [facility] ([facility]) Systolic blood pressure 115 mm[Hg] 115 mm[Hg] M [facility] ([facility]) Body mass index (BMI) [Ratio] 33.0 kg/m2 33.0 k g/m2 [facility] ([facility]) Body weight 104.328 kg 104.328 kg [facility] Body weight 230.00 [lb_av] 230.00 [lb_av] [facility] T ([facility]) Body height 70 [in_i] 70 [in_i] [facility] ([facility]) 5'10" Oxygen saturation in Arterial blood by [...] Body weight 99.338 kg 99.338 kg [facility] ([facility], ) Body mass index (BMI) [Ratio] 31.4 kg/m2 31.4 k g/m2 [facility] ([facility]) Body weight 219.00 [lb_av] 219.00 [lb_av] [facility] T ([facility]) Body height 70 [in_i] 70 [in_i] [facility] ([facility]) 5'10" Diastolic blood pressure 70 mm[Hg] 70 mm[Hg] [facility] ([facility]) Systolic blood pressure 119 mm[Hg] 119 mm[Hg] M [facility] ([facility]) Oxygen saturation in Arterial blood by Pulse oximetry 97 % 97 % [facility] ([facility] Body height 70 [in_i] 70 [in_i] [facility] ([facility] 5'10" Respiratory rate 14 /min 14 /min [facility] ( [facility] Heart rate 74 /min 74 /min [facility] ([facility] Body temperature 97.3 [degF] 97.3 [degF] [facility] ([facility] Diastolic blood pressure 80 mm[Hg] 80 mm[Hg] [facility] ([facility] Systolic blood pressure 128 mm[Hg] 128 mm[Hg] M [facility] ([facility] Body mass index (BMI) [Ratio] 31.1 kg/m2 31.1 k g/m2 [facility] ([facility]) Body weight 98.431 kg 98.431 kg [...] 124 mm[Hg] M [facility] ([facility]) Oxygen saturation in Arterial blood by Pulse oximetry 97 % 97 % [facility] ([facility] (AT Rest), (Room Air) Body height 70 [in_i] 70 [in_i] [facility] ([facility] 5'10" Respiratory rate 18 /min 18 /min [facility] ( [facility] Heart rate 75 /min 75 /min [facility] ([facility] Body temperature 98.2 [degF] 98.2 [degF] [facility] ([facility] Diastolic blood pressure 60 mm[Hg] 60 mm[Hg] [facility] ([facility] Systolic blood pressure 142 mm[Hg] 142 mm[Hg] M [facility] ([facility] Oxygen saturation in Arterial blood by Pulse oximetry 97 % 97 % [facility] ([facility] (AT Rest), (Room Air) Body height 70 [in_i] 70 [in_i] [facility] ([facility] 5'10" Respiratory rate 19 /min 19 /min [facility] ( [facility] Heart rate 66 /min 66 /min [facility] ([facility] Body temperature 99.2 [degF] 99.2 [degF] [facility] ([facility] Diastolic blood pressure 70 mm[Hg] 70 mm[Hg] [facility] ([facility] Systolic blood pressure 132 mm[Hg] 132 mm[Hg] M [facility] ([facility] Body mass index (BMI) [Ratio] 31.1 kg/m2 31.1 k g/m2 [facility] ([facility]) Oxygen saturation in Arterial blood by [...] [degF] 97.0 [degF] [facility] ([facility]) Heart rate 75 /min 75 /min [facility] Diastolic blood pressure 74 mm[Hg] 74 mm[Hg] [facility] ([facility]) Systolic blood pressure 135 mm[Hg] 135 mm[Hg] M [facility] ([facility]) Patient Treatment Plan of Care Planned Activity Planned Date Details Description Data Source (s) Rosuvastatin calcium 10 MG Oral Tablet 01/11/2020 12:00:00 AM EDT [facility] 24 HR metoprolol succinate 50 MG Extended Release Oral Tablet 09/19/2019 12:00:00 AM EDT [facility] clopidogrel 75 MG Oral Tablet 08/18/2019 12:00:00 AM EST [facility] 24 HR metoprolol succinate 25 MG Extended Release Oral Tablet 03/17/2019 12:00:00 AM EDT [facility] Spironolactone 25 MG Oral Tablet 01/17/2019 12:00:00 AM EDT [facility] Ferrous Gluconate 239 (27 Fe) MG TABS [facility] Finasteride 5 MG Oral Tablet [facility] Calcitriol 0.49591 MG Oral Capsule [facility]
[2020-07-11 18:55] LABS: INR 1.37; PROTHROMBIN TIME 17.2 SECONDS (12.5-14.3)
--- OUTSIDE RECORDS SUMMARY | 2020-07-11 19:14 | CCD ---
Author Author [facility] Organization [facility] Address Unknown Phone Unavailable Care Team Providers Care Pelt Inspector Name Role Phone Cassandra, Bossman Lopez MD [...] Unavailable Unavailable Awilda WOLF MD Unavailable Unavailable Aiwlda WOLF MD Unavailable Unavailable Awilda WOLF MD Unavailable Unavailable Awilda WOLF MD Unavailable Unavailable Awilda WOLF MD Unavailable Unavailable Awilda WOLF MD Unavailable Unavailable Awilda WOLF MD Unavailable Unavailable Awilda WOLF MD Unavailable Unavailable Awilda WOLF MD Unavailable Unavailable Awilda WOLF MD Unavailable Unavailable LAMEBRT, J GENO DPM PC Unavailable Unavailable LAMBERT, [...] Unavailable Unavailable Antonio, Nathalie PA Unavailable Unavailable Antonoi, Nathalie PA Unavailable Unavailable Antonio, Nathalie PA [...] Unavailable SHANAEEdda MD Unavailable Unavailable SHANAE, Edda BUSTILLSO MD Unavailable Unavailable SHANAE, Edda BUSTILLOS MD [...] Unavailable SHANAEEdda MD Unavailable Unavailable María CHOPRA LEARNING OPERATIONS SPECIALIST Unavailable Unavailable María CHOPRA LEARNING OPERATIONS SPECIALIST Unavailable Unavailable María CHOPRA LEARNING OPERATIONS SPECIALIST Unavailable Unavailable María CHOPRA LEARNING OPERATIONS SPECIALIST Unavailable Unavailable María CHOPRA LEARNING OPERATIONS SPECIALIST Unavailable Unavailable María CHOPRA LEARNING OPERATIONS SPECIALIST Unavailable Unavailable María CHOPRA LEARNING OPERATIONS SPECIALIST Unavailable Unavailable María CHOPRA LEARNING OPERATIONS SPECIALIST Unavailable Unavailable María CHOPRA LEARNING OPERATIONS SPECIALIST Unavailable Unavailable María CHOPRA LEARNING OPERATIONS SPECIALIST Unavailable Unavailable María CHOPRA LEARNING OPERATIONS SPECIALIST Unavailable Unavailable CHOPRAMaría Stroud LEARNING OPERATIONS SPECIALIST Unavailable Unavailable CHOPRA, M ALESSIA LEARNING OPERATIONS SPECIALIST Unavailable Unavailable CHOPRA, M ALESSIA LEARNING OPERATIONS SPECIALIST Unavailable Unavailable CHOPRA, M ALESSIA LEARNING OPERATIONS SPECIALIST Unavailable Unavailable CHOPRA, M ALESSIA LEARNING OPERATIONS SPECIALIST Unavailable Unavailable CHOPRA, M ALESSIA LEARNING OPERATIONS SPECIALIST Unavailable Unavailable CHOPRA, M ALESSIA LEARNING OPERATIONS SPECIALIST Unavailable Unavailable CHOPRA, M ALESSIA LEARNING OPERATIONS SPECIALIST Unavailable Unavailable CHOPRA, M ALESSIA LEARNING OPERATIONS SPECIALIST Unavailable Unavailable CHOPRA, M ALESSIA LEARNING OPERATIONS SPECIALIST Unavailable Unavailable CHOPRA, M ALESSIA LEARNING OPERATIONS SPECIALIST Unavailable Unavailable CHOPRA, M ALESSIA LEARNING OPERATIONS SPECIALIST Unavailable Unavailable CHOPRA, M ALESSIA LEARNING OPERATIONS SPECIALIST Unavailable Unavailable CHOPRA, M ALESSIA LEARNING OPERATIONS SPECIALIST Unavailable Unavailable CHOPRA, M ALESSIA LEARNING OPERATIONS SPECIALIST Unavailable Unavailable CHOPRA, M ALESSIA LEARNING OPERATIONS SPECIALIST Unavailable Unavailable CHOPRA, M ALESSIA LEARNING OPERATIONS SPECIALIST Unavailable Unavailable CHOPRA, M ALESSIA LEARNING OPERATIONS SPECIALIST Unavailable Unavailable CHOPRA, M ALESSIA LEARNING OPERATIONS SPECIALIST Unavailable Unavailable CHOPRA, M ALESSIA LEARNING OPERATIONS SPECIALIST Unavailable Unavailable CHOPRA, M ALESSIA LEARNING OPERATIONS SPECIALIST Unavailable Unavailable CHOPRA, M ALESSIA LEARNING OPERATIONS SPECIALIST Unavailable Unavailable CHOPRA, M ALESSIA LEARNING OPERATIONS SPECIALIST Unavailable Unavailable CHOPRA, M ALESSIA LEARNING OPERATIONS SPECIALIST Unavailable Unavailable CHOPRA, M ALESSIA LEARNING OPERATIONS SPECIALIST Unavailable Unavailable CHOPRA, M ALESSIA LEARNING OPERATIONS SPECIALIST Unavailable Unavailable CHOPRA, M ALESSIA LEARNING OPERATIONS SPECIALIST Unavailable Unavailable CHOPRA, M ALESSIA LEARNING OPERATIONS SPECIALIST Unavailable Unavailable CHOPRA, M ALESSIA LEARNING OPERATIONS SPECIALIST Unavailable Unavailable CHOPRA, M ALESSIA LEARNING OPERATIONS SPECIALIST Unavailable Unavailable CHOPRA, M ALESSIA LEARNING OPERATIONS SPECIALIST Unavailable Unavailable CHOPRA, M ALESSIA LEARNING OPERATIONS SPECIALIST Unavailable Unavailable CHOPRA, M ALESSIA LEARNING OPERATIONS SPECIALIST Unavailable Unavailable CHOPRA, M ALESSIA LEARNING OPERATIONS SPECIALIST Unavailable Unavailable CHOPRA, M ALESSIA LEARNING OPERATIONS SPECIALIST Unavailable Unavailable CHOPRA, M ALESSIA LEARNING OPERATIONS SPECIALIST Unavailable Unavailable CHOPRA, M ALESSIA LEARNING OPERATIONS SPECIALIST Unavailable Unavailable CHOPRA, M ALESSIA LEARNING OPERATIONS SPECIALIST Unavailable Unavailable CHOPRA, M ALESSIA LEARNING OPERATIONS SPECIALIST Unavailable Unavailable CHOPRA, M ALESSIA LEARNING OPERATIONS SPECIALIST Unavailable Unavailable CHOPRA, M ALESSIA LEARNING OPERATIONS SPECIALIST Unavailable Unavailable CHOPRA, M ALESSIA LEARNING OPERATIONS SPECIALIST Unavailable Unavailable CHOPRA, M ALESSIA LEARNING OPERATIONS SPECIALIST Unavailable Unavailable CHOPRA, M ALESSIA LEARNING OPERATIONS SPECIALIST Unavailable Unavailable CHOPRA, M ALESSIA LEARNING OPERATIONS SPECIALIST Unavailable Unavailable CHOPRA, M ALESSIA LEARNING OPERATIONS SPECIALIST Unavailable Unavailable CHOPRA, M ALESSIA LEARNING OPERATIONS SPECIALIST Unavailable Unavailable Sweet, Gambee Lala PA-C Unavailable [...] is protected by Article 27-F of the [facility] Public Health law. If you continue you may have access to information: Regarding HIV / AIDS; Provided by facilities licensed or operated by the [facility] Office of Mental Health; or Provided by the [facility] Office for People With Developmental Disabilities. If such information is present, then the following [facility] mandated warning applies: This information has [...] law may result in a fine or group home sentence or both. A general authorization for the release of medical or other information is NOT sufficient authorization for further disc losure. Allergies and Adverse Reactions Type Description Substance Reaction Status Data Source(s ) CLASS CONTRAST MEDIA, IODINE RELATED CONTRAST MEDIA, IODINE RELA SANDER [facility] Family History Family Member Name Family Member Gender Family Member Status Date o f Status Description Data Source(s) Unknown Male Problem [facility] ([facility] Unknown Unknown Problem [facility] ([facility] Unknown Female Problem [facility] ([facility] ) Encounters Encounter Providers Location Date Indications Data Source(s ) Outpatient Attender: Delvis Veronica [place] [facility] 05/22/2020 12:30:0 0 PM EST [facility] ([facility] Office Visit Attender: Nathalie CASTRO Main Office 05/10/2020 12:15:00 PM EST [facility] ([facility]) Outpatient Attender: Gabriella Hernandez MDReferrer: Gabriella cooper MD MOB-MOB.PAT 04/26/2020 12:51:28 PM EST - 04/26/2020 02:30:19 PM [facility] Outpatient Referrer: Gabriella ANDREWS.PAT 04/26 11:13:22 AM EST - 04/26/2020 11:13:36 AM EST [facility] SDC Attender: Gabriella Hernandez MDAdmitter: Gabriella cooper MD ES1-OR 04/25/2020 10:38:43 AM EST - 05/01/2020 07:03:00 PM [facility] Patient discharged. Outpatient Attender: Gabriella Hernandez MD Main Office 04/18/2020 02:00:00 PM EDT [facility] ([facility]) Outpatient Attender: GENO VERDIN DPM PCConsultant: Mary Veronica 03/27/2020 01:50:00 PM EDT - [facility] GENO VERDIN DPM PCConsultant: Mary Veronica 03/06/2020 09:48:00 AM EDT - 03/06/2020 09:48:00 AM [facility] Outpatient Attender: Delvis Veronica [place] [facility] 02/21/2020 01:00:0 0 PM EDT [facility] ([facility] Outpatient Attender: GENO VERDIN DPM PCConsultant: Calixtokarina chu Jeremías 02/14/2020 09:38:00 AM EDT - 02/14/2020 09:38:00 AM [facility] Outpatient Attender: VASYL Montiel/ A.M.P. Urology 02/01/2020 01:00:00 PM EDT [facility] ([facility]) Outpatient Attender: GENO VERDIN DPM PCConsultant: Calixtokarina chu Jeremías 01/25/2020 08:41:00 AM EDT - 01/25/2020 08:41:00 AM [facility] Outpatient Attender: GENO VERDIN DPM PCConsultant: Mary Veronica 01/03/2020 01:51:00 PM EDT - 01/03/2020 01:51:00 PM EDT [facility] Outpatient Attender: APOLLO JOLLY MD BF-BF 12/20/2019 07:29:14 AM EDT [facility] Outpatient Attender: GENO VERDIN DPM PCConsultant: Mary Veronica 12/13/2019 01:33:00 PM EDT - 12/13/2019 01:33:00 PM EDT [facility] Outpatient Attender: GENO VERDIN DPM PCConsultant: Mary Veronica 11/29/2019 10:12:00 AM EDT - 11/29/2019 10:12:00 AM EDT [facility] Outpatient Attender: AUDIE MENDEZ MD [place] [facility] 09/2019 01:00:00 PM EDT [facility] ([facility] Outpatient Attender: APOLLO JOLLY MD BF-BF 11/24/2019 07:45:57 AM EDT [facility] Outpatient Referrer: Gabriella Hernandez MD 11/18/2019 10:57:50 AM EDT [facility] Outpatient Attender: Gabriella Hernandez MD Main Office 11/18/2019 09:00:00 AM EDT [facility] ([facility]) Outpatient Attender: Delvis Veronica [place] [facility] 11/15/2019 01:30:0 0 PM EDT [facility] ([facility] Outpatient Attender: ALESSIA CHOPRA NP [place] [facility] 11/07 02:00:00 PM EDT [facility] ([facility] Outpatient Referrer: CIELO HERNANDEZ 11/02/2019 11:21:00 AM EDT [facility] Outpatient Referrer: CIELO HERNANDEZ 11/02/2019 11:20:00 AM EDT [facility] Outpatient Referrer: CIELO HERNANDEZ 10/27/2019 03:52:00 PM EDT [facility] Outpatient Attender: Lala Figueroa PA-C BF-BF.CVS 12:00:00 AM EDT - 09/06/2019 03:41:26 PM EDT [facility] Outpatient Attender: John Cassandra MDConsultant: Delvis Kemar almeida 08/16/2019 11:40:00 AM EST - 08/16/2019 12:40:00 PM EST [facility] Outpatient Attender: Gabriella Hernandez MD Main Office 08/05/2019 10:00:00 AM EST [facility] ([facility]) Immunizations Vaccine Date Status Description Data Source(s) New in 2012. IIV4 05/22/2020 12:51:00 PM EST completed [facility] ([facility] Medications Medication Brand Name Start Date Product Form Dose Route Admi nistrative Instructions Pharmacy Instructions Status Indications Reaction Description Data Source(s) Pentoxifylline 400 MG Extended Release Oral Tablet Pentoxify lline ER 03/06/2020 12:00:00 AM EDT ORAL active M EDENT ([facility]) Mupirocin 0.02 MG/MG Topical Ointment Mupirocin 02/22/2020 12:00:00 AM EDT completed [facility] Rosuvastatin calcium 10 MG Oral Tablet rosuvastatin (C RESTOR) 10 MG tablet rosuvastatin (CRESTOR) 10 MG tablet 01/11/2020 12:00:00 AM EDT active TAKE 1 TABLET BY MOUTH THREE TIMES A WEE K. THURSDAY, THURSDAY, AND THURSDAY. [facility] Pentoxifylline 400 MG Extended Release Oral Tablet Pentoxify lline ER 11/29/2019 12:00:00 AM EDT ORAL completed [facility] ([facility]) Doxycycline Monohydrate 100 MG Oral Capsule Doxycycline Ocean hydrate 11/08/2019 12:00:00 AM EDT ORAL completed [facility] ([facility] mometasone furoate 1 MG/ML Topical Cream Mometasone Furoate 11/08/2019 12:00:00 AM EDT active [facility] ([facility] Eucrisa Eucrisa 11/08/2019 12:00:00 AM EDT complet ed [facility] ([facility] apixaban 2.5 MG Oral Tablet [Eliquis] Eliquis 10/25/2019 12:00:00 AM EDT ORAL completed [facility] ([facility]) 24 HR metoprolol succinate 50 MG Extende d Release Oral Tablet metoprolol succinate (TOPROL-XL) 50 MG 24 hr tablet metoprolol succinate (TOPROL-XL) 50 MG 24 hr tablet 09/19/2019 12:00:00 AM EDT 50 mg Oral abort ed Take 1 tablet (50 mg total) by mouth nightly [facility] clopidogrel 75 MG Oral Tablet clopidogrel (PLAVIX) 75 MG tablet clopidogrel (PLAVIX) 75 MG tablet 08/18/2019 12:00:00 AM EST 75 mg Oral active Take 1 tablet (75 mg total) by mouth daily [facility] 24 HR metoprolol succinate 25 MG Extende d Release Oral Tablet metoprolol succinate (TOPROL-XL) 25 MG 24 hr tablet metoprolol succinate (TOPROL-XL) 25 MG 24 hr tablet 03/17/2019 12:00:00 AM EDT 25 mg Oral abort ed Take 1 tablet (25 mg total) by mouth daily [facility] Spironolactone 25 MG Oral Tablet spironolactone (ALDAC TONE) 25 MG tablet spironolactone (ALDACTONE) 25 MG tablet 01/17/2019 12:00:00 AM EDT 25 mg Oral aborted Take 1 tablet (25 mg tota l) by mouth daily [facility] Finasteride 5 MG Oral Tablet finasteride (PROSCAR) 5 M G tablet finasteride (PROSCAR) 5 MG tablet 5 mg Oral aborted Ta ke 5 mg by mouth daily [facility] Ferrous Gluconate 239 (27 Fe) MG TABS 58029-23437 Oral aborted Take by mouth daily [facility] Calcitriol 0.46620 MG Oral Capsule calcitriol (ROCALTR OL) 0.25 MCG capsule calcitriol (ROCALTROL) 0.25 MCG capsule 0.25 ug Oral aborted Take 0.25 mcg by mouth daily [facility] Insurance Providers Payer name Policy type / Coverage type Policy ID Covered republican ID Covered republican's relationship to curry Policy Curry Plan Information MEDICARE [id number] SP [id number] A[employer] OPTIONS [id number] SP [id number] INSURANCE COVID-19 [id number] MEDICARE [id number] INSURANCE COVID-19 COVID Mackenzie C OVID MEDICARE [id number] Mackenzie [id number] UHC [id number] Mackenzie [id number] AARP HE[employer] CARE OPTIONS [id number] 18 [id number] MEDICARE PART [place] [id number] 18 [id number] MEDICARE C [id number] S [id number] AARP O [id number] S [id number] MEDICARE PART A -O/P [id number] 18 [id number] AARP HEALTH CARE OPTIONS-O/P [id number] 18 [id number] MEDICARE [id number] Mackenzie [id number] A Medicare Part B Medicare Primary [id number] Self [id number] A[employer] Healthcare Options Medigap Part B [id number] Self [id number] Medicare Part B Medicare Primary [id number] Self [id number] Aarp Medigap Part B [id number] Self [id number] Medicare Medicare Primary [id number] Self [id number] Aarp Supplemental Plan Medigap Part B [id number] Self [id number] Medicare Medicare Primary [id number] Self [id number] Aarp Supplemental Plan Medigap Part B [id number] Self [id number] Medicare Medicare Primary [id number] Self 11 [id number] Aarp Medigap Part B [id number] Self [id number] Medicare Medicare Primary [id number] Self [id number] MEDICARE C [id number] S [id number] A [employer]arp Medigap Part B Self Medicare Medicare Primary Self Aarp Medigap Part B [place] Primary Self MEDICARE -O/P [id number] 18 [id number] MEDICARE [id number] SP [id number] A Medicare Medicare Primary Self [employer] Care Medigap Part B Self MEDICARE M [id number] S [id number] A [facility] O [id number] S [id number] Problems, Conditions, and Diagnoses Code Display Name Description Problem Type Effective Dates Data Source(s) 563725723 Renal dialysis Renal dialysis Problem 05/22/2020 12:00: 00 AM EST [facility] ([facility] 96713720 Ulcer of foot Ulcer of foot Problem 11/29/2019 12:00:00 AM EDT [facility] ([facility]) 72619259 Pain in limb Pain in limb Problem 11/29/2019 12:00:00 A M EDT [facility] ([facility]) 60395231 Atherosclerosis of arteries of the extre mities Atherosclerosis of arteries of the extremities Problem 11/29/2019 12:00:00 AM EDT MEDEN T ([facility]) 45953671 End-stage renal disease End-stage renal disease Proble m 07/23/2019 12:00:00 AM EST [facility] ([facility]) Z99.2 Dependence on renal dialysis Dependence on renal dialy sis Diagnosis 05/01/2020 12:44:00 PM EST [facility] N18.6 End stage renal disease End stage renal disease Diagno sis 05/01/2020 12:44:00 PM [facility] U07.1 COVID-19 COVID-19 Diagnosis 04/26/2020 11:13:22 AM ES T [facility] H59759 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 Non-pressure chronic ulcer of other part of unspecified foot with unspecified severity Diagnosis 03/27/2020 01:50:00 PM EDT [facility] H17565 Pain in left foot Pain in left foot Diagnosis 03/27/2020 01:50:00 PM EDT [facility] M55603 Pain in right foot Pain in right foot Diagnosis 11/2019 01:50:00 PM EDT [facility] 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 Diagnosis 03/27/2020 01:50: 00 PM EDT [facility] Z04336 Unspecified atherosclerosis of [place] arteries of extremities, bilateral legs Unspecified atherosclerosis of [place] ar teries of extremities, bilateral legs Diagnosis 03/27/2020 01:50:00 PM EDT [facility] E78.5 Hyperlipidemia, unspecified Hyperlipidemia, unspecifie d Diagnosis 09/06/2019 03:10:29 PM EDT [facility] I10 Essential (primary) hypertension Essential (primary) h ypertension Diagnosis 09/06/2019 03:10:29 PM EDT [facility] I25.10 Atherosclerotic heart diseas e of [place] coronary artery without angina pectoris Atherosclerotic heart disease of [place] Diagnosis 09/06/2019 03:10:29 PM EDT [facility] R918 Other nonspecific abnormal finding of bisi ng field Other nonspecific abnormal finding of lung field Diagnosis 08/16/2019 11:40:00 AM [facility] I517 Cardiomegaly Cardiomegaly Diagnosis 08/16/2019 11:40:00 A M [facility] R0602 Shortness of breath Shortness of breath Diagnosis 0 08/16/2019 11:40:00 AM [facility] Surgeries/Procedures Procedure Description Date Indications Data Source(s) Capillary Blood Collection Finger, Heel, Ear Stick 05/22/2020 12:00:00 AM ANDREA JAMES ([facility] ) Revise Arteriovenous Fistula 05/01/2020 12:00:00 AM ADALBERTO JAMES ([facility]) ECG ROUTINE ECG W/LEAST 12 LDS TRCG ONLY W/O I&R ECG 12-LEAD Routine 04/26/2020 2:25 PM EST End stage renal disease 04/26/2020 07:25:08 PM EST End stage debby al disease [facility] End stage renal disease BLOOD COUNT COMPLETE AUTOMATED CBC Routine 0 2:10 PM EST End stage renal disease 04/26/2020 07:10:00 PM EST End stage debby al disease [facility] End stage renal disease HEMOGLOBIN GLYCOSYLATED A1C HEMOGLOBIN A1C Routine 04/26/2020 2:10 PM EST End stage renal disease 04/26/2020 07:10:00 PM EST End stage debby al disease [facility] End stage renal disease BASIC METABOLIC PANEL CALCIUM TOTAL BASIC METABOLIC PANEL Routi ne 04/26/2020 2:10 PM EST End stage renal disease 04/26/2020 07:10:00 PM EST End stage debby al disease [facility] End stage renal disease Capillary Blood Collection Finger, Heel, Ear Stick 02/21/2020 12:00:00 AM EDT [facility] ([facility] ) CYSTOURETHROSCOPY 02/01/2020 12:00:00 AM EDT [facility] ([facility]) US RETROPERITONEAL REAL TIME W/IMAGE LIMITED 0 12:00:00 AM EDT [facility] ([facility]) US RETROPERITONEAL REAL TIME W/IMAGE COMPLETE 02/01/20 20 12:00:00 AM EDT [facility] ([facility]) Duplex Scan Extracranial Arteries, Follow-Up Or Limited Stud y 01/17/2020 12:00:00 AM EDT [facility] ([facility]) Duplex Scan Extracranial Arteries, Follow-Up Or Limited Stud y 01/17/2020 12:00:00 AM EDT [facility] ([facility]) Duplex Scan Aorta/Inf Vena Cava/Iliac Vasc/Bypass GRFT LTD/F ol-Up 01/17/2020 12:00:00 AM EDT [facility] ([facility]) DUPLEX SCAN EXTRACRANIAL ART COMPL BI STUDY 01/17/2020 12:00:00 AM EDT [facility] ([facility]) Results ID Date Data Source [id number] 05/22/2020 02:17:00 PM EST [facility] ([facility] Name Value Range Interpretation Code Description Data Sil rce(s) Supporting Document(s) Hemoglobin A1c/Hemoglobin.total in Blood 4.9 % 4.40-6.10 [facility] ([facility] ID Date Data Source [id number] 05/04/2020 07:14:54 AM EST [facility] INFORMATIONPatient MRN Name Date of Age Gend*PT [id number] Kell Wallis Jr. 1940 79 years M SDCPT Location Admission Date/Time [facility]44 --- --- EPI ID CSN Admitting Provider [id number] Gabriella Hernandez MD([id number]) [place] [address] OPERATIVE REPORT OPNAME: SHAN WARDHeladio KELL Paz#: [id number] #: [id number] ADMISSION DATE: 05/01/2020DOB: 1940 SEX: M PT TYPE: H SURACCT #: [id number] CARE PHYSICIAN: DELVIS MIDDLETONTE OF OPERATION: 05/01/2020PREOPERATIVE DIAGNOSIS:Aneurysmal dilation, left arm arteriovenous fistula.POSTOPERATIVE DIAGNOSIS:Aneurysmal dilation, left arm arteriovenous fistula.PROCEDURE PERFORMED:Revision of left arm AV fistula with primary repair of aneurysm.SURGEON:Gabriella Hernandez MD.WOOD CUTTER:GLORIA Munoz. Please note that there was no [...] presentthroughout the case.GABRIELLA HERNANDEZ, KACY/BHUPINDER Job #: [id number] DOC #: [id number]: [facility] Name Value Range Interpretation Code Description Data Sil rce(s) Supporting Document(s) ID Date Data Source [id number] 05/01/2020 05:39:12 PM EST [facility] Name Value Range Interpretation Code Description Data Sil rce(s) Supporting Document(s) POC NOVA GLU 86 mg/dL (70-99) [facility] PERFORMED BY [facility] ID Date Data Source [id number] 05/01/2020 04:08:42 PM EST [facility]FORMATIONPatient MRN Name Date of Age Gend*PT [id number] Kell Wallis Jr. 1940 79 years M SDCPT Location Ad[facility] Date[facility] --- Gabriella Hernandez MD([id number]) EPI ID CSN Admitting Provider [id number] Gabriella Hernandez MD([id number])H&P reviewed. The patient was examined and there are no changes to the H&P.Gabriella Hernandez MD4:08 PM Name Value Range Interpretation Code Description Data Sil rce(s) Supporting Document(s) ID Date Data Source [id number] 05/01/2020 01:33:16 PM EST [facility] Name Value Range Interpretation Code Description Data Sil rce(s) Supporting Document(s) POC GLU 62 MG/DL (70-99) L [facility] PERFORMED BY [facility] ID Date Data Source [id number] 05/01/2020 01:33:16 PM EST [facility] Name Value Range Interpretation Code Description Data Sil rce(s) Supporting Document(s) POC POTASSIUM 4.5 MMOL/L (3.6-5.2) [facility] PERFORMED BY [facility] ID Date Data Source [id number] 05/01/2020 01:33:16 PM EST [facility] Name Value Range Interpretation Code Description Data Sil rce(s) Supporting Document(s) POC HCT 32 % (41.0-53.0) L [facility] ID Date Data Source [id number] 04/26/2020 02:29:42 PM EST [facility] Name Value Range Interpretation Code Description Data Sil rce(s) Supporting Document(s) EKG [facility] ICQTYg6bQrLDDbIbk9JcXyDoJYQnHY5rcex3V1N7tNPmY1AfbBFay6puY4JuM8IdLVFjGTEGMP2IlKGp jb2 [file] LEARNING OPERATIONS SPECIALIST/a2H3XR5RQK1a3HcnkESqRyo69CV7MGK6eH4dTaw3PEKG209VQASQwQ88XLLiqCQExylhzG598MS1N [file] 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/B5mApo72Fusz7Q9cG7oHW0nuO+n3Rvm1oJlcZUF1HTnnJ+2nzY3U//cNY3E+/MYZc+afz3CFl [file] psjBAAGLezBIQZmLiIQLPEMYrRWaTRVY7zsawAgsbU Rlq87LGcyYYhSkgTl75v9Iy5gz/rmBtW7bjqrq4qm1b18KBtAEZwvT4AUj6rB2pEaoDUkTQ1Y6BfZMjX hNmY6gDzMpC3/OHC3Qt9ImCjdy+lCDKtR5JQ8jIEj7mKoiIaN7j8CegdZlnowNuA9N7imO0FjkmwTGEh 4MFX0sLBUdab4PxMe2ZzchTnawYFt2LjGqyzcxP34S HmA1FOIP242En5cp9mTMSKOAV3HW/5sUf5K47WOcVqtU20hm+Ddc0AauJ78OqPbdacpGIZ8hNsdNpgc6 6m6pemmSVmEWg1G2ILteiaQ1SUC0SANRa9692Zu/button machine operator+BXa1sfoNr3w0jwD7dv5wZtjBPJT9lHhUtdBKe [file] jrU4s8CQZkJOpxNR6howDsQDDxBpjgGi6qeLR0DKXcNdvYUh1Ks8HlytN0ljHuVgLvIUb4SbOaAW6E ID Date Data Source [id number] 04/26/2020 07:31:57 PM EST [facility] Name Value Range Interpretation Code Description Data Sil rce(s) Supporting Document(s) HEMOGLOBIN A1C @ 5.3 % (4.0-6.0) [facility] Performed using Siemens [place] immunoassa y.Care must be taken when interpreting MiJ0mbsdnmml in patients with a hemoglobin variantor decreased erythrocyte lifespan. Values 5.7 - 6.4% suggest prediabetes.Values >=6.5% are diagnostic for diabetes.REFERENCE: DIABETES CARE 2018: 41(S13-S27). EST AVERAGE GLUCOSE 105 mg/dL [facility] ID Date Data Source [id number] 04/26/2020 07:29:28 PM EST [facility] Name Value Range Interpretation Code Description Data Sil rce(s) Supporting Document(s) SODIUM 140 mmol/L (136-145) [facility] POTASSIUM 5.6 mmol/L (3.6-5.2) H [facility] CHLORIDE 100 mmol/L (100-108) [facility] CO2 30 mmol/L (22-31) [facility] ANION GAP 10 mmol/L (7-16) [facility] UREA NITROGEN 65 mg/dL (7-24) H [facility] CREATININE 7.82 mg/dL (0.80-1.30) HH [facility] RESULT(S) CALLED TO AND READ BACK BYDR Masoud MARES AT [id number] ON [id number] AT [phone] DP [id number]. BUN/CREAT RATIO 8.3 RATIO (10.0-20.0) L [facility] GLUCOSE 82 mg/dL (70-99) [facility] CALCIUM 9.4 mg/dL (8.4-10.2) [facility] GFR 7 ml/min/1.73m2 (>59) L [facility] GFR ( AMER) 8 [...] for medication dosing. ID Date Data Source [id number] 04/26/2020 06:36:02 PM EST [facility] Name Value Range Interpretation Code Description Data Sil rce(s) Supporting Document(s) WBC 6.6 10*3/uL (4.1-11.0) [facility] RBC 3.35 10*6/uL (4.60-6.10) L [facility] HGB 11.0 g/dL (13.5-18.0) L [facility] HCT 33.7 % (41.0-53.0) L [facility] MCV 100.6 fL (80.0-95.0) H [facility] MCH 32.9 pg (27.0-32.0) [facility] MCHC 32.7 g/dL (32.0-36.0) [facility] RDW 17.5 % (10.5-14.5) [facility] PLT 94 10*3/uL (150-450) L [facility] MPV 9.6 fL (7.1-10.7) [facility] ID Date Data Source [id number] 04/26/2020 02:07:57 PM EST [facility] INFORMATIONPatient MRN Name Date of Age Gend*PT [id number] Kell Wallis Jr. 1940 79 years M OPPT Location Admission Date/Time Visit ID Attending Provider --- --- --- Gabriella Hernandez MD([id number]) EPI ID CSN Admitting Provider [id number] ---OUTPATIENT / OBSERVATIONAL SURGICAL OR INVASIVE PROCEDUREName: Kell Wallis Jr. : 1940 Sex: male Care Provider: DELVIS VERONICA [facility] Physician: Dr. Hernandez.HISTORY OF PRESENT ILLNESS: 79 years old white male with a history of end-stagerenal disease followed by his forestry aid, Dr. Mullen. Patient had left AVfistula insertion [...] ARTERY ;Surgeon: Giuseppe Espinosa MD; [facility]; Service: Vascular;Laterality: N/A; AV FISTULA PLACEMENT Left 02/19/2015 Procedure: INSERT ARTERIAL VENOUS FISTULA UPPER EXTREMITY LEFT ; Surgeon:Gabriella Hernandez MD; Location: [facility]; Service: Vascular; Laterality:Left; CORONARY ANGIOPLASTY WITH STENT [...] a day vitamin D, Ergocalciferol, 1.25 MG (86108 UT) CAPS Take 1 capsule by mouthonce [...] thyromegaly. No carotid bruits.MENTAL / NEUROLOGICAL STATUS: [id number]: Clear to auscultation. No wheezes, rhonchi or crackles.HEART: Rate rhythm regular. S1, S2. No murmur, rub or gallop.ABDOMEN: Bowel sounds positive times four. Soft, non tender. No reboundtenderness. No hepatosplenomegaly. Negative CVAT.EXTREMITIES: Pulses are diminished. +1 edema.OPERATIVE SITE: Without rash.CODE STATUS: Full Code per the patient.Steroid use: He denies any oral steroid therapy for three weeks or greaterwithin the last 3 months.[facility]est[facility] complications: [facility] :: 6/10 Moderately [...] parts of this document, were dictated using Essensium speaking software. A reasonable attempt at proofreading has beenmade to minimize errors. Please call with any questions or corrections.* Name Value Range Interpretation Code Description Data Sil rce(s) Supporting Document(s) ID Date Data Source [id number] 04/26/2020 11:00:00 AM EST [facility] Name Value Range Interpretation Code Description Data [facility] rce(s) Supporting Document(s) SARS coronavirus 2 RNA [facility] This lab was ordered by [facility] and reported by [facility]. ID Date Data Source [id number] 04/27/2020 12:09:22 PM EST [facility] Name Value Range Interpretation Code Description Data [facility] rce(s) Supporting Document(s) SARS-COV-2 TOSIN [facility] Not DetectedReference range: Not Detecte d Testing was performed using the rita(R) SARS-CoV-2 test. This nucleic acid amplification test was developed and its performance characteristics determined by [employer]. Nucleic acid amplification tests include PCR and [...] result in this assay. Performed At: [facility] [address] [id number] Dami Meredith MD Ph:[phone] ID Date Data Source [id number] 02/21/2020 01:37:00 PM EDT [facility] ([facility] Name Value Range Interpretation Code Description Data Sil rce(s) Supporting Document(s) Hemoglobin A1c/Hemoglobin.total in Blood 5.3 % 4.40-6.10 [facility] ([facility] ID Date Data Source [id number] 01/17/2020 12:53:00 PM EDT [facility] ([facility] Name Value Range Interpretation Code Description Data Sil rce(s) Supporting Document(s) Abdominal Aortic Aneurysm Ultrasound Laboratory test result [facility] ([facility]) Carotid Ultrasound Bilateral Laboratory test result [facility] ([facility]) ID Date Data Source [id number] 12/20/2019 10:39:04 AM EDT [facility] INFORMATIONPatient MRN Name Date of Age Gend*PT [id number] Shan Kell Bañuelos Jr. 1940 79 years M ---PT Location Admission Date/Time Visit ID Attending Provider --- --- --- --- EPI ID CSN Admitting Provider [id number] ---Cardiology History and PhysicalName: Kell Wallis Jr. Gender: maleDate of : 1940 Age: 79 yearsPrimary Care Provider / Referring Physician: DELVIS VERONICA, [facility] Telemedicine VisitPatient was identified by name and date of .Verbal consent was obtained from the patient for this telemedicine visit.Patient is aware of the risks, limitations, and benefits of a telemedicinevisit.This telemedicine assessment was conducted remotely with the assistance ofHarry'sication technology: Telephone Only Codes 97737: 21 -30 minutes of medicaldiscussion: Telephone OnlyCurrent HistoryChief Complaint: This is a Telemedicine visitHPI:This patient is a 79 years male with the following updated problem list:1. Known coronary disease with multiple stents and ultimately CABG x3 [id number]. Cardiac catheterization 07/18/2019 PCI/CHAI LAD. EF 40%.2. [...] AORTA/ILIAC ARTERY ;Surgeon: Giuseppe Espinosa MD; Location: [facility]; Service: Vascular;Laterality: N/A; AV FISTULA PLACEMENT Left 02/19/2015 Procedure: INSERT ARTERIAL VENOUS FISTULA UPPER EXTREMITY LEFT ; Surgeon:Gabriella Hernandez MD; Location: [facility]; Service: Vascular; Laterality:Left; CORONARY ARTERY BYPASS [...] file Gets together: Not on file Attends hoahaoism service: Not on file Active member of [...] Rfl: 3 vitamin D, Ergocalciferol, 1.25 MG (21473 UT) CAPS, Take 1 capsule by mouthonce [...] have spent 15 minutes with the patient, vocational counselor ing/coordinating the patient'scare.I discussed the above listed diagnoses and discussed Results of diagnostictesting, Management option risks and benefits and Treatment/managementinstructionsFollow up has been arranged and the patient knows to call if any issues arisebetween now and then, all question were answered.Signature: Apollo Jolly MDDate: December 20, 2019Time: 10:26 AMThis document or parts of this document, were dictated using [employer]. A reasonable attempt at proofreading has been made to minimize errors.Please call with any questions or corrections. Name Value Range Interpretation Code Description Data Sil rce(s) Supporting Document(s) ID Date Data Source [id number] 11/24/2019 11:32:17 AM EDT [facility] NT INFORMATIONPatient MRN Name Date of Age Gend*PT [id number] Kell Wallis Jr. 1940 79 years M ---PT Location Admission Date/Time Visit ID Attending Provider --- --- --- --- EPI ID CSN Admitting Provider [id number] ---Cardiology History and PhysicalName: Kell Wallis Jr. Gender: maleDate of : 1940 Age: 79 yearsPrimary Care Provider / Referring Physician: DELVIS VERONICA, [facility] Telemedicine VisitPatient was identified by name and date of .Verbal consent was obtained from the patient for this telemedicine visit.Patient is aware of the risks, limitations, and benefits of a telemedicinevisit.This telemedicine assessment was conducted remotely with the assistance ofHarry'sication technology: Telephone Only Codes 73224: 21 -30 minutes of medicaldiscussion: Telephone OnlyCurrent [...] AORTA/ILIAC ARTERY ;Surgeon: Giuseppe Espinosa MD; Location: [facility]; Service: Vascular;Laterality: N/A; AV FISTULA PLACEMENT Left 02/19/2015 Procedure: INSERT ARTERIAL VENOUS FISTULA UPPER EXTREMITY LEFT ; Surgeon:Gabriella Hernandez MD; Location: [facility]; Service: Vascular; Laterality:Left; CORONARY ARTERY BYPASS [...] file Gets together: Not on file Attends hoahaoism service: Not on file Active member of [...] Rfl: 3 vitamin D, Ergocalciferol, 1.25 MG (32767 UT) CAPS, Take 1 capsule by mouthonce [...] parts of this document, were dictated using [employer]. A reasonable attempt at proofreading has been made to minimize errors.Please call with any questions or corrections. Name Value Range Interpretation Code Description Data Sil rce(s) Supporting Document(s) ID Date Data Source [id number] 11/18/2019 11:16:00 AM EDT [facility]: XRAY FOOT COMPLETE RIGHTCLINICAL HISTORY: [...] rce(s) Supporting Document(s) ID Date Data Source [id number] 11/18/2019 11:15:00 AM EDT [facility] FO[facility] COMPLETE LEFTCLINICAL HISTORY: Osteomyelitis. Bilateral [...] rce(s) Supporting Document(s) ID Date Data Source [id number] 11/08/2019 02:39:00 PM EDT [facility] ([facility] Name Value Range Interpretation Code Description Data Sil rce(s) Supporting Document(s) Virus identified in Unspecified specimen by Culture Laboratory test result [facility] ([facility] SRC: CERVIX [id number] ID Date Data Source [id number] 11/08/2019 02:37:00 PM EDT [facility] ([facility] Name Value Range Interpretation Code Description Data Sil rce(s) Supporting Document(s) Bacteria identified in Unspecified specimen by Aerobe culture Laboratory test result [facility] ([facility] SRC: BACK Bacteria identified in Unspecified specimen by Culture Laborator y test result [facility] ([facility] ) SRC: BACK ID Date Data Source [id number] 11/08/2019 02:37:00 PM EDT [facility] ([facility]) Name Value Range Interpretation Code Description Data Sil rce(s) Supporting Document(s) Bacteria identified in Unspecified specimen by Aerobe culture Laboratory test result [facility] ([facility] Miranda Genao) ID Date Data Source [id number] 11/02/2019 12:00:00 AM EDT [facility] Gabriella Hernandez MD Patient Name: MARINA WALLIS [address] Date of : 1940[place] vel[place] [id number] Date of Exam: 11/02/2019#: Fax: [phone] EXAM: [...] proximal anterior tibial arteries bilaterally.Accredited by the [employer] in [place].LEXUS Bolanos/Cassie lopez for referring KELL WALLIS to our office. Electronically Signed - VICENTA LONG MD 11/04/19 12:56 Name Value Range Interpretation Code Description Data Sil rce(s) Supporting Document(s) ID Date Data Source [id number] 09/06/2019 04:14:36 PM EDT [facility]PAT[facility] NT INFORMATIONPatient MRN Name Date of Age Gend*PT [id number] Kell Wallis Jr. 1940 79 years M ---PT Location Admission Date/Time Visit ID Attending Provider --- --- --- --- EPI ID CSN Admitting Provider [id number] ---Cardiology Office VisitSubjectiveChief Complaint: Here for follow-up [...] DeniesPND or orthopnea. He recently [facility] [place] [facility] and underwent cardiac [facility] [...] AORTA/ILIAC ARTERY ;Surgeon: Giuseppe Espinosa MD; Location: [facility]; Service: Vascular;Laterality: N/A; AV FISTULA PLACEMENT Left 02/19/2015 Procedure: INSERT ARTERIAL VENOUS FISTULA UPPER EXTREMITY LEFT ; Surgeon:Gabriella Hernandez MD; Location: [facility]; Service: Vascular; Laterality:Left; CORONARY ARTERY BYPASS [...] file Gets together: Not on file Attends hoahaoism service: Not on file Active member of [...] tablet 3 vitamin D, Ergocalciferol, 1.25 MG (72953 UT) CAPS Take 1 capsule by mouthonce [...] history of previous bypass. Recent cardiaccatheterization in [place] with stenting to the LAD, he is [...] rce(s) Supporting Document(s) ID Date Data Source [id number] 08/17/2019 08:57:00 AM EST [facility] [address] [place] [address] PHONE: [phone] FAX: [phone] Name .................. : SHAN Bañuelos Acct Number.................. : [id number] ROOM. ................. : Number ................... : [id number] Stay type ............. : O/P Discharge Date......... ... : 08/16/19 Admit Date ......... : 08/16/19 Admit Phys .................... : CASSANDRAFELIPA SHEA Date of ....... : 1940 Family Phys ................... : JEREMÍAS HE Phone . ................. : [phone] Age ................................ : 79 Film# .................. .:[id number] Sex ................................. : M Unsigned transcriptions are preliminary reports and do not represent a medical or legal document CHEST 2 VIEWS [id number] COMPLETE:08/16/19 16:53 ABELINO [id number] (REASON FOR CHEST: SOB CHEST X-RAY: PA [...] Patient has never smoked [facility] ([facility]) Alcohol intake 04/26/2020 12:00:00 AM EST Yes completed [facility] Smoking 04/26/2020 12:00:00 AM EST Never smoker completed Never s moker [facility] Smoking 03/06/2020 12:00:00 AM EDT Never Smoked A Pipe complet ed Never Smoked A Pipe [facility] ([facility]) Smoking 02/01/2020 12:00:00 AM EDT Never Smoked Cigarettes com pleted Never Smoked Cigarettes [facility] ([facility]) Vital Signs ID Date Data Source UNK Name Value Range Interpretation Code Description Data Source(s) Oxygen saturation in Arterial blood by Pulse oximetry 97 % 97 % [facility] ([facility] Body mass index (BMI) [Ratio] 28.4 kg/m2 28.4 k g/m2 [facility] ([facility] Champion body weight 166 [lb_av] 166 [lb_av] [facility] T ([facility] Body weight 198.00 [lb_av] 198.00 [lb_av] [facility] ([facility] Body height 70 [in_i] 70 [in_i] [facility] ([facility] 5'10" Respiratory rate 16 /min 16 /min [facility] ( [facility] Heart rate 70 /min 70 /min [facility] ([facility] Body temperature 98.4 [degF] 98.4 [degF] [facility] ([facility] Diastolic blood pressure 68 mm[Hg] 68 mm[Hg] [facility] ([facility] Systolic blood pressure 118 mm[Hg] 118 mm[Hg] M [facility] ([facility] Body mass index (BMI) [...] by Pulse oximetry 97 % 97 % [facility] Body mass index (BMI) [Ratio] 27.98 kg/m2 27.98 kg/m2 [facility] Body weight 88.451 kg 88.451 kg [facility] Body height 177.8 cm 177.8 cm [facility] Heart rate 62 /min 62 /min [facility] Diastolic blood pressure 69 mm[Hg] 69 mm[Hg] [facility] Systolic blood pressure 131 mm[Hg] 131 mm[Hg] [facility] Body weight 88.452 kg 88.452 kg [facility] Body weight 195.00 [lb_av] 195.00 [lb_av] [facility] T ([facility]) Heart rate 70 /min 70 /min [facility] ([facility] Diastolic blood pressure 80 mm[Hg] 80 mm[Hg] [facility] ([facility]) Systolic blood pressure 130 mm[Hg] 130 mm[Hg] M [facility] ([facility]) Oxygen saturation in Arterial blood by Pulse oximetry 94 % 94 % [facility] ([facility] Body mass index (BMI) [Ratio] 28.4 kg/m2 28.4 k g/m2 [facility] ([facility] Champion body weight 166 [lb_av] 166 [lb_av] [facility] ([facility] Body weight 198.00 [lb_av] 198.00 [lb_av] [facility] ([facility] Body height 70 [in_i] 70 [in_i] [facility] ([facility] 5'10" Respiratory rate 16 /min 16 /min [facility] ( [facility] Heart rate 70 /min 70 /min [facility] ([facility] Body temperature 98.0 [degF] 98.0 [degF] [facility] ([facility] Diastolic blood pressure 74 mm[Hg] 74 mm[Hg] [facility] ([facility] Systolic blood pressure 118 mm[Hg] 118 mm[Hg] M [facility] ([facility] Heart rate 67 /min 67 /min [facility] Diastolic blood pressure 70 mm[Hg] 70 mm[Hg] [facility] ([facility]) Systolic blood pressure 115 mm[Hg] 115 mm[Hg] M [facility] ([facility]) Body mass index (BMI) [Ratio] 33.0 kg/m2 33.0 k g/m2 [facility] ([facility] Body weight 104.328 kg 104.328 kg [facility] Body weight 230.00 [lb_av] 230.00 [lb_av] [facility] ([facility]) Body height 70 [in_i] 70 [in_i] [facility] 5'10" Oxygen saturation in Arterial blood by [...] Body weight 99.338 kg 99.338 kg [facility] ([facility], ) Body mass index (BMI) [Ratio] 31.4 kg/m2 31.4 k g/m2 [facility] ([facility]) Body weight 219.00 [lb_av] 219.00 [lb_av] [facility] T ([facility]) Body height 70 [in_i] 70 [in_i] [facility] ([facility]) 5'10" Diastolic blood pressure 70 mm[Hg] 70 mm[Hg] [facility] ([facility]) Systolic blood pressure 119 mm[Hg] 119 mm[Hg] M [facility] ([facility]) Oxygen saturation in Arterial blood by Pulse oximetry 97 % 97 % [facility] ([facility] Body height 70 [in_i] 70 [in_i] [facility] ([facility] 5'10" Respiratory rate 14 /min 14 /min [facility] ( [facility] Heart rate 74 /min 74 /min [facility] ([facility] Body temperature 97.3 [degF] 97.3 [degF] [facility] ([facility] Diastolic blood pressure 80 mm[Hg] 80 mm[Hg] [facility] ([facility] Systolic blood pressure 128 mm[Hg] 128 mm[Hg] M [facility] ([facility] Body mass index (BMI) [Ratio] 31.1 kg/m2 31.1 k g/m2 [facility] ([facility]) Body weight 98.431 kg 98.431 kg [...] 124 mm[Hg] M [facility] ([facility]) Oxygen saturation in Arterial blood by Pulse oximetry 97 % 97 % [facility] ([facility] ([place]), (Room Air) Body height 70 [in_i] 70 [in_i] [facility] ([facility] 5'10" Respiratory rate 18 /min 18 /min [facility] ( [facility] Heart rate 75 /min 75 /min [facility] ([facility] Body temperature 98.2 [degF] 98.2 [degF] [facility] ([facility] Diastolic blood pressure 60 mm[Hg] 60 mm[Hg] [facility] ([facility] Systolic blood pressure 142 mm[Hg] 142 mm[Hg] M [facility] ([facility] Oxygen saturation in Arterial blood by Pulse oximetry 97 % 97 % [facility] ([facility] ([place]), (Room Air) Body height 70 [in_i] 70 [in_i] [facility] ([facility] 5'10" Respiratory rate 19 /min 19 /min [facility] ( [facility] Heart rate 66 /min 66 /min [facility] ([facility] Body temperature 99.2 [degF] 99.2 [degF] [facility] ([facility] Diastolic blood pressure 70 mm[Hg] 70 mm[Hg] [facility] ([facility] Systolic blood pressure 132 mm[Hg] 132 mm[Hg] M [facility] ([facility] Body mass index (BMI) [Ratio] 31.1 kg/m2 31.1 k g/m2 [facility] ([facility]) Oxygen saturation in Arterial blood by [...] [degF] 97.0 [degF] [facility] ([facility]) Heart rate 75 /min 75 /min [facility] Diastolic blood pressure 74 mm[Hg] 74 mm[Hg] [facility] ([facility]) Systolic blood pressure 135 mm[Hg] 135 mm[Hg] M [facility] ([facility]) Patient Treatment Plan of Care Planned Activity Planned Date Details Description Data Source (s) Rosuvastatin calcium 10 MG Oral Tablet 01/11/2020 12:00:00 AM EDT [facility] 24 HR metoprolol succinate 50 MG Extended Release Oral Tablet 09/19/2019 12:00:00 AM EDT [facility] clopidogrel 75 MG Oral Tablet 08/18/2019 12:00:00 AM EST [facility] 24 HR metoprolol succinate 25 MG Extended Release Oral Tablet 03/17/2019 12:00:00 AM EDT [facility] Spironolactone 25 MG Oral Tablet 01/17/2019 12:00:00 AM EDT [facility] Ferrous Gluconate 239 (27 Fe) MG TABS [facility] Finasteride 5 MG Oral Tablet [facility] Calcitriol 0.65640 MG Oral Capsule [facility]
[2020-07-11] MEDS ORDERED: NS 1,000 ML IV SCH (19:45)
[2020-07-11 20:05] VITALS: BP 129/68
[2020-07-11 20:13] LABS: PERCENT SATURATION 87.8 % (19.7-50.0)
[2020-07-11 20:20] VITALS: BP 121/56
[2020-07-11 20:21] LABS: FOLATE 7.3 NG/ML (>5.4)
--- NOTE | 2020-07-11 20:53 | ECGEPIP ---
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
[2020-07-11 21:05] VITALS: BP 123/57
[2020-07-11 22:39] VITALS: BP 133/63
[2020-07-11 22:58] VITALS: BP 133/63
--- NOTE | 2020-07-11 23:10 | HPEPDOC ---
[facility] Medical History & Physical Date of Admission Jul 11, 2020 Date of Service: Jul 11, 2020 Primary Care Physician: Delvis Veronica MD Attending Physician: JAYESH ZAMORA MD History and Physical TIME OF SERVICE: 8:26 PM CHIEF COMPLAINT: Weakness HISTORY OF PRESENT ILLNESS: This 80 old gentleman presented with complaints of feeling very weak for the last 2-3 weeks. He has also been having dry heaves that her more severe when he tries to eat. Today he felt a lot weaker and he didn't have enough energy to get up to wash up or to take care of himself, therefore he decided come to the hospital for evaluation. He admits to feeling short of breath but denies having any chest pain, abdominal pain, vomiting, falling, or having any blood in his stools. His told him that he looks a little bit more pale than usual and he has had dark stools for more than one month. REVIEW OF SYSTEMS: 12 point review of systems negative except as listed in HPI PAST MEDICAL/ SURGICAL HISTORY: ESRD via left lower arm fistula Chronic hypertension Inferior septal [place] / Coronary bypass with subsequent placement of stents in either [place] for bypass vessels. CVA 2 Gout AAA repair SOCIAL HISTORY: He doesn't smoke & drinks alcohol occasionally FAMILY HISTORY: His brother of heart disease in his 50s ALLERGIES: Please see below. HOME MEDICATIONS: Please see below. PHYSICAL EXAMINATION: VITAL SIGNS: Please see below. GEN: well-nourished / well developed/ NAD INTEGUMENT: not flushed/ not jaundice / . He has generalized pallor HEENT: lips acyanotic /mucus membranes moist and pink / has conjunctival pallor / . He doesn't have angular cheilitis CVS: RRR/NMRG/ radial pulses intact /trace bilateral lower extremity edema LUNGS: no coughing / lungs are clear to auscultation bilaterally on room air ABDOMEN: Contour (flat) / soft & not tender with palpation MSK/EXTREMITIES: NCAT / range of motion intact in all 4 extremities /. He has a mature left lower arm AV fistula NEURO: CN 2-12 are grossly intact / speech is not dysarthric PSYCH: alert and oriented to person place and time/ able to understand and follow all commands LABORATORY DATA: 07/11/20 16:45 07/11/20 22:56 Laboratory Tests 2 07/11/20 16:45: Immature Granulocyte % (Auto) 0.5, Neutrophils (%) (Auto) 78.9H, Lymphocytes (%) (Auto) 8.5L, Monocytes (%) (Auto) 10.6H, Eosinophils (%) (Auto) 1.0, Basophils (%) (Auto) 0.5, Neutrophils # (Auto) 8.6H, Lymphocytes # (Auto) 0.9L, Monocytes # (Auto) 1.2H, Eosinophils # (Auto) 0.1, Basophils # (Auto) 0.1, Nucleated Red Blood Cells % (auto) 0.0, Anion Gap 7L, Glomerular Filtration Rate 8.9L, Calcium Level 10.0, Iron Level 237H, Total Iron Binding Capacity 270, Transferrin % Saturation 87.8H, Ferritin 1127H, Total Bilirubin 1.1H, Direct Bilirubin 0.7H, A spartate Amino Transf (AST/SGOT) 16, Alanine Aminotransferase (ALT/SGPT) 12, Alkaline Phosphatase 242H, Total Creatine Kinase 19L, Creatine Kinase MB 1.4, Creatine Kinase MB Relative Index 7.37H, Troponin I 0.26H, Total Protein 7.2, Albumin 2.8L, Albumin/Globulin Ratio 0.6, Lipase 246, Vitamin B12 Level 499, Folate 7.3 07/11/20 17:42: Coronavirus (COVID-19)(PCR) NEGATIVE, Influenza Type A (RT-PCR) NEGATIVE, Influenza Type B (RT-PCR) NEGATIVE, Respiratory Syncytial Virus (PCR) NEGATIVE 07/11/20 18:08: Prothrombin Time 17.2H, Prothromb Time International Ratio 1.37, Activated Partial Thromboplast Time 34.0 IMAGING: X-ray of the abdomen "IMPRESSION: No free air or obstruction." MICROBIOLOGY: Please see below. ASSESSMENT: Mr. Wallis is a 80 yr old M with a history of ESRD, chronic CAD/CABG, CVAs, gout, AAA repair who presented with complaints of weakness and dizziness and was found to have acute blood loss anemia. PLAN: 1. Acute Blood Loss Anemia He reports having dark stools, therefore, this may be due to an upper GI bleed. Since he has ESRD this may be due to AVMs He received PRBCs in the ER Plan: admit to PCU / will ask RNs to place 2 large bore IVs & check orthostats / start PPI 40mg IV BID for 72 H, then switch to PO after 72 H (to decrease rate of re-bleeding) / f/u add on iron studies & stool occult / keep Hg >8 bc of hx of CAD) /hold ASA / GI consult for EGD +/-c-scope 2. Hyperkalemia Plan: f/u repeat K /will hold off Kayexalate bc of GI bleed / Nephro consult for dialysis 3. Thrombocytopenia Plan: since the patient also has has anemia will check retic#, LDH, haptoglobin to rule out hemolysis 4. ESRD via left lower arm fistula Plan: Nephro consult / resume home meds 5. CAD/CABG/CVA Plan: statin / hold ASA DVT PROPHYLAXIS: SCDs DISPOSITION: home after more than 2 midnight's stay Home Medications Scheduled Aspirin (Aspirin EC) 81 Mg Tablet.dr, 81 MG PO QHS Pentoxifylline (Pentoxifylline) 400 Mg Tablet.er, 400 MG PO BID Rosuvastatin Calcium (Rosuvastatin Calcium) 10 Mg Tablet, 10 MG PO 3XW MON, WED, FRI Sevelamer Carbonate (Sevelamer Carbonate) 800 Mg Tablet, 2,400 MG PO WM Allergies Coded Allergies: Contrast Media (Verified Allergy, Severe, kidney damage, 07/11/20) A-FIB/CHADSVASC A-FIB History Current/History of A-Fib/PAF?: No Current PO Anticoag Therapy: No JAYESH ZAMORA MD Jul 11, 2020 23:09
[2020-07-11 23:50] VITALS: BP 123/59
[2020-07-12] VITALS (11 sets, daily range): BP systolic 98–147; BP diastolic 53–95
[2020-07-12] MEDS: PENTOXIFYLLINE 400 MG TAB PO SCH ×3 (01:48→21:24)
[2020-07-12] MEDS ORDERED: SODIUM CHLORIDE 0.9% 1000ML IV PRN (07:00)
[2020-07-12] MEDS ORDERED: LIDOCAINE 1% SDV 5ML VIAL SC PRN (07:00)
[2020-07-12] MEDS: (RENVELA) SEVELAMER **CARBONate** 800 MG TAB PO SCH ×3 (07:43→17:16)
[2020-07-12 08:05] LABS: HEMATOCRIT 28.8 % (42.0-52.0); HEMOGLOBIN 9.1 g/dl (13.5-17.5); MEAN CORPUSCULAR HGB CONC 31.6 g/dl (32.0-36.5); MEAN CORPUSCULAR VOLUME 101.4 fl (80.0-96.0); PLATELET COUNT, AUTOMATED 117 10^3/uL (150-450); RED BLOOD COUNT 2.84 10^6/uL (4.30-6.10); WHITE BLOOD COUNT 9.2 10^3/uL (4.0-10.0)
[2020-07-12] MEDS: ROSUVASTATIN 10 MG TAB (CRESTOR) PO SCH (08:06)
[2020-07-12] MEDS: PANTOPRAZOLE 40MG VIAL (C9113 PER 1) IV SCH ×2 (08:06→21:24)
[2020-07-12 08:35] LABS: CALCIUM LEVEL 10.2 MG/DL (8.8-10.2); CREATININE FOR GFR 6.61 MG/DL (0.70-1.30); GLOMERULAR FILTRATION RATE 8.7 (>42); POTASSIUM SERUM 5.8 MEQ/L (3.5-5.1)
--- NOTE | 2020-07-12 10:26 | IPNPDOC ---
Date Seen The patient was seen on 07/12/20. Progress Note SUBJECTIVE: c/o dark stools at home. no c/o sob, cp,pressure tightness, dizziness, cough, palpitations. hgb 9 from 6 s/p rbc transfusion OBJECTIVE PHYSICAL EXAMINATION: VITAL SIGNS: Please see below. GENERAL: aaox3 no distress HEENT: no jvd no cervical LAD moist mm CARDIOVASCULAR: RRR S1S2 RESPIRATORY: CTAB AEBE ABDOMINAL: +bs soft nt nd EXTREMITIES: no c/c. +edema LABORATORY DATA, IMAGING STUDIES, MICROBIOLOGY: Please see below. ASSESSMENT AND PLAN: 80 y/o male c/o black stools, weakness, dry heaves found to have symptomatic anemia w hgb 6.2 and hyperkalemia 5.2 PROBLEMS: acute blood loss anemia acute gi bleed symptomatic anemia hyperkalemia ESRD via left lower arm fistula Chronic hypertension Inferior septal [place] / Coronary bypass with subsequent placement of stents in either [place] for bypass vessels. CVA 2 Gout AAA repair plan: discontinue anticoagulants, antiplatelets. npo. gi consulted. ppi. 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 s/p 3urbc transfusion w/o recurrent bleed. await further recommendations from GI after endoscopy. fall precautions and assisted ambulation. compression stockings for dvt prophylaxis. ARU screen. VS, I&O, 24H, Fishbone Vital Signs/I&O Vital Signs Date Time Temp Pulse Resp B/P (MAP) Pulse Ox O2 Delivery O2 Flow Rate FiO2 07/12/20 08:00 2.0 07/12/20 07:27 97.8 73 22 133/64 (87) 100 Nasal Cannula I&O- Last 24 Hours up to 6 AM 07/12/20 06:00 Intake Total 1658 ml Balance 1658 ml Laboratory Data 24H LABS Laboratory Tests 2 07/11/20 16:45: Immature Granulocyte % (Auto) 0.5, Neutrophils (%) (Auto) 78.9H, Lymphocytes (%) (Auto) 8.5L, Monocytes (%) (Auto) 10.6H, Eosinophils (%) (Auto) 1.0, Basophils (%) (Auto) 0.5, Neutrophils # (Auto) 8.6H, Lymphocytes # (Auto) 0.9L, Monocytes # (Auto) 1.2H, Eosinophils # (Auto) 0.1, Basophils # (Auto) 0.1, Nucleated Red Blood Cells % (auto) 0.0, Anion Gap 7L, Glomerular Filtration Rate 8.9L, Calcium Level 10.0, Iron Level 237H, Total Iron Binding Capacity 270, Transferrin % Saturation 87.8H, Ferritin 1127H, Total Bilirubin 1.1H, Direct Bilirubin 0.7H, Aspartate Amino Transf (AST/SGOT) 16, Alanine Aminotransferase (ALT/SGPT) 12, Alkaline Phosphatase 242H, Total Creatine Kinase 19L, Creatine Kinase MB 1.4, Creatine Kinase MB Relative Index 7.37H, Troponin I 0.26H, Total Protein 7.2, Albumin 2.8L, Albumin/Globulin Ratio 0.6, Lipase 246, Vitamin B12 Level 499, Folate 7.3 07/11/20 17:42: Coronavirus (COVID-19)(PCR) NEGATIVE, Influenza Type A (RT-PCR) NEGATIVE, Influenza Type B (RT-PCR) NEGATIVE, Respiratory Syncytial Virus (PCR) NEGATIVE 07/11/20 18:08: Prothrombin Time 17.2H, Prothromb Time International Ratio 1.37, Activated Partial Thromboplast Time 34.0 07/12/20 05:30: Bedside Glucose (Misc Panel) 94 07/12/20 07:38: Reticulocyte # (auto) 96.6H, Nucleated Red Blood Cells % (auto) 0.2H, Percent Reticulocyte Count 3.4H, Reticulocyte Hemoglobin Equivalent 37.5H, Anion Gap 12, Glomerular Filtration Rate 8.7L, Calcium Level 10.2, Lactate Dehydrogenase 141 CBC/BMP Laboratory Tests 07/11/20 16:45 07/11/20 22:56 07/12/20 07:38 JUAN FRANCISCO CALLOWAY MD Jul 12, 2020 10:26
[2020-07-13] VITALS: BP 120/53
[2020-07-13 04:13] VITALS: BP 110/56
[2020-07-13 04:54] LABS: HEMATOCRIT 28.1 % (42.0-52.0); HEMOGLOBIN 8.8 g/dl (13.5-17.5); MEAN CORPUSCULAR HEMOGLOBIN 31.9 pg (27.0-33.0); MEAN CORPUSCULAR HGB CONC 31.3 g/dl (32.0-36.5); MEAN CORPUSCULAR VOLUME 101.8 fl (80.0-96.0); RED BLOOD COUNT 2.76 10^6/uL (4.30-6.10); WHITE BLOOD COUNT 8.6 10^3/uL (4.0-10.0)
[2020-07-13 05:16] LABS: PLATELET COUNT, AUTOMATED 89 10^3/uL (150-450)
[2020-07-13 05:17] LABS: CALCIUM LEVEL 9.2 MG/DL (8.8-10.2); CREATININE FOR GFR 4.21 MG/DL (0.70-1.30); GLOMERULAR FILTRATION RATE 14.6 (>42); POTASSIUM SERUM 4.5 MEQ/L (3.5-5.1)
[2020-07-13] MEDS: PENTOXIFYLLINE 400 MG TAB PO SCH ×2 (07:55→20:01)
[2020-07-13] MEDS: ROSUVASTATIN 10 MG TAB (CRESTOR) PO SCH (07:55)
[2020-07-13] MEDS: PANTOPRAZOLE 40MG VIAL (C9113 PER 1) IV SCH ×2 (07:56→20:01)
[2020-07-13] MEDS: (RENVELA) SEVELAMER **CARBONate** 800 MG TAB PO SCH ×3 (07:56→17:03)
[2020-07-13 08:00] VITALS: BP 108/59
[2020-07-13] MEDS ORDERED: SODIUM CHLORIDE 0.9% 1000ML IV PRN (10:15)
[2020-07-13] MEDS ORDERED: LIDOCAINE 1% SDV 5ML VIAL SC PRN (10:15)
--- NOTE | 2020-07-13 11:47 | IPNPDOC ---
Date Seen The patient was seen on 07/13/20. Progress Note SUBJECTIVE: c/o rlq abd discomfort w/o recurrent episodes of black tarry stools. per GI Dr. Kumar, EGD and colonoscopy in am golytely and liquid diet today. npo after midnight. no c/o sob,cp, dizziness, or lightheadedness. OBJECTIVE PHYSICAL EXAMINATION: VITAL SIGNS: Please see below. GENERAL: no pallor or cyanosis speaks in full sentences HEENT: no jvd no cervical LAD moist mm CARDIOVASCULAR: RRR S1S2 RESPIRATORY: CTAB AEBE ABDOMINAL: +bs soft nt nd EXTREMITIES: no c/c. +edema LABORATORY DATA, IMAGING STUDIES, MICROBIOLOGY: Please see below. ASSESSMENT AND PLAN: 80 y/o male c/o black stools, weakness, dry heaves found to have symptomatic anemia w hgb 6.2 and hyperkalemia 5.2 PROBLEMS: acute blood loss anemia acute gi bleed symptomatic anemia hyperkalemia,resolved ESRD via left lower arm fistula on maintenance dialysis Chronic hypertension Inferior septal [place] / Coronary bypass with subsequent placement of stents in either [place] for bypass vessels. CVA 2 Gout AAA repair plan: per GI Dr. Kumar, EGD and colonoscopy in am golytely and liquid diet today. npo after midnight. no c/o sob,cp, dizziness, or lightheadedness. 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 VS, I&O, 24H, Fishbone Vital Signs/I&O Vital Signs Date Time Temp Pulse Resp B/P (MAP) Pulse Ox O2 Delivery O2 Flow Rate FiO2 07/13/20 08:00 97.5 67 18 108/59 (75) 92 Room Air 07/13/20 04:13 1.0 I&O- Last 24 Hours up to 6 AM 07/13/20 06:00 Intake Total 400 ml Output Total 370 ml Balance 30 ml Laboratory Data 24H LABS Laboratory Tests 2 07/12/20 13:37: Bedside Glucose (Misc Panel) 70L 07/12/20 16:20: Bedside Glucose (Misc Panel) 84 07/12/20 18:02: Bedside Glucose (Misc Panel) 83 07/13/20 01:03: Bedside Glucose (Misc Panel) 79L 07/13/20 04:15: Nucleated Red Blood Cells % (auto) 0.3H, Immature Platelet Fraction 8.0, Anion Gap 7L, Glomerular Filtration Rate 14.6L, Calcium Level 9.2 07/13/20 06:04: Bedside Glucose (Misc Panel) 122H CBC/BMP Laboratory Tests 07/12/20 11:51 07/12/20 22:18 07/13/20 04:15 JUAN FRANCISCO CALLOWAY MD Jul 13, 2020 11:47
[2020-07-13 12:00] VITALS: BP 116/60
--- NOTE | 2020-07-13 12:27 | CR ---
INPATIENT CONSULTATION DATE: 07/12/20 REQUESTING PHYSICIAN: ER Physician Dr. Donald. CONSULTING PHYSICIAN: Reba Mullen DO. REASON FOR CONSULTATION: Management of end-stage renal disease on hemodialysis. HISTORY OF PRESENT ILLNESS: Mr. Wallis is known to me from the outpatient hemodialysis unit. He is a 80-year-old male with a past medical history of end-stage renal disease on hemodialysis (he is supposed to be on Thursday, Thursday, Thursday schedule; however, he absolutely refuses to come on Wednesdays). He also has a past medical history of anemia of chronic renal failure, secondary hyperparathyroidism of renal origin, history of CABG and other comorbid conditions mentioned below. He has weekly hemoglobin checks through the hemodialysis unit and it is drawn every Thursday. On June 25 his hemoglobin was 10.3, on July 02 it was 10.2 and on July 09 it was 7.2; however, it did not result until July 11. The patient presented to the Emergency Room on the with complaints of progressive weakness and lack of energy, worsening of his chronic shortness of breath and he reports dark stools. In the Emergency Room he was found to have a hemoglobin of 6.5 and he was admitted of GI bleed and transfused within the past 24 hours 3 units of blood with improvement in his hemoglobin and hematocrit. He was also found to be mildly hyperkalemic and a nephrology evaluation was requested for management of his chronic hemodialysis and patient was seen and examined this morning in the hemodialysis unit receiving his treatment. He is n.p.o. for endoscopy later today. PAST MEDICAL HISTORY: 1. End-stage renal disease on hemodialysis, is noncompliant with Thursday's treatment, but comes on Thursday and Thursday. 2. Hypotension of hemodialysis. 3. Anemia of chronic renal failure. 4. Secondary hyperparathyroidism of renal origin. 5. History of myocardial infarction status post CABG, status post coronary artery stenting. 6. History of stroke. 7. Gout. 8. Abdominal aortic aneurysm repair. 9. Dyslipidemia. PAST SURGICAL HISTORY: 1. Left arm AV fistula. 2. CABG. 3. Coronary artery stenting. 4. Abdominal aortic aneurysm repair. ALLERGIES: CONTRAST MEDIA. HOME MEDICATIONS: 1. Metoprolol 25 mg twice a day. 2. Pentoxifylline 400 mg twice a day. 3. Renvela 800 mg, 3 tablets three times a day. 4. Aspirin 81 mg daily. 5. Plavix 75 mg daily. 6. Vitamin D2 50,000 units once a week. 7. Rosuvastatin 10 mg Thursday, Thursday, Thursday. SOCIAL HISTORY: He is . He denies smoking or drugs. He is a social drinker. FAMILY HISTORY: Brother of heart disease in his 50s. REVIEW OF SYSTEMS: Constitutional: He reports fatigue and weakness. HEENT: Denies visual changes or tearing. He denies epistaxis or odynophagia. Cardiac: He reports persistent leg swelling and dyspnea with mild exertion. He denies chest pain. Respiratory: He reports shortness of breath, but denies cough. Gastrointestinal: Denies nausea, vomiting or diarrhea. Genitourinary: He reports oliguria. He denies dysuria. Endocrine: He denies diabetes. He has secondary hyperparathyroidism of renal origin. Musculoskeletal: He reports weakness, but denies any acute myalgias or arthralgias. Skin: He denies any new rashes or ulcers. He reports pallor. Neurologic: He denies seizure or syncope. Psychiatric: He reports depression. Hematologic: He reports dual antiplatelet therapy and anemia of chronic renal failure, but denies anticoagulant use. The remainder of review of systems is negative or as per HPI. PHYSICAL EXAMINATION: Vital signs: Temperature 96.9, pulse 71, respiratory rate 18, blood pressure 134/53, saturating 98% on 2 liters nasal cannula. Intake yesterday was not fully recorded. Dialysis today could only remove 350 mL because of patient's complaint of cramping with dialysis and soft blood pressure. General: Patient was seen in the hemodialysis unit awake, alert, oriented, receiving his treatment, appears depressed, but in no acute distress. HEENT: Extraocular muscles are intact. There is conjunctival pallor. Neck: Supple. Jugular veins are mildly elevated. Heart: Sounds are regular S1 and S2. There is 2+ leg edema bilaterally. Lungs: Symmetric air entry, no crackle or rale. Abdomen: Soft and nontender. There are bowel sounds. Extremities: Left forearm AV fistula in use and peripheral edema of the legs. Skin: Pallor, but is warm and dry. Neurologic: He is oriented times 3, at baseline mentation. LABORATORY DATA: Sodium 139, potassium 5.8, bicarbonate 27, BUN 91, creatinine 6.6. Hemoglobin 6.5, repeat hemoglobin 8.8 after 3 units of PRBCs. INPATIENT MEDICATIONS: 1. Protonix 40 mg I.V. Twice a day. 2. Pentoxifylline 400 mg by mouth twice a day. 3. Rosuvastatin 10 mg by mouth daily. 4. Renvela 2400 mg by mouth with meals. PROBLEMS: 1. End-stage renal disease: On hemodialysis on Thursday, Thursday, Thursday schedule (but the patient never complies with his Thursday treatments and always skips them). Mr. Wallis is chronically volume overloaded. It is due to his refusal to attend hemodialysis treatments 3 times a week and also due to recurrent hypotension of hemodialysis which limits our ability to remove an adequate amount of fluid. Indeed with this dialysis treatment today we were only able to remove about 370 mL of fluid. He will be dialyzed again on Thursday. He is receiving heparin free dialysis in view of GI bleed. He was dialyzed with a low potassium bath and hyperkalemia is expected to improve. 2. GI bleed: His baseline hemoglobin is between 10-10.5. In the outpatient setting hemoglobin is checked once weekly in the hemodialysis unit and on July 02 hemoglobin was 10.4 and on July 09 it had decreased to 7.2. He is on I.V. Protonix. He is receiving heparin free dialysis. His dual antiplatelet therapy is on-hold. He was transfused 3 units of packed red blood cells. His hemoglobin has come up. He is pending GI evaluation for endoscopy. 3. Hyperkalemia: It will improve with dialysis. 4. Congestive heart failure: Patient has no recent echocardiogram that I see since 2010. That old echocardiogram did show diastolic congestive heart failure. The patient has chronic mild fluid overload. It is due to his noncompliance with 3 times weekly hemodialysis and he will be dialyzed again on Thursday for further fluid removal. I am going to get a repeat echocardiogram while he is here. MILKA
[2020-07-13] MEDS ORDERED: GOLYTELY SOLN 4000 ML BTL PO ONE (13:00)
[2020-07-13 16:00] VITALS: BP 98/52
[2020-07-13 20:00] VITALS: BP 108/48
--- NOTE | 2020-07-13 21:05 | IPN ---
PROGRESS NOTE DATE: 07/13/2020 SUBJECTIVE: Jaren was seen and examined this morning in the hemodialysis unit receiving his treatment. He offers no complaints. He is pending endoscopy and colonoscopy tomorrow morning. His hemoglobin has remained stable overnight. He is being dialyzed today without any issues and goal fluid removal is 1 liter. PHYSICAL EXAMINATION: VITAL SIGNS: Temperature 97.5, pulse 70, respiratory rate 18, blood pressure 116/60, saturating 91 to 97% on room air. INTAKE AND OUTPUT: Intake yesterday was 1,710. Goal dialysis removal today is 1 liter. Weight in the bed scale today is 90.3 kg. GENERAL: The patient is seen in the hemodialysis unit receiving his treatment, awake, alert and oriented, in no apparent distress. An elderly male frail appearing. HEENT: Extraocular muscles are intact. Tongue is moist. NECK: Supple. Jugular veins are elevated. HEART: Heart sounds are regular S1, S2. There is at least 2+ leg edema bilaterally, which is pitting. LUNGS: Anterior auscultation only. Symmetric air entry, diminished at the bases. No crackle or rale. He is seen on room air. ABDOMEN: Soft and nontender. There are bowel sounds. EXTREMITIES: Show 2+ leg edema bilaterally and left arm fistula, which is in use. NEUROLOGIC: He is oriented x3 at baseline mentation. SKIN: Warm and dry, some pallor is noted. PSYCHIATRIC: He is withdrawn. LABORATORY STUDIES: White count 8.6, hemoglobin 8.8, platelets 89,000. Sodium 135, potassium 4.5, bicarbonate 33, BUN 44. Transferrin saturation 87%. INPATIENT MEDICATIONS: Reviewed by myself. No change noted as compared to yesterday. PROBLEMS: 1. End-stage renal disease on hemodialysis on Thursday, Thursday, Thursday schedule: The patient is chronically noncompliant with Thursday outpatient treatment, he is chronically volume overloaded as well. It is due to his refusal to attend three times weekly hemodialysis and also due to recurrent hypotension of hemodialysis, which limits our ability to remove an adequate amount of fluid. We were able to take off 1 unit with today's treatment. He is receiving Heparin-free dialysis in view of likely GI bleed and thrombocytopenia. 2. GI bleed: His baseline hemoglobin is between 10 to 10.5 and it is checked once weekly in the outpatient hemodialysis unit and it acutely dropped this week. He is on I.V. Protonix. He received 3 units of packed red blood cells. He is receiving Heparin-free dialysis. His dual anti-platelet therapy is on hold. He is for endoscopy and colonoscopy tomorrow with GI. 3. Hyperkalemia: It has improved with dialysis. 4. Diastolic congestive heart failure: Patient has no recent echocardiogram on file, I reviewed one from 2010. The patient is chronically volume overloaded due to noncompliance with three times weekly hemodialysis and due to chronic hypotension of hemodialysis. Up-to-date echocardiogram is ordered and pending.
[2020-07-14] VITALS: BP 116/57
[2020-07-14 04:00] VITALS: BP 104/54
[2020-07-14 06:16] LABS: HEMOGLOBIN 8.7 g/dl (13.5-17.5); MEAN CORPUSCULAR HEMOGLOBIN 31.2 pg (27.0-33.0); MEAN CORPUSCULAR HGB CONC 31.1 g/dl (32.0-36.5); MEAN CORPUSCULAR VOLUME 100.4 fl (80.0-96.0); RED BLOOD COUNT 2.79 10^6/uL (4.30-6.10); WHITE BLOOD COUNT 8.5 10^3/uL (4.0-10.0)
[2020-07-14 06:29] LABS: CALCIUM LEVEL 8.9 MG/DL (8.8-10.2); CREATININE FOR GFR 3.34 MG/DL (0.70-1.30); GLOMERULAR FILTRATION RATE 19.1 (>42); POTASSIUM SERUM 3.8 MEQ/L (3.5-5.1)
[2020-07-14 06:38] LABS: PLATELET COUNT, AUTOMATED 73 10^3/uL (150-450)
[2020-07-14 07:43] VITALS: BP 121/66
[2020-07-14] MEDS: (RENVELA) SEVELAMER **CARBONate** 800 MG TAB PO SCH ×3 (08:00→17:11)
[2020-07-14] MEDS: ROSUVASTATIN 10 MG TAB (CRESTOR) PO SCH (09:52)
[2020-07-14] MEDS: PANTOPRAZOLE 40MG VIAL (C9113 PER 1) IV SCH ×2 (09:52→20:22)
[2020-07-14] MEDS: PENTOXIFYLLINE 400 MG TAB PO SCH ×2 (09:57→20:22)
[2020-07-14] MEDS ORDERED: LIDOCAINE 2% 100MG/5ML SDV (FOR ANES.) As Ordered ONE (10:28)
--- NOTE | 2020-07-14 10:28 | IPNPDOC ---
Date Seen The patient was seen on 07/14/20. Progress Note SUBJECTIVE: completed golytely. brown stools . no recurrent brbpr. npo for egd and colonoscopy. no c/o cp, sob, palpitations, lightheadedness, or dizziness. no abd pain/n/v. OBJECTIVE PHYSICAL EXAMINATION: VITAL SIGNS: Please see below. GENERAL: no distress. asleepbut arousable. appropriate HEENT: no jvd no cervical LAD dry mm CARDIOVASCULAR: RRR S1S2 RESPIRATORY: CTAB AEBE ABDOMINAL: +bs soft nt nd EXTREMITIES: no c/c. +edema LABORATORY DATA, IMAGING STUDIES, MICROBIOLOGY: Please see below. ASSESSMENT AND PLAN: 80 y/o male c/o black stools, weakness, dry heaves found to have symptomatic anemia w hgb 6.2 and hyperkalemia 5.2 PROBLEMS: acute blood loss anemia acute gi bleed symptomatic anemia hyperkalemia,resolved ESRD via left lower arm fistula on maintenance dialysis Chronic hypertension Inferior septal [place] / Coronary bypass with subsequent placement of stents in either [place] for bypass vessels. CVA 2 Gout AAA repair plan: received golytely. npo for egd colonoscopy by Dr. Kumar today. ESRD managed bynephrology for dialysis needs. no new complaints. await results and further recommendations from GI after endoscopy. compression stockings for now. avoiding antiplt and anticoagulants until source of gi bleed determined. h&h stable. no need for further transfusion. did not suffer fromany cardiac ischemia despite severe anemia. VS, I&O, 24H, Fishbone Vital Signs/I&O Vital Signs Date Time Temp Pulse Resp B/P (MAP) Pulse Ox O2 Delivery O2 Flow Rate FiO2 07/14/20 07:48 92 Nasal Cannula 1.0 07/14/20 07:43 97.5 64 20 121/66 (84) I&O- Last 24 Hours up to 6 AM 07/14/20 06:00 Intake Total 960 ml Output Total 1000 ml Balance -40 ml Laboratory Data 24H LABS Laboratory Tests 2 07/13/20 12:19: Bedside Glucose (Misc Panel) 77L 07/13/20 18:20: Bedside Glucose (Misc Panel) 85 07/13/20 20:10: Bedside Glucose (Misc Panel) 109 07/14/20 03:59: Bedside Glucose (Misc Panel) 86 07/14/20 05:41: Nucleated Red Blood Cells % (auto) 0.6H, Immature Platelet Fraction 9.7, Anion Gap 8, Glomerular Filtration Rate 19.1L, Calcium Level 8.9 CBC/BMP Laboratory Tests 07/14/20 05:41 JUAN FRANCISCO CALLOWAY MD Jul 14, 2020 07:49
[2020-07-14] MEDS ORDERED: propofoL 500 MG/50 ML VIAL As Ordered ONE (10:29)
[2020-07-14] MEDS ORDERED: fentaNYL 100 MCG/2 ML INJECTION (J3010) As Ordered ONE (10:29)
[2020-07-14] MEDS ORDERED: BISACODYL 10 MG SUPP PR ONE ×2 (11:00→23:00)
[2020-07-14 12:00] VITALS: BP 139/68
[2020-07-14 16:00] VITALS: BP 112/56
[2020-07-14] MEDS ORDERED: GOLYTELY SOLN 4000 ML BTL PO ONE (18:00)
[2020-07-14 20:00] VITALS: BP 108/62
[2020-07-15] VITALS (8 sets, daily range): BP systolic 101–121; BP diastolic 52–63
[2020-07-15 05:02] LABS: HEMATOCRIT 26.3 % (42.0-52.0); HEMOGLOBIN 8.2 g/dl (13.5-17.5); MEAN CORPUSCULAR HEMOGLOBIN 31.7 pg (27.0-33.0); MEAN CORPUSCULAR HGB CONC 31.2 g/dl (32.0-36.5); MEAN CORPUSCULAR VOLUME 101.5 fl (80.0-96.0); RED BLOOD COUNT 2.59 10^6/uL (4.30-6.10); WHITE BLOOD COUNT 9.5 10^3/uL (4.0-10.0)
[2020-07-15 05:09] LABS: PLATELET COUNT, AUTOMATED 85 10^3/uL (150-450)
[2020-07-15 05:39] LABS: CREATININE FOR GFR 4.06 MG/DL (0.70-1.30); GLOMERULAR FILTRATION RATE 15.3 (>42); POTASSIUM SERUM 3.8 MEQ/L (3.5-5.1)
[2020-07-15] MEDS: (RENVELA) SEVELAMER **CARBONate** 800 MG TAB PO SCH ×3 (07:32→17:48)
[2020-07-15] MEDS ORDERED: LIDOCAINE 2% 100MG/5ML SDV (FOR ANES.) As Ordered ONE (08:01)
[2020-07-15] MEDS ORDERED: fentaNYL 100 MCG/2 ML INJECTION (J3010) As Ordered ONE (08:01)
[2020-07-15] MEDS ORDERED: propofoL 500 MG/50 ML VIAL As Ordered ONE (08:01)
[2020-07-15] MEDS ORDERED: ePHEDrine SULFATE 25 MG/5 ML(5MG/ML) SYRINGE As Ordered ONE (08:53)
--- NOTE | 2020-07-15 09:38 | ROOR ---
Patient Name: Jaren Wallis Procedure Date: 07/15/2020 7:06 AM Date of : 1940 Age: 80 Gender: Male Note Status: Finalized Procedure: Upper GI endoscopy Indications: Acute post hemorrhagic anemia Providers: Reji Kumar MD Referring MD: Angie Torres MD, 2. Inpatient 2. Inpatient Requesting Provider: Medicines: Monitored Anesthesia Care Complications: No immediate complications. Procedure: Pre-Anesthesia Assessment: - Prior to the procedure, a History and Physical was performed, and patient medications and allergies were reviewed. The patient is competent. The risks and benefits of the procedure and the sedation options and risks were discussed with the patient. All questions were answered and informed consent was obtained. Patient identification and proposed procedure were verified by the physician, the nurse and the anesthesiologist in the procedure room. Mental Status Examination: alert and oriented. Airway Examination: normal oropharyngeal airway and neck mobility. Respiratory Examination: clear to auscultation. CV Examination: normal. Prophylactic Antibiotics: The patient does not require prophylactic antibiotics. Prior Anticoagulants: The patient has taken no previous anticoagulant or antiplatelet agents. ASA Grade Assessment: III - A patient with severe systemic disease. After reviewing the risks and benefits, the patient was deemed in satisfactory condition to undergo the procedure. The anesthesia plan was to use monitored anesthesia care (MAC). Immediately prior to administration of medications, the patient was re-assessed for adequacy to receive sedatives. The heart rate, respiratory rate, oxygen saturations, blood pressure, adequacy of pulmonary ventilation, and response to care were monitored throughout the procedure. The physical status of the patient was re-assessed after the procedure. The Endoscope was introduced through the mouth, and advanced to the second part of duodenum. The upper GI endoscopy was accomplished without difficulty. The patient tolerated the procedure well. Findings: LA Grade B (one or more mucosal breaks greater than 5 mm, not extending between the tops of two mucosal folds) esophagitis with no bleeding was found in the distal esophagus. Scattered moderate inflammation characterized by congestion (edema) and granularity was found in the gastric body and in the gastric antrum. The duodenal bulb and second portion of the duodenum were normal. Impression: - LA Grade B reflux esophagitis. - Gastritis. - Normal duodenal bulb and second portion of the duodenum. - No specimens collected. Recommendation: - Patient has a contact number available for emergencies. The signs and symptoms of potential delayed complications were discussed with the patient. Return to normal activities tomorrow. Written discharge instructions were provided to the patient. - High fiber diet, cardiac diet and low sodium diet. - Anti-acid reflux diet -- small meals, sit upright atleast 1 hour after meals, avoid fatty/ oily foods and avoid foods that cause reflux. - Continue present medications. - Follow an antireflux regimen. - Follow the recommendations as per the other procedure note. - Return to primary care physician. Procedure Code(s): --- Professional --- 84277, Esophagogastroduodenoscopy, flexible, transoral; diagnostic, including collection of specimen(s) by brushing or washing, when performed (separate procedure) Diagnosis Code(s): --- Professional --- K21.0, Gastro-esophageal reflux disease with esophagitis K29.70, Gastritis, unspecified, without bleeding D62, Acute posthemorrhagic anemia CPT copyright 2019 [employer]. All rights reserved. The codes documented in this report are preliminary and upon hospital coder review may be revised to meet current compliance requirements. Reji Kumar MD Reji Kumar MD 07/15/2020 9:38:06 AM Electronically signed by Reji Kumar MD Number of Addenda: 0 Note Initiated On: 07/15/2020 7:06 AM Estimated Blood Loss: Estimated blood loss was minimal.
--- NOTE | 2020-07-15 09:45 | ROOR ---
Patient Name: Jaren Wallis Procedure Date: 07/15/2020 8:43 AM Date of : 1940 Age: 80 Room: Main OR Gender: Male Note Status: Finalized Procedure: Colonoscopy Indications: Acute post hemorrhagic anemia Providers: Reji Kumar MD Referring MD: Angie Torres MD, 2. Inpatient 2. Inpatient Requesting Provider: Medicines: Monitored Anesthesia Care Complications: No immediate complications. Procedure: Pre-Anesthesia Assessment: - Prior to the procedure, a History and Physical was performed, and patient medications and allergies were reviewed. The patient is competent. The risks and benefits of the procedure and the sedation options and risks were discussed with the patient. All questions were answered and informed consent was obtained. Patient identification and proposed procedure were verified by the physician, the nurse and the anesthesiologist in the procedure room. Mental Status Examination: alert and oriented. Airway Examination: normal oropharyngeal airway and neck mobility. Respiratory Examination: clear to auscultation. CV Examination: normal. Prophylactic Antibiotics: The patient does not require prophylactic antibiotics. Prior Anticoagulants: The patient has taken no previous anticoagulant or antiplatelet agents. ASA Grade Assessment: II - A patient with mild systemic disease. After reviewing the risks and benefits, the patient was deemed in satisfactory condition to undergo the procedure. The anesthesia plan was to use monitored anesthesia care (MAC). Immediately prior to administration of medications, the patient was re-assessed for adequacy to receive sedatives. The heart rate, respiratory rate, oxygen saturations, blood pressure, adequacy of pulmonary ventilation, and response to care were monitored throughout the procedure. The physical status of the patient was re-assessed after the procedure. The Colonoscope was introduced through the anus and advanced to the cecum, identified by appendiceal orifice and ileocecal valve. The colonoscopy was performed without difficulty. The patient tolerated the procedure well. The quality of the bowel preparation was good. The terminal ileum, ileocecal valve, appendiceal orifice, and rectum were photographed. Scope insertion time was 2 minutes. Scope withdrawal time was 9 minutes. The total duration of the procedure was 12 minutes. Findings: The perianal and digital rectal examinations were normal. The terminal ileum appeared normal. Four large patchy angioectasias with stigmata of recent bleeding were found in the ascending colon. Coagulation for hemostasis using argon plasma at 0.8 liters/minute and 20 grissom was successful. Estimated blood loss: none. Two sessile polyps were found in the ascending colon. The polyps were 6 to 12 mm in size. These polyps were removed with a hot snare. Resection and retrieval were complete. To close a defect after polypectomy, one hemostatic clip was successfully placed. There was no bleeding at the end of the procedure. Multiple small and large-mouthed diverticula were found in the sigmoid colon. There was no evidence of diverticular bleeding. Non-bleeding external and internal hemorrhoids were found during endoscopy. The hemorrhoids were medium-sized. Impression: - The examined portion of the ileum was normal. - Four recently bleeding colonic angioectasias. Treated with argon plasma coagulation (APC). - Two 6 to 12 mm polyps in the ascending colon, removed with a hot snare. Resected and retrieved. Clip was placed. - Moderate diverticulosis in the sigmoid colon. There was no evidence of diverticular bleeding. - Non-bleeding external and internal hemorrhoids. Recommendation: - Patient has a contact number available for emergencies. The signs and symptoms of potential delayed complications were discussed with the patient. Return to normal activities tomorrow. Written discharge instructions were provided to the patient. - High fiber diet. - Continue present medications. - Await pathology results. - Repeat colonoscopy in 3 years for surveillance. - Telephone GI clinic for pathology results in 2 weeks. - Return to primary care physician. Procedure Code(s): --- Professional --- 82255, 59, Colonoscopy, flexible; with control of bleeding, any method 04540, Colonoscopy, flexible; with removal of tumor(s), polyp(s), or other lesion(s) by snare technique Diagnosis Code(s): --- Professional --- K64.8, Other hemorrhoids K55.21, Angiodysplasia of colon with hemorrhage K63.5, Polyp of colon D62, Acute posthemorrhagic anemia K57.30, Diverticulosis of large intestine without perforation or abscess without bleeding CPT copyright 2019 [employer]. All rights reserved. The codes documented in this report are preliminary and upon camera tuning engineer review may be revised to meet current compliance requirements. Reji Kumar MD Reji Kumar MD 07/15/2020 9:45:42 AM Electronically signed by Reji Kumar MD Number of Addenda: 0 Note Initiated On: 07/15/2020 8:43 AM Estimated Blood Loss: Estimated blood loss was minimal.
[2020-07-15] MEDS ORDERED: ONDANSETRON 4MG/2ML VIAL IV PRN (10:00)
--- NOTE | 2020-07-15 10:45 | IPNPDOC ---
Date Seen The patient was seen on 07/15/20. Progress Note SUBJECTIVE: no recurrent gi bleed. no c/o cp, pressure, tightness,sob, diaphoresis, n/v/abdpain, sob. egd: gastritis esophagitis colonoscopy : 4clips avm and nonbleedinghemorrhoids ok to have high fiber diet OBJECTIVE PHYSICAL EXAMINATION: VITAL SIGNS: Please see below. GENERAL: aaox3 no distress eating ice chips HEENT: no jvd no cervical LAD dry mm CARDIOVASCULAR: RRR S1S2 RESPIRATORY: CTAB AEBE ABDOMINAL: +bs soft nt nd EXTREMITIES: no c/c. +edema LABORATORY DATA, IMAGING STUDIES, MICROBIOLOGY: Please see below. ASSESSMENT AND PLAN: 80 y/o male c/o black stools, weakness, dry heaves found to have symptomatic anemia w hgb 6.2 and hyperkalemia 5.2 PROBLEMS: acute blood loss anemia esophagitis gastritis avm s/p clip nonbleeding hemorrhoids acute gi bleed symptomatic anemia hyperkalemia,resolved ESRD via left lower arm fistula on maintenance dialysis Chronic hypertension Inferior septal [place] / Coronary bypass with subsequent placement of stents in either [place] for bypass vessels. CVA 2 Gout AAA repair plan: per GI, ok to resume po diet. ppi and outpt fu. nephrology for dialysis needs. h&h stable no recurrent gi bleed. activity as tolerated fall precautions. pt/ot hse . dc in am if hgb stable after resumes oral diet. VS, I&O, 24H, Fishbone Vital Signs/I&O Vital Signs Date Time Temp Pulse Resp B/P (MAP) Pulse Ox O2 Delivery O2 Flow Rate FiO2 07/15/20 10:25 74 18 105/53 (70) 98 07/15/20 10:21 Room Air 07/15/20 10:15 97.2 07/14/20 16:00 1.0 I&O- Last 24 Hours up to 6 AM 07/15/20 06:00 Intake Total 0 ml Output Total 0 ml Balance 0 ml Laboratory Data 24H LABS Laboratory Tests 2 07/14/20 12:04: Bedside Glucose (Misc Panel) 80L 07/14/20 13:29: Bedside Glucose (Misc Panel) 79L 07/14/20 16:53: Bedside Glucose (Misc Panel) 70L 07/14/20 23:16: Bedside Glucose (Misc Panel) 72L 07/15/20 04:38: Nucleated Red Blood Cells % (auto) 0.2H, Anion Gap 10, Glomerular Filtration Rate 15.3L, Calcium Level 9.0 07/15/20 04:47: Bedside Glucose (Misc Panel) 74L CBC/BMP Laboratory Tests 07/15/20 04:38 JUAN FRANCISCO CALLOWAY MD Jul 15, 2020 10:45
--- NOTE | 2020-07-15 11:04 | IPN ---
PROGRESS NOTE DATE: 07/14/2020 Mr. Wallis is seen this morning on his bedside. He was sleeping and I woke him up. Nursing staff reports that his bowel prep is not complete and still having some brown stools. He is scheduled for upper and lower endoscopy later today. Patient denies any dyspnea, chest pain, fever or chills. PHYSICAL EXAMINATION: Temperature 97.6 degrees Fahrenheit, heart rate 70 per minute, respiratory rate 20 per minute, blood pressure 139/68 mmHg, oxygen saturation 93% on 1 liter of oxygen. HEAD: Atraumatic. NECK: Supple. Jugular venous distention (JVD) is mildly elevated. HEART SOUNDS: Regular. LUNGS: Clear to auscultation. ABDOMEN: Soft and nontender. Bowel sounds are normal. EXTREMITIES: Without any cyanosis or clubbing. His left arm arteriovenous (AV) fistula is patent. Lower extremity edema is at least 2+. NEUROLOGIC: He is grossly intact. LABORATORY DATA: Today's laboratories show WBC 8.5, hemoglobin 8.7, hematocrit 28.0, platelets 73. Sodium 133, potassium 3.8, CO2 32, BUN 23, creatinine 3.34, glucose 84, calcium 8.9. PROBLEMS: 1. Acute blood loss anemia. Patient had severe symptomatic anemia on admission. His hemoglobin was 6.5. His baseline hemoglobin was about 11 just a week ago. He has been transfused 3 units of packed red blood cells (RBCs) so far and hemoglobin seems to be stable. He is scheduled for upper and lower endoscopy later today to find out the source of his blood loss. At this point, there is no emergent indication for a transfusion. 2. End-stage renal disease. Patient was dialyzed just yesterday and will plan next dialysis on Thursday. No emergent indication for dialysis today. 3. Congestive heart failure and leg edema. Patient does have chronic lower extremity edema and he does not respond very well to fluid removal with dialysis, as he gets cramps and hypotension. Unfortunately, he is also noncompliant with dialysis treatments and comes only twice a week. We will continue our efforts to correct his volume status while he is here in the hospital. 4. Hyponatremia. Patient has mild hyponatremia, most likely related to the bowel prep. This will be corrected with dialysis and no other intervention would be needed.
[2020-07-15] MEDS: SUCRALFATE SUSP 1GM/10ML UD PO SCH ×3 (12:18→20:32)
[2020-07-15] MEDS: ROSUVASTATIN 10 MG TAB (CRESTOR) PO SCH (12:18)
[2020-07-15] MEDS: PENTOXIFYLLINE 400 MG TAB PO SCH ×2 (12:18→20:32)
[2020-07-15] MEDS: PANTOPRAZOLE 40MG TAB (PROTONIX) PO SCH (12:19)
--- NOTE | 2020-07-15 13:06 | ECGEPIP ---
[facility] Test Date: 2020-07-15 Pat Name: KELL TORREZ Department: Room: [place] [address] Gender: Male Board Layer: TABATHA : 1940 Requested By: DIANA Ashraf Order Number: [id number] Reading MD: Brandy Louie Measurements Intervals [place] Rate: 63 P: -27 FL: 187 QRS: 114 QRSD: 194 T: 30 QT: 505 QTc: 517 Interpretive Statements PROBABLE SINUS RHYTHM WITH OCCASIONAL SUPRAVENTRICULAR PREMATURE COMPLEXES P WAVES SEEN BEST TOWARD END OF RHYTHM STRIP RIGHT BUNDLE BRANCH BLOCK// LPHB NEW POSSIBLE RIGHT VENTRICULAR HYPERTROPHY COPD PATTERN AXIS MORE RIGHT C/W 07/11/[address] T ABN WITH SOME IMPROVEMENT C/W 07/11/20 PACS ARE NEW NEW LOW VOLTAGE LIMB LEADS/ Electronically Signed on 07-15-2020 13:05:19 EST by Brandy Louie
--- NOTE | 2020-07-15 17:48 | IPN ---
PROGRESS NOTE DATE: 07/15/2020 Mr. Wallis is seen this morning on his bedside. He just returned from endoscopy. He was found to have esophagitis and gastritis on upper endoscopy and some polyps and arteriovenous malformations (AVMs) on his colonoscopy. Two polyps were removed and some AVMs were cauterized. Patient denies any dyspnea, chest pain, nausea or vomiting. PHYSICAL EXAMINATION: Temperature 97.6 degrees Fahrenheit, heart rate 70 per minute, respiratory rate 18 per minute, blood pressure 120/63 mmHg, oxygen saturation was down to 91% on room air. He is now up to 98% on 1 liter oxygen. HEAD: Atraumatic. NECK: Supple and jugular venous distention (JVD) is not abnormally elevated. HEART SOUND: Regular. LUNGS: Diminished breath sounds. ABDOMEN: Soft and nontender. Bowel sounds are normal. EXTREMITIES: Without any cyanosis or clubbing. Left arm arteriovenous (AV) fistula is patent. Bilateral lower extremity edema is 2+. NEUROLOGIC: He is awake and at his baseline mentation. LABORATORY DATA: Today's labs show WBC 9.5, hemoglobin 8.2, hematocrit 26.3, platelets 85,000. Sodium 135, potassium 3.8, BUN 29, creatinine 4.0. PROBLEMS: 1. Acute blood loss anemia. Patient was admitted with symptomatic anemia. He was found to have some evidence of recent bleeding from his colon AVMs. No active bleeding noticed on colonoscopy. Patient has been transfused and probably will need one more unit of blood, which will be transfused during dialysis tomorrow. 2. End-stage renal disease. Patient has been on maintenance hemodialysis and his dialysis will be scheduled for tomorrow. No emergent need for dialysis today. 3. Congestive heart failure/peripheral edema. This is a chronic issue related to end-stage renal disease and noncompliance with dialysis. This patient will be dialyzed tomorrow and we will try to remove as much fluid as he could tolerate. 4. Coronary artery disease. He is currently asymptomatic and remains on his chronic therapy.
[2020-07-16] VITALS (10 sets, daily range): BP systolic 102–143; BP diastolic 59–71
[2020-07-16 05:03] LABS: CALCIUM LEVEL 8.9 MG/DL (8.8-10.2); CREATININE FOR GFR 5.28 MG/DL (0.70-1.30); GLOMERULAR FILTRATION RATE 11.3 (>42); POTASSIUM SERUM 4.2 MEQ/L (3.5-5.1)
[2020-07-16 05:11] LABS: HEMATOCRIT 26.3 % (42.0-52.0); HEMOGLOBIN 8.2 g/dl (13.5-17.5); MEAN CORPUSCULAR HEMOGLOBIN 31.1 pg (27.0-33.0); MEAN CORPUSCULAR HGB CONC 31.2 g/dl (32.0-36.5); MEAN CORPUSCULAR VOLUME 99.6 fl (80.0-96.0); RED BLOOD COUNT 2.64 10^6/uL (4.30-6.10); WHITE BLOOD COUNT 8.1 10^3/uL (4.0-10.0)
[2020-07-16 05:13] LABS: PLATELET COUNT, AUTOMATED 93 10^3/uL (150-450)
[2020-07-16] MEDS: (RENVELA) SEVELAMER **CARBONate** 800 MG TAB PO SCH ×3 (06:35→17:14)
[2020-07-16] MEDS: SUCRALFATE SUSP 1GM/10ML UD PO SCH ×4 (06:35→20:45)
[2020-07-16] MEDS: PANTOPRAZOLE 40MG TAB (PROTONIX) PO SCH (06:36)
[2020-07-16] MEDS: PENTOXIFYLLINE 400 MG TAB PO SCH ×2 (06:36→20:45)
[2020-07-16] MEDS: ROSUVASTATIN 10 MG TAB (CRESTOR) PO SCH (06:36)
--- NOTE | 2020-07-16 07:20 | IPNPDOC ---
Date Seen The patient was seen on 07/16/20. Progress Note SUBJECTIVE: c/o fatigue and generalized weakness. no n/v. tolerating po diet denies brbpr hematemesis OBJECTIVE PHYSICAL EXAMINATION: VITAL SIGNS: Please see below. HYSICAL EXAMINATION: VITAL SIGNS: Please see below. GENERAL: slight pallor no cyanosis aaox3 no use of acc resp mm HEENT: no jvd no cervical LAD dry mm CARDIOVASCULAR: RRR S1S2 RESPIRATORY: CTAB AEBE ABDOMINAL: +bs soft nt nd EXTREMITIES: no c/c. +edema LABORATORY DATA, IMAGING STUDIES, MICROBIOLOGY: Please see below. ASSESSMENT AND PLAN: 80 y/o male c/o black stools, weakness, dry heaves found to have symptomatic anemia w hgb 6.2 and hyperkalemia 5.2 PROBLEMS: acute blood loss anemia -s/p3urbc -still c/o weakness and fatigue -transfuse one more unit rbc today -egd/colonoscopy:esophagitis,gastritis, avm s/p clip,nonbleeding hemorrhoids acute gi bleed -no recurrent bleed -hemodynamically stable -ppi and carafate -resumed on po diet and tolerating well symptomatic anemia -s/p3urbc -still c/o weakness and fatigue -transfuse one more unit rbc today -egd/colonoscopy:esophagitis,gastritis, avm s/p clip,nonbleeding hemorrhoids hyperkalemia -resolved w HD ESRD via left lower arm fistula on maintenance dialysis -nephrology consulted for HD needs Chronic hypertension -no hemodynamic compromise despite gi bleed and volume loss Inferior septal [place] / Coronary bypass with subsequent placement of stents in [place] for bypass vessels. -denies acute ischemic complaints -hold off on antiplatelets and any anticoagulation due to recent gi bleed w blood loss CVA 2 -no oral ac due to recent gi bleed Gout AAA repair disposition: aru screen VS, I&O, 24H, Fishbone Vital Signs/I&O Vital Signs Date Time Temp Pulse Resp B/P (MAP) Pulse Ox O2 Delivery O2 Flow Rate FiO2 07/16/20 04:00 97.2 86 18 143/66 (91) 92 Room Air 07/15/20 11:46 1.0 I&O- Last 24 Hours up to 6 AM 07/16/20 05:59 Intake Total 1145 ml Output Total 150 ml Balance 995 ml Laboratory Data 24H LABS Laboratory Tests 2 07/15/20 11:45: Bedside Glucose (Misc Panel) 88 07/15/20 16:58: Bedside Glucose (Misc Panel) 94 07/16/20 04:10: Nucleated Red Blood Cells % (auto) 0.4H, Immature Platelet Fraction 6.6, Anion Gap 9, Glomerular Filtration Rate 11.3L, Calcium Level 8.9 CBC/BMP Laboratory Tests 07/16/20 04:10 JUAN FRANCISCO CALLOWAY MD Jul 16, 2020 07:13
--- NOTE | 2020-07-16 12:42 | IPN ---
PROGRESS NOTE DATE: 07/16/2020 SUBJECTIVE: Mr. Wallis is seen this morning on his bedside. He is feeling well and denies any abdominal pain, dyspnea or chest pain. He denies any nausea or vomiting. He underwent upper and lower endoscopies yesterday and those reports have already been reviewed. The patient denies any rectal bleeding or black colored stools. PHYSICAL EXAMINATION: GENERAL: The patient is awake and at his baseline mentation. He is laying in the bed with eyes closed. VITAL SIGNS: His temperature is 97 degrees Fahrenheit, heart rate is 80 per minute and respiratory rate is 20 per minute. Blood pressure 116/62 mmHg and oxygen saturation 96% on room air. HEAD: Atraumatic. NECK: Supple without any JVD. There is no thyroid enlargement or abnormal cervical lymph nodes. HEART: Heart sounds are regular. LUNGS: Diminished breath sounds at bases. ABDOMEN: Distended and nontender. I feel there is some ascites. EXTREMITIES: No cyanosis or clubbing. Left arm AV fistula is patent. Bilateral lower extremity edema is at least 2+. NEUROLOGIC: He remains at his baseline mentation without any focal deficits. LABORATORY DATA: Today's labs show a WBC count of 8.1, hemoglobin 8.2 and hematocrit 26.3, platelets are 93,000. Sodium is 132, potassium is 4.2, CO2 30, BUN 39, creatinine 5.28. PROBLEMS: 1. Endstage renal disease. Patient will be dialyzed later today. He will continue with chronic maintenance hemodialysis on Thursday, Thursday and Thursday scheduled. 2. Hyponatremia. Patient has mild hyponatremia which is likely to improve with hemodialysis. No other intervention is indicated. 3. Ascites and peripheral edema. I am concerned about the possibility of cirrhosis of liver. I will get an abdominal ultrasound to assess for ascites and to also assess for cirrhosis. 4. Anemia, patient had acute blood loss anemia and has been transfused. We will transfuse one more unit of packed RBCs today during dialysis. The patient already had upper and lower endoscopies done. There is no active bleeding at present. 5. Disposition: From a renal standpoint, the patient seems to be doing well since he was transfused. He can probably be discharged to home tomorrow if he remains stable.
--- NOTE | 2020-07-16 12:53 | REP ---
INDICATION: Ascites. COMPARISON: None TECHNIQUE: Limited 4 quadrant ultrasound to assess for ascites FINDINGS: There is free fluid within the abdomen in all 4 quadrants with the greatest pocket on the right IMPRESSION: Moderate ascites Accredited by the [employer] in General Ultrasound. <Electronically signed by Andrea Fernandez > 07/16/20 [id number]
[2020-07-17 06:00] VITALS: BP 117/64
[2020-07-17 08:18] LABS: HEMATOCRIT 28.3 % (42.0-52.0); MEAN CORPUSCULAR HEMOGLOBIN 31.4 pg (27.0-33.0); MEAN CORPUSCULAR HGB CONC 31.8 g/dl (32.0-36.5); MEAN CORPUSCULAR VOLUME 98.6 fl (80.0-96.0); RED BLOOD COUNT 2.87 10^6/uL (4.30-6.10); WHITE BLOOD COUNT 8.8 10^3/uL (4.0-10.0)
[2020-07-17 08:27] LABS: PLATELET COUNT, AUTOMATED 76 10^3/uL (150-450)
[2020-07-17] MEDS: (RENVELA) SEVELAMER **CARBONate** 800 MG TAB PO SCH ×2 (08:41→12:49)
[2020-07-17] MEDS: PANTOPRAZOLE 40MG TAB (PROTONIX) PO SCH (08:41)
[2020-07-17] MEDS: ROSUVASTATIN 10 MG TAB (CRESTOR) PO SCH (08:41)
[2020-07-17] MEDS: SUCRALFATE SUSP 1GM/10ML UD PO SCH ×2 (08:42→12:49)
[2020-07-17 08:44] LABS: CALCIUM LEVEL 9.2 MG/DL (8.8-10.2); CREATININE FOR GFR 3.99 MG/DL (0.70-1.30); GLOMERULAR FILTRATION RATE 15.6 (>42); POTASSIUM SERUM 4.7 MEQ/L (3.5-5.1)
[2020-07-17] MEDS: PENTOXIFYLLINE 400 MG TAB PO SCH (09:53)
--- NOTE | 2020-07-17 12:48 | DS.PDOC ---
Discharge Summary General Date of Admission Jul 11, 2020 at 18:25 Date of Discharge 07/17/2020 Discharge Summary PROCEDURES PERFORMED DURING STAY: [None]. ADMITTING DIAGNOSES: 1. Weakness DISCHARGE DIAGNOSES: 1. Symptomaic anemia due to acute blood loss COMPLICATIONS/CHIEF COMPLAINT: Symptomatic Anemia. HISTORY OF PRESENT ILLNESS: Admitting H&P: This 80 old gentleman presented with complaints of feeling very weak for the last 2-3 weeks. He has also been having dry heaves that her more severe when he tries to eat. Today he felt a lot weaker and he didn't have enough energy to get up to wash up or to take care of himself, therefore he decided come to the hospital for evaluation. He admits to feeling short of breath but denies having any chest pain, abdominal pain, vomiting, falling, or having any blood in his stools. His told him that he looks a little bit more pale than usual and he has had dark stools for more than one month. HOSPITAL COURSE: 10 y/o male c/o black stools, weakness, dry heaves found to have symptomatic anemia w hgb 6.2 and hyperkalemia 5.2 acute blood loss anemia -s/p4urbc -egd/colonoscopy:esophagitis,gastritis, avm s/p clip,nonbleeding hemorrhoids -no recurrent bleed -hemodynamically stable -ppi and carafate -resumed on po diet and tolerating well ESRD via left lower arm fistula on maintenance dialysis, cleared by nephrology for discharge today Inferior septal ME / Coronary bypass with subsequent placement of stents in either [place] for bypass vessels. -denies acute ischemic complaints - Follow up with PCP to repeat CBC to decide if AV should be held. I will resume it at time of discharge given stable HH and no further bleeding. CVA 2 - I continued his ASA given no more bleeding and stable HH Gout AAA repair DISCHARGE MEDICATIONS: Please see below. ALLERGIES: Please see below. PHYSICAL EXAMINATION ON DISCHARGE: VITAL SIGNS: Please see below. Constitutional: Awake and alert, in no apparent distress elderly frail male ENT: Sclera is clear. Respiratory: Lungs CTA bilaterally. No respiratory distress. No use of accessory muscles. On room air Cardiovascular: RRR S1 and S2 are normal, no murmur Gastrointestinal: Abdomen is soft, non distended, non tender, BS present. Musculoskeletal: Bilateral None pitting lower extremity edema. Neurologic: No focal neurological deficit. Mental Status: A&O x3, normal affect Skin: Warm, dry. Left arm fistula LABORATORY DATA: Please see below. IMAGING: see chart PROGNOSIS: fair ACTIVITY: [As tolerated]. DIET: low salt diet DISPOSITION: home with home care DISCHARGE INSTRUCTIONS: Please follow up with your primary care physician within 1 week from discharge. If you do not have one, please follow up with us to schedule an appointment. Please keep all of your follow up appointments. Please call central to book your appointments with hospital specialists. Please take all your medications as prescribed. Please call/come to Clinic or go to the Emergency Department if - Temp >101, intractable Nausea/Vomiting, Diarrhea, Mouth sores, Headaches, Altered mental status, Seizures, sudden onset of swelling, bleeding, shortness of breath or chest pain. ITEMS TO FOLLOWUP ON ON OUTPATIENT: 1. follow up with PCP and nephorology DISCHARGE CONDITION: [Stable]. TIME SPENT ON DISCHARGE: 40 minutes. Vital Signs/I&Os Vital Signs Date Time Temp Pulse Resp B/P (MAP) Pulse Ox O2 Delivery O2 Flow Rate FiO2 07/17/20 06:00 98.3 82 18 117/64 (81) 95 Room Air 07/16/20 14:30 2.0 I&O- Last 24 Hours up to 6 AM 07/17/20 05:59 Intake Total 1120 ml Output Total 2000 ml Balance -880 ml Laboratory Data Labs 24H Laboratory Tests 2 07/17/20 07:46: Nucleated Red Blood Cells % (auto) 0.0, Immature Platelet Fraction 5.3, Anion Gap 12, Glomerular Filtration Rate 15.6L, Calcium Level 9.2 CBC/BMP Laboratory Tests 07/17/20 07:46 Discharge Medications Scheduled Aspirin (Aspirin EC) 81 Mg Tablet.dr, 81 MG PO QHS, (Reported) Pentoxifylline (Pentoxifylline) 400 Mg Tablet.er, 400 MG PO BID, (Reported) Rosuvastatin Calcium (Rosuvastatin Calcium) 10 Mg Tablet, 10 MG PO 3XW, (Reported) MON, WED, FRI Sevelamer Carbonate (Sevelamer Carbonate) 800 Mg Tablet, 2,400 MG PO WM, (Reported) Allergies Coded Allergies: Contrast Media (Verified Allergy, Severe, kidney damage, 07/11/20) RICK HERNANDEZ MD Jul 17, 2020 12:48
[2020-07-17] MEDS ORDERED: PANT40TA29 PO (12:50)
[2020-07-17 14:00] VITALS: BP 125/66
== END 2020-07-17 14:51 | disposition home health service (06) | DRG 377 ==
LOC: M ED 16:02 → M ED INP 18:25 → ENRESERV 07-12 04:38 → M PCU 07-12 05:20 → M MS5PR 07-16 19:09
PROVIDERS: ADMIT General Practice; ATTEND Family Medicine
PROC: 30233N1 Transfusion of Nonautologous Red Blood Cells into Peripheral Vein, Percutaneous Approach (ICD-10-PCS; principal; 2020-07-11)
PROC: 5A1D70Z Performance of Urinary Filtration, Intermittent, Less than 6 Hours Per Day (ICD-10-PCS; 2020-07-12)
PROC: 0DJ08ZZ Inspection of Upper Intestinal Tract, Via Natural or Artificial Opening Endoscopic (ICD-10-PCS; 2020-07-15)
PROC: 0DBK8ZX Excision of Ascending Colon, Via Natural or Artificial Opening Endoscopic, Diagnostic (ICD-10-PCS; 2020-07-15)
PROC: 0W3P8ZZ Control Bleeding in Gastrointestinal Tract, Via Natural or Artificial Opening Endoscopic (ICD-10-PCS; 2020-07-15)
DX: K55.21 Angiodysplasia of colon with hemorrhage (principal); N18.6 End stage renal disease; D62 Acute posthemorrhagic anemia; N25.81 Secondary hyperparathyroidism of renal origin; I50.32 Chronic diastolic (congestive) heart failure; I13.2 Hypertensive heart and chronic kidney disease with heart failure and with stage 5 chronic kidney disease, or end stage renal disease; E87.1 Hypo-osmolality and hyponatremia; R18.8 Other ascites; K29.70 Gastritis, unspecified, without bleeding; Z79.82 Long term (current) use of aspirin; Z79.899 Other long term (current) drug therapy; I25.2 Old myocardial infarction; M10.9 Gout, unspecified; Z86.73 Personal history of transient ischemic attack (TIA), and cerebral infarction without residual deficits; Z95.2 Presence of prosthetic heart valve; E87.5 Hyperkalemia; D69.6 Thrombocytopenia, unspecified; Z91.041 Radiographic dye allergy status; Z91.15 Patient's noncompliance with renal dialysis; D63.1 Anemia in chronic kidney disease; K64.8 Other hemorrhoids; K21.00 Gastro-esophageal reflux disease with esophagitis, without bleeding; K63.5 Polyp of colon; K57.30 Diverticulosis of large intestine without perforation or abscess without bleeding; D12.2 Benign neoplasm of ascending colon

== ENCOUNTER → 2020-09-13 | Outpatient (CLI) | payer MEDICARE ==
[~2020-09-13] MED LIST changes: +ASPI81TA27 PO; +CLOP75TA2 PO; +FERR240T PO; +FINA5TAB2 PO; +LIDO2.5C15; +NAPR220C14 PO; +PANT40TA29 PO; +PENT400T47 PO; +ROSU10TA6 PO; +SEVE800T3 PO; +VITA50005 PO
== END ==
LOC: M LABSMTC 09:45
PROVIDERS: ATTEND Anesthesiology
DX: Z01.812 Encounter for preprocedural laboratory examination (principal); Z20.822 Contact with and (suspected) exposure to COVID-19

== ENCOUNTER 2020-09-18 06:14 | Day surgery (SDC) | payer MEDICARE ==
[~2020-09-18] VITALS: Ht 177.8 cm; Wt 89.7 kg
[~2020-09-18 06:14] MED LIST changes: +LR 1,000 ML IV ONE; +ceFAZolin SOD 2 GM in IV 1 EA IV ONE
[2020-09-18] MEDS ORDERED: MIDAZOLAM INJ 2MG/2ML VIAL (J2250 PER 1MG) As Ordered ONE (06:43)
[2020-09-18] MEDS ORDERED: LIDOCAINE 2% 100MG/5ML SDV (FOR ANES.) As Ordered ONE (06:44)
[2020-09-18] MEDS ORDERED: PHENYLephrine 500MCG 5ML (100MCG/ML) SYRINGE As Ordered ONE ×2 (06:44→13:51)
[2020-09-18] MEDS ORDERED: propofoL 200 MG/20 ML VIAL As Ordered ONE (06:44)
[2020-09-18] MEDS ORDERED: fentaNYL 100 MCG/2 ML INJECTION (J3010) As Ordered ONE (06:44)
[2020-09-18] MEDS ORDERED: ePHEDrine SULFATE 25 MG/5 ML(5MG/ML) SYRINGE As Ordered ONE (06:44)
[2020-09-18] MEDS ORDERED: HEPARIN SOD (PORCINE) 5000UNITS/ML 1ML VIAL/SYRINGE As Ordered ONE (07:13)
[2020-09-18] MEDS ORDERED: LIDOCAINE 1% MDV 20ML VIAL As Ordered ONE (07:13)
[2020-09-18 09:40] VITALS: BP 120/64
--- NOTE | 2020-09-19 07:15 | RO ---
OPERATIVE NOTE DATE OF OPERATION: 09/18/2020 PREOPERATIVE DIAGNOSIS: End-stage renal disease. POSTOPERATIVE DIAGNOSIS: End-stage renal disease with ascites. PROCEDURE PERFORMED: Implantation of continuous ambulatory peritoneal dialysis catheter. SURGEON: Gildardo Godfrey MD SAFETY SUPERVISOR: ANESTHESIA: Local of 1% Xylocaine with monitored anesthesia care. INDICATIONS FOR THE PROCEDURE: The patient is a 80-year-old man with end-stage renal disease currently on hemodialysis. He is now for placement of a continuous ambulatory peritoneal dialysis (CAPD) catheter to consider change to peritoneal dialysis. DESCRIPTION OF PROCEDURE: The patient was brought to the operating room and placed on the table in a supine position. He received sedation from anesthesia. The patient's abdomen was prepped and draped in a sterile fashion. A site was selected for placement of the catheter in the left upper quadrant. The patient's abdomen was noted to be quite protuberant with a suggestion of a fluid wave. An approximately 3 cm left upper quadrant paramedian incision was made. This was deepened through the subcutaneous tissues to the fascia, which was opened. The patient was noted to have a diastasis with no rectus muscle in the area of the incision but the fascia was of good quality. So the fascia was opened longitudinally. The peritoneum was opened in a small spot and a pursestring suture of 2-0 Vicryl was placed. The 62-cm [place] double-pledgeted pigtail catheter was then placed over a stylette and advanced into the abdomen directed inferiorly along the posterior aspect of the anterior abdominal wall. The catheter was slipped off the stylette. The inner pledget was placed just outside the peritoneum and the pursestring suture of 2-0 Vicryl was tied down and tied about the pledget. The fascia was then closed with a running suture of 1-0 Vicryl. The catheter was tunneled through the subcutaneous tissues to exit through a small stab incision. The infusion hub was attached to the catheter. A liter of sterile saline was then infused through the catheter. While the fluid was infusing, the subcutaneous tissues were approximated with chromic and the skin edges were approximated with a running subcuticular 4-0 Vicryl. Dermabond was applied to the incision. Once the liter of saline was nearly completely infused, the bag was dropped with return of some lightly brownish-yellow colored fluid. There was excellent return of fluid consistent with return of the liter plus some ascites. I allowed a total of 2300 mL to return though I suspect there was more that might have drained if I had let it. The catheter was then plugged. The catheter was flushed with 1 mL of 5000 units per mL heparin and 1.2 mL of sterile saline. The catheter was capped and a small clamp was applied to the catheter as well. The site was dressed with a chlorhexidine gluconate OpSite. This was covered with gauze and the catheter was coiled beneath the gauze and this was all held in place with tape. The patient tolerated the procedure well with no apparent complication. He was awakened in the operating room and moved to the advanced recovery room in stable condition.
== END 2020-09-18 11:25 | disposition home or self-care (01) ==
LOC: M SDC 06:14
PROVIDERS: ATTEND Surgery
DX: N18.6 End stage renal disease (principal); R18.8 Other ascites; I12.0 Hypertensive chronic kidney disease with stage 5 chronic kidney disease or end stage renal disease; M10.9 Gout, unspecified; I25.2 Old myocardial infarction; I50.9 Heart failure, unspecified; Z98.61 Coronary angioplasty status; Z95.1 Presence of aortocoronary bypass graft; K21.9 Gastro-esophageal reflux disease without esophagitis; D64.9 Anemia, unspecified; Z79.82 Long term (current) use of aspirin; Z79.899 Other long term (current) drug therapy; Z91.041 Radiographic dye allergy status
CPT/HCPCS: 36415; 49421; 84132; J0690; J1644; J2370; J3010

== ENCOUNTER 2020-10-01 16:39 | Emergency (ER) | payer MEDICARE ==
[~2020-10-01] VITALS: Ht 177.8 cm; Wt 77.3 kg
[2020-10-01 16:40] VITALS: BP 126/66
--- NOTE | 2020-10-01 17:32 | REP ---
INDICATION: SEPSIS/SHOCK. COMPARISON: Frontal view obtained as part of an abdominal series 07/11/2020 TECHNIQUE: Portable FINDINGS: The technique utilized in obtaining the radiograph has magnified the cardiac silhouette and accentuated the interstitial markings. The superior mediastinal structures are midline. The heart is enlarged. Note is again made of previous median sternotomy. There is a diffuse increase in the interstitial markings with a haziness throughout the pulmonary vascularity. There are no patchy parenchymal opacities or pleural effusions. There is no change in the osseous structures.. IMPRESSION: Mild interstitial edema. <Electronically signed by Andrea Fernandez > 10/01/20 [id number]
== END 2020-10-01 21:17 | disposition left against medical advice (07) ==
LOC: M ED 16:39
DX: Z53.21 Procedure and treatment not carried out due to patient leaving prior to being seen by health care provider (principal)

== ENCOUNTER → 2020-10-01 | Outpatient (CLI) | payer MEDICARE ==
[~2020-10-01] MED LIST changes: -LR 1,000 ML IV ONE; -ceFAZolin SOD 2 GM in IV 1 EA IV ONE
--- NOTE | 2020-10-01 09:15 | REP ---
INDICATION: ESRD, ASCITIES, CHR DIASTOLIC CHF. COMPARISON: 07/16/2020. TECHNIQUE: Real-time sonographic evaluation of ABDOMEN performed. FINDINGS: The gallbladder is contracted and contains multiple calculi. There is no intrahepatic or extrahepatic biliary dilatation, common bile duct measures 5 mm in maximum diameter. The liver demonstrates homogeneous echotexture with no gross mass. Hepatic veins are prominent in size suggesting congestive heart failure. Pancreas is not optimally visualized due to overlying bowel gas, the visualized portions are grossly unremarkable. Spleen is normal in size with no intrinsic abnormality, measuring 8.3 cm in length. There are 2 calcified granulomas identified in the spleen. The kidneys are atrophic and demonstrate no hydronephrosis. In the lower pole the right kidney is a cystic area measures 1.1 cm in diameter. Two cystic areas are seen in the lateral left kidney measuring 1.9 and 1.2 cm in maximum diameter. The right kidney measures 7.2 x 5.6 x 4.3 cm. Left renal dimensions are 86.7 x 3.4 x 3.2 cm. There is mild free fluid in the abdomen. IMPRESSION: Contracted gallbladder containing multiple calculi. No biliary dilatation. Mild diffuse free fluid. Bilateral renal atrophy without hydronephrosis. <Electronically signed by Frank Rodriguez > 10/01/20 [id number]
== END ==
LOC: M RAD 06:31
PROVIDERS: ATTEND Internal Medicine Nephrology
DX: N18.6 End stage renal disease (principal); I50.32 Chronic diastolic (congestive) heart failure; R18.8 Other ascites

== ENCOUNTER → 2021-01-24 | Outpatient (CLI) | payer MEDICARE ==
[~2021-01-24] MED LIST changes: +ERGO500029 PO; +ISOVUE-370 76% 100ML VIAL As Ordered ONE; +LIDO1CRE42; -LIDO2.5C15; -VITA50005 PO
--- NOTE | 2021-01-24 14:25 | REP ---
INDICATION: SOB, COUGH COMPARISON: Multiple the latest 09/28/2019 also after intravenous contrast administration TECHNIQUE: Standard helical technique after the intravenous administration of 100 cc Isovue 370 FINDINGS: There is mediastinal and right hilar adenopathy which appears unchanged. There are no pleural or pericardial effusions. There is four-chamber cardiac enlargement. Chronic changes are seen involving the imaged osseous structures status quo. The imaged upper abdomen shows ascites and cholelithiasis. There are chronic renal changes status quo. Evaluation of the lung slade shows scattered patchy and curvilinear asymmetric predominantly interstitial opacities status quo. A few scattered ground-glass opacities are also evident particularly in the upper lobe region bilaterally status quo. There are areas of irregular pleural thickening and calcific pleural plaquing status quo. No definite new abnormality seem to have developed. IMPRESSION: 1. Stable appearing adenopathy. 2. Chronic lung field changes as described above. 3. Imaged upper abdomen findings as described above. 4. Other findings as described above. <Electronically signed by Andrea Fernandez > 01/24/21 [id number]
== END ==
LOC: M RAD 13:21
PROVIDERS: ATTEND Internal Medicine Nephrology
DX: R05 Cough (principal); R06.02 Shortness of breath
CPT/HCPCS: 71260; Q9967

== ENCOUNTER → 2021-02-23 | Outpatient (CLI) | payer MEDICARE ==
[~2021-02-23] MED LIST changes: -ISOVUE-370 76% 100ML VIAL As Ordered ONE
== END ==
LOC: M LABSMTC 10:30
PROVIDERS: ATTEND Surgery Vascular Surgery
DX: Z01.818 Encounter for other preprocedural examination (principal); Z11.52 Encounter for screening for COVID-19